=== PATIENT | male | born 1955 | race Caucasian/White ===

== ENCOUNTER → 2017-08-10 14:17 | Outpatient (CLI) | payer OTHER, SELFPAY ==
[2017-08-10 18:01] LABS: Absolute Neutrophil Count 5.6 X10^3/uL (2.0-7.7); Basophil# 0.02 X10^3/uL; Basophil% 0.2 % (0-1); Eosinophil# 0.47 X10^3/uL; Eosinophils% 4.8 % (0-5); Hematocrit 34.2 % (40-54); Hemoglobin 10.5 g/dl (13.0-16.5); Lymphocyte % 27.7 % (19-41); Mean Corp Hgb Conc 30.7 g/gl (32-36); Mean Corpuscular Hgb 27.4 pg (27.0-32.0); Mean Corpuscular Volume 89.3 fL (80-94); Mean Platelet Vol. 10.5 fl (6.2-12.0); Monocyte# 0.94 X10^3/uL; Monocyte% 9.6 % (0-10); Neutrophil # 5.58 X10^3/uL (2.7-7.7); Neutrophil % 57.3 % (47-70); Platelet Count 348 K/mm3 (150-450); RBC Distribution Width CV 13.5 % (11.6-14.6); Red Blood Count 3.83 M/mm3 (4.6-6.2); White Blood Count 9.8 K/mm3 (4.4-11.0)
[2017-08-10 18:22] LABS: POSITIVE COUNT NO; POSITIVE DIFFERENTIAL NO; POSITIVE MORPHOLOGY NO
[2017-08-10 18:31] LABS: Anion Gap 12 (5-15); BUN 28 mg/dL (7-18); BUN/Creat Ratio 17.5 RATIO (10-20); Calcium,Total 8.6 mg/dL (8.5-10.1); Chloride 104 mmol/L (98-107); EST Glomerular Filtration Rate 47 mL/min (>60); Est Glom Filt Rate - Afr Amer 57 mL/min (>60); Glucose 77 mg/dL (74-106); Potassium 3.9 mmol/L (3.5-5.1); Sodium Level 140 mmol/L (136-145)
== END ==
PROVIDERS: Family Provider Family Medicine; PCP Family Medicine; Visit Provider Family Medicine
DX: R55 Syncope and collapse (principal)
CPT/HCPCS: 36415; 80048; 85025

== ENCOUNTER → 2017-09-30 14:52 | Outpatient (CLI) | payer OTHER, SELFPAY ==
[2017-09-30 16:07] LABS: Anion Gap 8 (5-15); BUN 25 mg/dL (7-18); BUN/Creat Ratio 12.9 RATIO (10-20); Chloride 107 mmol/L (98-107); Creatinine, Serum 1.94 mg/dL (0.70-1.30); EST Glomerular Filtration Rate 37 mL/min (>60); Est Glom Filt Rate - Afr Amer 45 mL/min (>60); Glucose 124 mg/dL (74-106); Potassium 3.9 mmol/L (3.5-5.1); Sodium Level 141 mmol/L (136-145)
== END ==
PROVIDERS: Family Provider Family Medicine; PCP Family Medicine; Visit Provider Family Medicine
DX: R42 Dizziness and giddiness (principal)
CPT/HCPCS: 36415; 80048

== ENCOUNTER → 2017-11-14 16:55 | Outpatient (CLI) | payer OTHER, SELFPAY ==
--- NOTE | 2017-11-14 16:55 | DT_ITS ---
This patient was seen during an EMR downtime November 07, 2017 - November 14, 2017. This patient may have a combination of paper and electronic documentation or all paper documentation. All documentation is viewable within the e-chart portion of [facility] for each patient visit.
[2017-11-14 18:00] LABS: Anion Gap 8 (5-15); BUN 20 mg/dL (7-18); BUN/Creat Ratio 16.3 RATIO (10-20); Calcium,Total 8.5 mg/dL (8.5-10.1); Chloride 108 mmol/L (98-107); Creatinine, Serum 1.23 mg/dL (0.70-1.30); EST Glomerular Filtration Rate 63 mL/min (>60); Est Glom Filt Rate - Afr Amer 77 mL/min (>60); Glucose 85 mg/dL (74-106); Potassium 3.9 mmol/L (3.5-5.1); Sodium Level 143 mmol/L (136-145)
== END ==
PROVIDERS: Family Provider Family Medicine; PCP Family Medicine; Visit Provider Family Medicine
DX: I10 Essential (primary) hypertension (principal)
CPT/HCPCS: 36415; 80048

== ENCOUNTER → 2017-12-30 13:58 | Outpatient (CLI) | payer MEDICARE, SELFPAY ==
[2017-12-30 16:04] LABS: Anion Gap 7 (5-15); BUN 23 mg/dL (7-18); BUN/Creat Ratio 20.5 RATIO (10-20); Calcium,Total 8.7 mg/dL (8.5-10.1); Chloride 112 mmol/L (98-107); Creatinine, Serum 1.12 mg/dL (0.70-1.30); EST Glomerular Filtration Rate 70 mL/min (>60); Est Glom Filt Rate - Afr Amer 85 mL/min (>60); Glucose 115 mg/dL (74-106); Magnesium 2.2 mg/dL (1.6-2.6); Sodium Level 145 mmol/L (136-145)
== END ==
PROVIDERS: Family Provider Family Medicine; PCP Family Medicine; Visit Provider Family Medicine
DX: N28.9 Disorder of kidney and ureter, unspecified (principal)
CPT/HCPCS: 36415; 80048; 83735

== ENCOUNTER → 2018-11-03 | Outpatient (CLI) | payer MEDICARE, SELFPAY ==
[2018-11-03 16:31] LABS: Anion Gap 9 (5-15); BUN 23 mg/dL (7-18); BUN/Creat Ratio 23.1 RATIO (10-20); Calcium,Total 8.7 mg/dL (8.5-10.1); Chloride 106 mmol/L (98-107); Cholesterol 162 mg/dL (200); Creatinine, Serum 0.99 mg/dL (0.70-1.30); EST Glomerular Filtration Rate 81 mL/min (>60); Est Glom Filt Rate - Afr Amer 98 mL/min (>60); Glucose 72 mg/dL (74-106); High Density Lipoprotein 50 mg/dL; PSA,Total - Annual Screen 2.01 ng/mL (0.00-4.00); Potassium 4.5 mmol/L (3.5-5.1); Sodium Level 142 mmol/L (136-145); Triglycerides 164 mg/dL; Very Low Density Lipoprotein 33 mg/dL (5-40)
== END | disposition home or self-care (01) ==
PROVIDERS: Family Provider Family Medicine; PCP Family Medicine; Referring Provider Family Medicine; Visit Provider Family Medicine
DX: N40.0 Benign prostatic hyperplasia without lower urinary tract symptoms (principal); F32.9 Major depressive disorder, single episode, unspecified; Z12.5 Encounter for screening for malignant neoplasm of prostate
CPT/HCPCS: 36415; 80048; 80061; 84153; G0103

== ENCOUNTER → 2019-02-26 | Outpatient (CLI) | payer MEDICARE, SELFPAY ==
--- NOTE | 2019-02-26 08:30 | RAD_ITS ---
STUDY: X-RAY - ESOPHAGUS (BARIUM SWALLOW) WITH FLUOROSCOPY REASON FOR EXAM: Male, 64 years old. Dysphagia. Cough and reflux. TECHNIQUE: 24 view(s) of the esophagus were obtained following swallowing of barium. FLUOROSCOPY TIME (if supplied): (0:41) minutes/seconds COMPARISON: None. FINDINGS: There is no demonstrated esophageal foreign body. Tertiary contractions of the distal esophagus. Normal gastroesophageal junction, without a demonstrated hiatal hernia. The patient ingested a 12 mm tablet of barium. The tablet is trapped at the gastroesophageal junction. There is atherosclerotic tortuosity of the aortic arch and descending thoracic aorta. Normal visualized pulmonary parenchyma. There are diffuse degenerative changes of the visualized thoracic spine. RAD/Esophagus Only IMPRESSION: Tertiary contractions of the distal esophagus. The 12 mm tablet of barium is trapped at the gastroesophageal junction. Electronically Signed: Glen Conteh, at 13:04 EDT , Service support ,
== END | disposition home or self-care (01) ==
LOC: RAD 08:20
PROVIDERS: Family Provider Family Medicine; PCP Family Medicine; Referring Provider Family Medicine; Visit Provider Family Medicine
DX: R13.10 Dysphagia, unspecified (principal)
CPT/HCPCS: 74220

== ENCOUNTER → 2019-04-27 07:54 | Outpatient (CLI) | payer MEDICARE, SELFPAY ==
--- NOTE | 2019-04-27 08:01 | AAVD_ITS ---
Reason For Study: FAM HX AA Aorta Measurements Aorta Doppler Measurements Proximal aorta measures1.8 X 1.75cm. in cross- Peak systolic flow velocities within the proximal sectional axis. aorta measure 55 cm/sec. Proximal aorta measures1.87cm. in longitudinal Peak systolic flow velocities within the mid aorta axis. measure 65 cm/sec. Mid aorta measures1.9 X 1.82cm. in cross-sectionalPeak systolic flow velocities within the distal axis. aorta measure 57 cm/sec. Mid aorta measures1.86cm. in longitudinal axis. Distal aorta measures1.73 X 1.78cm. in cross- sectional axis. Distal aorta measures1.78cm. in longitudinal axis. Left Iliac Artery Left iliac artery measures 1.4 cm. in the longitudinal axis. Left iliac artery measures 1.4 X 1.5 cm. in the cross-sectional axis. Peak systolic velocity in the left iliac artery measures 44 cm/sec. Right Iliac Artery Right iliac artery measures 1.3 cm. in the longitudinal axis. Right iliac artery measures 1.2 X 1.2 cm. in the cross-sectional axis. Peak systolic velocity in the right iliac artery measures 40 cm/sec. Procedure Aorta IVC Iliac vasculature or bypass grafts 71726. Exam performed in department. Interpretation Summary Maximal aortic diameter mid aorta 1.9 x 1.82 cm with normal flow velocity Left iliac 1.4 x 1.5 cm, normal flow velocity Right iliac 1.2 x 1.2 cm, normal flow velocity Ordering Physician: Vern Richardson Referring Physician: Vern Richardson Performed By: Joselin Braden, SUZANNE, RVT
== END ==
PROVIDERS: Family Provider Family Medicine; PCP Family Medicine; Referring Provider Family Medicine; Visit Provider Family Medicine
DX: I10 Essential (primary) hypertension (principal); Z82.49 Family history of ischemic heart disease and other diseases of the circulatory system
CPT/HCPCS: 93978

== ENCOUNTER → 2019-05-21 09:38 | Outpatient (CLI) | payer MEDICARE, SELFPAY ==
--- NOTE | 2019-05-21 09:41 | RAD_ITS ---
STUDY: X-RAY - ESOPHAGUS (BARIUM SWALLOW) WITH FLUOROSCOPY REASON FOR EXAM: Male, 64 years old. Dysphasia and gastroesophageal reflux disease. TECHNIQUE: 20 view(s) of the esophagus were obtained following swallowing of barium. FLUOROSCOPY TIME (if supplied): (0:38) minutes/seconds COMPARISON: None. FINDINGS: There is no demonstrated esophageal foreign body. There is evidence of tertiary contractions involving the distal portion of the esophagus. Normal gastroesophageal junction, without a demonstrated hiatal hernia. The patient ingested a 12 mm tablet of barium. The tablet is trapped at the gastroesophageal junction. There is atherosclerotic tortuosity of the aortic arch and descending thoracic aorta. Normal visualized pulmonary parenchyma. Normal visualized osseous structures of the thorax. RAD/Esophagus Only IMPRESSION: Tertiary contractions of the distal esophagus. The 12 mm tablet barium is trapped at the gastroesophageal junction. Electronically Signed: Glen Conteh, at 15:39 EST , Service support ,
== END ==
PROVIDERS: Family Provider Family Medicine; PCP Family Medicine; Referring Provider Internal Medicine Gastroenterology; Visit Provider Internal Medicine Gastroenterology
DX: R13.10 Dysphagia, unspecified (principal)
CPT/HCPCS: 74220

== ENCOUNTER → 2019-06-14 12:36 | Outpatient (CLI) | payer MEDICARE, SELFPAY ==
--- NOTE | 2019-06-14 12:40 | RAD_ITS ---
STUDY: X-RAY CHEST REASON FOR EXAM: Male, 64 years old. Sob TECHNIQUE: PA and lateral views of the chest. COMPARISON: 2014 FINDINGS: There are interstitial fibrotic changes of the lungs. There is no demonstrated pleural abnormality. Normal size heart. Normal mediastinum and rosalee. Normal visualized pulmonary arteries. Normal visualized aortic arch and descending thoracic aorta. Normal visualized thoracic spine. Normal visualized ribs, clavicles, and shoulders. There is no demonstrated abnormality of the visualized soft tissue structures of the upper abdomen. RAD/Chest PA and Lateral IMPRESSION: Chronic interstitial changes, no acute pulmonary process Electronically Signed: Chang Nugent MD at 17:07 EST , Service support ,
[2019-06-14 14:14] LABS: Absolute Lymphocyte Count 1.98 X10^3/uL (0.83-4.51); Absolute Neutrophil Count 7.7 X10^3/uL (2.0-7.7); Basophil# 0.02 X10^3/uL; Basophil% 0.2 % (0-1); Eosinophil# 0.17 X10^3/uL; Eosinophils% 1.4 % (0-5); Lymphocyte # 1.98 X10^3/ul (4.0); Lymphocyte % 16.4 % (19-41); Mean Corp Hgb Conc 31.1 g/dL (32-36); Mean Corpuscular Hgb 26.8 pg (27.0-32.0); Mean Platelet Vol. 11.3 fl (6.2-12.0); Monocyte# 2.14 X10^3/uL; Monocyte% 17.7 % (0-10); NRBC Flagged by Analyzer 0 % (0-5); Neutrophil # 7.71 X10^3/uL (2.7-7.7); Neutrophil % 63.9 % (47-70); POSITIVE DIFFERENTIAL YES; Platelet Count 234 K/mm3 (150-450); RBC Distribution Width CV 13.4 % (11.6-14.6); RBC Distribution Width SD 42.5 fl (35.1-43.9); Red Blood Count 5.23 M/mm3 (4.6-6.2); White Blood Count 12.1 K/mm3 (4.4-11.0)
[2019-06-14 14:19] LABS: Differential Indicated SCAN CRITERIA MET
[2019-06-14 14:24] LABS: Anion Gap 8 (5-15); BUN 22 mg/dL (7-18); BUN/Creat Ratio 12.9 RATIO (10-20); Chloride 106 mmol/L (98-107); EST Glomerular Filtration Rate 43 mL/min (>60); Est Glom Filt Rate - Afr Amer 52 mL/min (>60); Glucose 113 mg/dL (74-106); Potassium 3.7 mmol/L (3.5-5.1); Sodium Level 139 mmol/L (136-145)
[2019-06-15 14:21] LABS: Pathologist Review Reviewed
== END ==
PROVIDERS: Family Provider Family Medicine; PCP Family Medicine; Referring Provider Family Medicine; Visit Provider Family Medicine
DX: R06.02 Shortness of breath (principal)
CPT/HCPCS: 36415; 71046; 80048; 85025

== ENCOUNTER → 2020-06-13 16:11 | Outpatient (CLI) | payer MEDICARE, OTHER, SELFPAY ==
--- NOTE | 2020-06-13 16:20 | RAD_ITS ---
HISTORY: LEFT KNEE PAIN ADDITIONAL HISTORY: None provided. EXAMINATION/TECHNIQUE: XR Knee 3 Views Left Number of images including paperwork: 3 COMPARISON: None FINDINGS: BONES: No acute fracture. JOINTS: No subluxation. Severe degenerative changes in the medial compartment with joint space narrowing, subchondral sclerosis and osteophyte formation. Mild degenerative changes elsewhere. Small to moderate sized joint effusion. SOFT TISSUES: No distinct foreign body. RAD/Knee 3 Views IMPRESSION: Degenerative changes without acute osseous abnormality. Left knee joint effusion. at 0442 Reported and signed by: Kandis Diaz MD Electronically Signed: Kandis Diaz MD at 4:42 EST Tel , Service support ,
== END ==
PROVIDERS: PCP Family Medicine; Referring Provider Anesthesiology Pain Medicine; Visit Provider Anesthesiology Pain Medicine
DX: M25.562 Pain in left knee (principal)
CPT/HCPCS: 73562

== ENCOUNTER → 2020-08-08 13:55 | Outpatient (CLI) | payer MEDICARE, OTHER, SELFPAY ==
[2020-08-08 18:16] LABS: Anion Gap 8 (5-15); BUN 21 mg/dL (7-18); BUN/Creat Ratio 19.6 RATIO (10-20); Calcium,Total 8.9 mg/dL (8.5-10.1); Chloride 105 mmol/L (98-107); Cholesterol 125 mg/dL (200); Creatinine, Serum 1.07 mg/dL (0.70-1.30); EST Glomerular Filtration Rate 74 mL/min (>60); Est Glom Filt Rate - Afr Amer 89 mL/min (>60); Glucose 85 mg/dL (74-106); High Density Lipoprotein 45 mg/dL; Potassium 3.8 mmol/L (3.5-5.1); Sodium Level 140 mmol/L (136-145); Triglycerides 196 mg/dL; Very Low Density Lipoprotein 39 mg/dL (5-40)
== END ==
PROVIDERS: PCP Family Medicine; Referring Provider Family Medicine; Visit Provider Family Medicine
DX: I10 Essential (primary) hypertension (principal)
CPT/HCPCS: 36415; 80048; 80061

== ENCOUNTER 2020-08-28 13:30 | Outpatient (RCR) | payer MEDICARE, OTHER, SELFPAY ==
--- NOTE | 2020-07-09 17:02 | HP.PTEVAL_ITS ---
Patient's Visit Information DIANE HERNANDES is a 65 year old M referred to Physical Therapy by Dr. Steve Ozuna MD with a diagnosis of L reverse TSA around 06/30. Date of Evaluation: 07/09/20 Physical Therapist: Inocencio Hunt, DPT, OCS, CSCS - Visit Plan Frequency: 2x /Week Duration: 2 Months Plan: 2x/week for 4-8 weeks... 1. elbow and shoulder PROM gentle but firm,s cap ROM, isometrics for circulation. Can progress to AAROM as tolerated and pt has tatiana at home to progress to. Pt will bring dtr to learn PROM next session. 2. Scar massage, Manual stretching to tolerance. 3. Strength L shoulder and posture. 4. ice as needed. Progression of HEP. - Subjective L shoulder reverse TSA 9 days ago around 06/29/20/ Was painful and could not lift it over head for years. Was scoped 10 yrs ago. No RC to repair so did reverse. Pain level is manageable with meds 5/10 over the shoulder adn down to elbow. In sling all the time except shower. Dtr helps zi[[ing coat. Sleep in recliner still and sleeps plenty 6-8 hours. Stumbled and twisted shoulder jarring it and it hurt.Live with . Dresses self and cooking and cleaning very little, everything is modified. Not employed. Hobbies: Wants to golf. HEP is getting out of sling and rest on knee and hand ROM, hand ROM, pendulum. - Pain R shoulder Pain Intensity (Out of 10): 5 Pain Intensity Range: 4, 8 - Objective Posture is forward head adn scapula, protected L UE, avoids extending elbow. - 30 L elbow extension in standing.-20 PROM elbow extension limited by pain. Full flexion . Pain is in elbow with attempted extension.but needs encouraged last few degrees on L. ScapulaROM on L 50% of R. Incisions OK today without problems subjectively. hand and wrist AROM and strength symmetrical and good B. Elbow strength not tested L. Cervical aROM normal and painfree and symmetrical. PROM L shoulder 80 flexion, 80 abduction limited by patients pain. ext rotation to 5 degrees firm endfeel adn painful. - Goals Goal 1:: ST AAROM to 130 elevation and 45 ext rotaion Goal Time Frame: 2-4 Weeks Goal 2:: Pain 0-2/10 at all times and sleep without interruption in bed. Goal Time Frame: 4-6 Weeks Goal 3:: Initiate strengthening L shoulder and elbow without pain. Goal 4:: LT: Plans to resume golfing Goal Time Frame: 6-8 Weeks Goal 5:: Pt feel 80% back to normal activities at home Goal Time Frame: 6-8 Weeks Goal 6:: Quick dash score less than 20 Goal Time Frame: 6-8 Weeks - Rehabilitation Potential Physical Therapy Diagnosis: s/p L rev TSA Rehabilitation Potential: Fair - Anticipated Interventions Patient/Client Instruction: Educate patient on: Condition, Plan of Care For the Purpose of:: To decrease pain, To increase ROM, To improve muscle performance and motor function, To increase tolerance to activity/condition/position, To improve ability of physical actions for home/community/work/leisure Therapeutic Exercise to Include: Strength training, Postural training, Flexibilty training, Passive ROM, Active ROM, Scapular Strength/Stabilization For the Purpose of:: To decrease pain, To increase ROM, To improve muscle performance and motor function, To increase tolerance to activity/condition/position, To improve ability of physical actions for home/community/work/leisure Manual Therapy Techniques to Include: Scar massage, Passive ROM, Soft tissue mobilization For the Purpose of:: To increase ROM Cryotherapy (ice pack, ice massage): Yes For the Purpose of:: To decrease pain, To decrease swelling/inflammation Thank you for the opportunity to evaluate your patient. For Medicare and Medicare HMO plans, please review the plan of care and approve it. It will need to be FAXED BACK to us at [phone] for Medicare purposes. For Medicare only, by signing this I certify the plan of care. Please let me know if there are questions or concerns regarding this plan of care. Physician Signature: D ate:
--- NOTE | 2020-07-31 16:56 | HP.PTREVAL_ITS ---
Dr. Steve Ozuna MD, It has been my pleasure to treat DIANE HERNANDES over the last 6 visits for L reverse TSA around 06/30. Please see the progress note below for an update on the physical therapy plan of care! Subjective: had TKA last week adn not sleeping a whole lot. Going the right way. Lifting arm easier adn higher.Pain 0-2/10 at rest. Worse with lifting 6/10. Sleeping in recliner due to shoulder pain. To Dr. Ozuna next week. HEP: ROM and scap circles adn stretches. Objective/Function: 115 aROM L elelvation, AROM er to neutral but prom elevation to 133 adn ext rotaation to 30. Still expected weakness adn ROM deficits , pain coming along well. Appropriate to cotninue POC toward goals. Plan Plan: 2x/week to continue AAROM, PROM and start isometric strength neutral and painfree. Pt to doctor next week. Goals Goal 1:: ST AAROM to 130 elevation and 45 ext rotaion Goal Time Frame: 2-4 Weeks Goal Progress: Progressing Goal 2:: Pain 0-2/10 at all times and sleep without interruption in bed. Goal Time Frame: 4-6 Weeks Goal Progress: Progressing Goal 3:: Initiate strengthening L shoulder and elbow without pain. Goal 4:: LT: Plans to resume golfing Goal Time Frame: 6-8 Weeks Goal 5:: Pt feel 80% back to normal activities at home Goal Time Frame: 6-8 Weeks Goal 6:: Quick dash score less than 20 Goal Time Frame: 6-8 Weeks Anticipated Interventions Patient/Client Instruction: Educate patient on: Condition, Plan of Care For the Purpose of:: To decrease pain, To increase ROM, To improve muscle performance and motor function, To increase tolerance to activity/condition/position, To improve ability of physical actions for home/community/work/leisure Therapeutic Exercise to Include: Strength training, Postural training, Flexibilty training, Passive ROM, Active ROM, Scapular Strength/Stabilization For the Purpose of:: To decrease pain, To increase ROM, To improve muscle performance and motor function, To increase tolerance to activity/condition/position, To improve ability of physical actions for girish e/community/work/leisure Manual Therapy Techniques to Include: Scar massage, Passive ROM, Soft tissue mobilization For the Purpose of:: To increase ROM Cryotherapy (ice pack, ice massage): Yes For the Purpose of:: To decrease pain, To decrease swelling/inflammation Please do not hesitate to contact me at [phone] by phone or if you have questions or concerns regarding this new plan of care! Sincerely, Inocencio Hunt, DPT, OCS, CSCS
--- NOTE | 2020-10-21 10:13 | HP.PT.NRP ---
DIANE HERNANDES was seen in my office for initial evaluation on 07/09/20. The following Plan of Care was established for this patient: Initial Frequency: 2x /Week Initial Duration: 2 Months Patient/Client Instruction: Educate patient on: Condition, Plan of Care For the Purpose of:: To decrease pain, To increase ROM, To improve muscle performance and motor function, To increase tolerance to activity/condition/position, To improve ability of physical actions for home/community/work/leisure Therapeutic Exercise to Include: Strength training, Postural training, Flexibilty training, Passive ROM, Active ROM, Scapular Strength/Stabilization For the Purpose of:: To decrease pain, To increase ROM, To improve muscle performance and motor function, To increase tolerance to activity/condition/position, To improve ability of physical actions for home/community/work/leisure Manual Therapy Techniques to Include: Scar massage, Passive ROM, Soft tissue mobilization For the Purpose of:: To increase ROM Cryotherapy (ice pack, ice massage): Yes For the Purpose of:: To decrease pain, To decrease swelling/inflammation This patient was last seen in our office 08/28/20. Pertinent comments regarding their Physical therapy will appear below: Pt seen 8 visits and was 25% better. He cancelled his alst couple visits as he was returning to doctor. At this point, it has been over 6 weeks and I will discontinue due to nonattendance. At this point I will be discontinuing this patient from physical therapy. I would be happy to see this patient again in the future if found appropriate by the physician. Thank you! Inocencio Hunt, DPT, OCS, CSCS
== END 2020-08-28 19:00 | disposition home or self-care (01) ==
LOC: PT 13:30
PROVIDERS: PCP Family Medicine; Referring Provider Orthopaedic Surgery; Visit Provider Orthopaedic Surgery
DX: M12.812 Other specific arthropathies, not elsewhere classified, left shoulder (principal)
CPT/HCPCS: 97110; 97140; 97161; 97530

== ENCOUNTER → 2021-06-02 15:10 | Outpatient (CLI) | payer MEDICARE, OTHER, SELFPAY ==
--- NOTE | 2021-06-02 16:00 | MRI_ITS ---
STUDY: MRI LUMBAR SPINE WITHOUT CONTRAST REASON FOR EXAM: Male, 66 years old. IDD TECHNIQUE: Standardized fat and water weighted pulse sequences were obtained in the sagittal and axial planes. COMPARISON: 02/28/2017 FINDINGS: Mild straightening of the alignment of the columns of the lumbar spine is visualized. No evidence of spondylolisthesis is seen. The lumbar vertebral bodies demonstrate no evidence of compression deformity, multilevel degenerative endplate changes seen. No evidence of T2 prolongation within the marrow of the lumbar vertebral bodies on the FLAIR sequence to suggest for acute fracture, edema or infiltrative process. Decreased intervertebral disc height visualized in the lumbar spine but most prominent at L1-L2 and L2-L3 . Disc desiccation visualized throughout the lumbar spine. The cord terminates at the level of the T12-L1 intervertebral disc space, there is a well-circumscribed lesion visualized along the dorsal aspect of the conus measuring 1.3 x 0.6 cm, it demonstrates T2 prolongation on both T1 and T2 weighted imaging with suppression of signal on the FLAIR sequence, no axial images were obtained through this lesion contrast was not administered. Limited images suggestive of intradural extra medullary in location, findings suggestive of a cord lipoma. Otherwise no abnormal signal intensity visualized within the terminal cord, terminal nerve fibers demonstrate no evidence of thickening or clumping. Normal visualized sacral ala. Normal visualized paraspinous soft tissue structures. L1-2: Right far lateral disc bulge with mild effacement of the right lateral space, hypertrophic changes of the facet joints bilaterally. No significant narrowing of the spinal canal with mild narrowing of bilateral neuroforamina seen at this level. L2-3: Circumferential disc bulge with hypertrophic changes in the facet joints bilaterally, mild narrowing of the spinal canal with moderate narrowing of bilateral neural foramina seen at this level. L3-4: Circumferential disc bulges hypertrophic changes in the facet joints and ligamentum flavum seen at this level, no significant narrowing of the spinal canal with mild to moderate narrowing of bilateral neuroforamina seen at this level. L4-5: Posterior disc bulges hypertrophic changes in the facet joints visualized bilaterally this level, mild effacement of the ventral CSF spaces but no significant narrowing of the spinal canal is seen, mild to moderate narrowing of the neural foramina is visualized bilaterally at this level. L5-S1: Posterior disc bulges hypertrophic changes in the facet joints visualized bilaterally this level, mild effacement of the ventral CSF spaces but no significant narrowing of the spinal canal is seen, mild to moderate narrowing of the neural foramina is visualized bilaterally at this level. MRI/Spine Lumbar (Routine) IMPRESSION: Multilevel degenerative changes of the lumbar spine visualized with mentioned above. 1.3 cm lesion visualized in the posterior aspect of the the terminal cord, suboptimally evaluated however suggestion of intradural and extramedullary location and signal intensity suggestive of lipoma. Electronically Signed: Austyn Medina MD at 8:58 EST Tel , Service support ,
== END ==
PROVIDERS: PCP Family Medicine; Referring Provider Anesthesiology Pain Medicine; Visit Provider Anesthesiology Pain Medicine
DX: M51.37 Other intervertebral disc degeneration, lumbosacral region (principal)
CPT/HCPCS: 72148

== ENCOUNTER → 2022-03-18 | Outpatient (CLI) | payer MEDICARE, OTHER, SELFPAY ==
[2022-03-18 15:54] LABS: ALB/GLOB Ratio 0.9 RATIO (0.9-2.4); AST(SGOT) 26 U/L (15-37); Alanine Aminotransfer ALT/SGPT 35 U/L (16-61); Albumin, Serum 3.6 g/dL (3.2-5.0); Alkaline Phosphatase 92 U/L (45-117); Anion Gap 6 (5-15); BUN 24 mg/dL (7-18); BUN/Creat Ratio 22.4 RATIO (10-20); Calcium,Total 8.8 mg/dL (8.5-10.1); Chloride 110 mmol/L (98-107); Cholesterol 131 mg/dL (200); Creatinine, Serum 1.07 mg/dL (0.70-1.30); EST Glomerular Filtration Rate 73 mL/min (>60); Est Glom Filt Rate - Afr Amer 89 mL/min (>60); Globulin 3.9 g/dL (2.2-4.2); Glucose 96 mg/dL (74-106); High Density Lipoprotein 53 mg/dL; Potassium 4.1 mmol/L (3.5-5.1); Protein, Total 7.5 g/dL (6.4-8.2); Sodium Level 141 mmol/L (136-145); Triglycerides 97 mg/dL; Very Low Density Lipoprotein 19 mg/dL (5-40)
== END | disposition home or self-care (01) ==
LOC: MFPLAB 11:41
PROVIDERS: PCP Family Medicine; Referring Provider Family Medicine; Visit Provider Family Medicine
DX: I10 Essential (primary) hypertension (principal)
CPT/HCPCS: 36415; 80053; 80061

== ENCOUNTER → 2022-06-26 | Outpatient (CLI) | payer MEDICARE, OTHER, SELFPAY ==
--- NOTE | 2022-06-26 13:11 | MRI_ITS ---
STUDY: MRI CERVICAL SPINE WITHOUT CONTRAST REASON FOR EXAM: Male, 67 years old. RADICULPATHY, DISC DEGEN TECHNIQUE: Standardized fat and water weighted pulse sequences were obtained in the sagittal and axial planes. COMPARISON: February 02, 2016 plain films, FINDINGS: Craniocervical junction is intact and aligned. There is reversal of cervical lordosis with mild kyphosis centered on C5-C6. Vertebral bodies are intact without displacement. Marrow and paraspinous soft tissues are normal. C2-C3 has patent canal and foramina. C3-C4 has uncinate and facet hypertrophy, asymmetrically worse on the left. There is mild canal stenosis without cord compression. Left foramen is moderately stenotic, right patent. C4-C5 has uncinate and facet hypertrophy and broad disc endplate osteophyte. There is mild canal stenosis. Left foramen is mildly stenotic, right is patent. C5-C6 has uncinate and facet hypertrophy and broad disc endplate osteophyte. There is moderate cord compression and moderate left and mild right foraminal stenosis. C6-C7 has uncinate and facet hypertrophy and asymmetric to the left disc endplate osteophyte. There is mild central and mild to moderate left-sided cord compression. Left foramen is mildly stenotic, right is patent. C7-T1 has uncinate and facet hypertrophy and disc degeneration. Canal and foramina are patent. MRI/Spine Cervical (Routine) IMPRESSION: 1. Moderate C5-C6, mild C3-C4, C4-C5 and C6-C7 cord compression. Electronically Signed: Yossi Ambriz MD at 14:55 EST ,
== END | disposition home or self-care (01) ==
LOC: MRI 13:10
PROVIDERS: PCP Family Medicine; Visit Provider Anesthesiology Pain Medicine
DX: M54.12 Radiculopathy, cervical region (principal); M50.30 Other cervical disc degeneration, unspecified cervical region
CPT/HCPCS: 72141

== ENCOUNTER → 2022-12-03 | Outpatient (CLI) | payer MEDICARE, OTHER, SELFPAY ==
[2022-12-03 17:48] LABS: ALB/GLOB Ratio 0.9 RATIO (0.9-2.4); AST(SGOT) 20 U/L (15-37); Alanine Aminotransfer ALT/SGPT 30 U/L (16-61); Albumin, Serum 3.6 g/dL (3.2-5.0); Alkaline Phosphatase 109 U/L (45-117); Anion Gap 6 (5-15); BUN 15 mg/dL (7-18); BUN/Creat Ratio 11.8 RATIO (10-20); Calcium,Total 9.1 mg/dL (8.5-10.1); Chloride 107 mmol/L (98-107); Cholesterol 134 mg/dL (200); Creatinine, Serum 1.27 mg/dL (0.70-1.30); EST Glomerular Filtration Rate 60 mL/min (>60); Est Glom Filt Rate - Afr Amer 73 mL/min (>60); Globulin 3.9 g/dL (2.2-4.2); Glucose 99 mg/dL (74-106); High Density Lipoprotein 49 mg/dL; Potassium 4.1 mmol/L (3.5-5.1); Protein, Total 7.5 g/dL (6.4-8.2); Sodium Level 139 mmol/L (136-145); Triglycerides 125 mg/dL; Very Low Density Lipoprotein 25 mg/dL (5-40)
== END | disposition home or self-care (01) ==
LOC: MFPLAB 15:06
PROVIDERS: PCP Family Medicine; Visit Provider Family Medicine
DX: E78.5 Hyperlipidemia, unspecified (principal)
CPT/HCPCS: 36415; 80053; 80061

== ENCOUNTER 2023-03-24 16:53 | Emergency (ER) | payer MEDICARE, OTHER, SELFPAY ==
[2023-03-24 16:54] VITALS: BP 152/76; PULSE 85; RESP 17; TEMP 36.1; O2SAT 97; BMI 22.3
--- NOTE | 2023-03-24 17:51 | EX.ED.GENINJ ---
HPI History of Present Illness Chief Complaint: Laceration Informant: patient Narrative Narrative: Laceration to the dorsal medial aspect of his left nondominant hand ring finger. This was cut on the blade of a chainsaw. It happened just about an hour or so ago. He takes aspirin but no other blood thinners. No numbness or tingling. He states it really does not hurt at all. [facility] Medical History (Updated 03/24/23 @ 19:[address] Kiran Coyle MD) Cervical spine degeneration High cholesterol Lumbar degenerative disc disease Home Medications alprazolam 1 mg tablet (Xanax) 1 mg PO 4X/DAY 01/30/15 [History Last Taken Unknown] lisinopril 10 mg-hydrochlorothiazide 12.5 mg tablet (Zestoretic) 1 tab PO DAILY 01/30/15 [History Last Taken Unknown] meclizine 25 mg tablet 25 mg PO 4X/DAY PRN PRN Migraine Symptoms 01/30/15 [History Last Taken Unknown] naproxen 500 mg tablet 500 mg PO BID PRN PRN Pain 01/30/15 [History Last Taken Unknown] oxycodone-acetaminophen 5 mg-325 mg tablet 1 tab PO Q6H PRN PRN Pain 01/30/15 [History Last Taken 01/06/16 07:00] pravastatin 40 mg tablet 40 mg PO QHS 01/30/15 [History Last Taken Unknown] sumatriptan succinate 100 mg tablet (Imitrex) 100 mg PO .X1 PRN MIGRAINES 01/30/15 [History Last Taken Unknown] Oxymorphone Hcl [Opana Er] 20 mg PO BID 01/01/16 [History Last Taken Unknown] aspirin 325 mg tablet,delayed release 325 mg PO DAILY@0800 01/01/16 [History Last Taken Unknown] bupropion HCl 150 mg tablet,12 hr sustained-release 150 mg PO BID 01/01/16 [History Last Taken Unknown] quetiapine 300 mg tablet (Seroquel) 300 mg PO QHS 01/01/16 [History Last Taken Unknown] tizanidine 4 mg tablet (Zanaflex) 8 mg PO BID 01/01/16 [History Last Taken Unknown] zolpidem 12.5 mg tablet,extended release,multiphase (Ambien CR) 12.5 mg PO QHS PRN PRN Insomnia 01/01/16 [History Last Taken Unknown] Oxymorphone Hcl [Opana Er] 20 mg PO Q12H ##60 01/06/16 [Rx Last Taken Unknown] docusate sodium 100 mg capsule (DOK) 100 mg PO BID PRN PRN Constipation ##10 01/06/16 [Rx Last Taken Unknown] oxycodone-acetaminophen 5 mg-325 mg tablet 1 - 2 tab PO Q4H PRN PRN Pain #90 tabs 01/06/16 [Rx Last Taken Unknown] promethazine 25 mg tablet 25 mg PO Q4H PRN PRN Nausea ##10 01/06/16 [Rx Last Taken Unknown] doxycycline monohydrate 100 mg capsule 100 mg PO BID #10 CAPSULES 03/24/23 [Rx Last Taken Unknown] Allergy/AdvReac Type Severity Reaction Status Date / Time cefazolin sodium [From Ancef] AdvReac Itching Verified 03/24/23 16:54 niacin AdvReac Itching Verified 03/24/23 16:54 [From Niaspan Extended-Release] Social History Smoking Status: Former smoker ROS ROS ED Constitutional Constitutional ED: Denies chills or fever(s) Gastrointestinal Gastrointestinal: Denies nausea or vomiting Musculoskeletal Musculoskeletal: Denies neck pain Integumentary Reports other Details: see history of present illness. Neurologic Neurologic: Denies paresthesias or weakness Hematologic/Lymphatic Hematologic/Lymphatic: Denies easy bleeding or easy bruising Allergic/Immunologic Allergic/Immunologic ED: Denies urticaria EXAM Physical Exam Narrative Exam Narrative: General: Patient awake alert no acute distress sitting in the chair. HEENT shows no trauma Cardiorespiratory shows easy unlabored breathing. Saturations are normal. Extremities show a flap type laceration to the dorsal medial aspect of the left ring finger overlying the proximal phalanx. Extensor is fully intact. Both flexors are intact. Sensation is intact. No active bleeding. Capillary refill is normal. Of note there is a reason on this. Const Vital Signs: 03/24/23 16:54 03/24/23 19:50 Temperature 97 F L Temperature Source Temporal Pulse Rate 85 76 Respiratory Rate 17 16 Blood Pressure 152/76 H Blood Pressure Mean 101 Pulse Ox 97 98 Oxygen Delivery Method Room Air PROC Procedures Lacerations Left ring finger: Depth: Skin Shape: Flap Prep: Raymon Laceration repair: Irrigated Irrigated (ml): 75 Number of Sutures/[place]: 5 Suture Information: Ethilon, Simple and 4-0 MDM MDM MDM Narrative Medical decision making narrative: To the patient about removal of the ring. He has had it removed and repaired before. I explained that he does have swelling in the ring is already tight. There is no way to get this off without cutting it. He is comfortable with this. We also discussed options. I think with the flap type laceration she he will do much better he was suturing this. 5 to 6 mm wide 15 mm long side. This does lift up. There is some mild devitalization of this. But it does not go deep and does not appear to go into the bone at all. Discharge Plan Triage Chief Complaint: Laceration ED Provider: Kiran Coyle Dx/Rx/DC Orders Clinical Impression: Sutured skin wound, Laceration of left ring finger Instructions: ED Laceration, Hand: All Closures Prescriptions: New doxycycline monohydrate 100 mg capsule 100 mg PO BID Qty: 10 0RF No Action pravastatin 40 MG tablet 40 mg PO QHS Patient Comments: CHOLESTEROL alprazolam [Xanax] 1 MG tablet 1 mg PO 4X/DAY sumatriptan succinate [Imitrex] 100 MG tablet 100 mg PO .X1 PRN oxycodone-acetaminophen 1 TABLET tablet 1 tab PO Q6H PRN PRN (Reason: Pain) meclizine 25 MG tablet 25 mg PO 4X/DAY PRN PRN (Reason: Migraine Symptoms) lisinopril-hydrochlorothiazide [Zestoretic] 1 TABLET tablet 1 tab PO DAILY Patient Comments: BP naproxen 500 MG tablet 500 mg PO BID PRN PRN (Reason: Pain) quetiapine [Seroquel] 300 MG tablet 300 mg PO QHS bupropion HCl 150 MG tablet sustained-release 12 hr 150 mg PO BID Patient Comments: DEPRESSION tizanidine [Zanaflex] 4 MG tablet 8 mg PO BID Patient Comments: PAIN MANAGEMENT aspirin 325 MG tablet 325 mg PO DAILY@0800 Patient Comments: BLOOD THINNER zolpidem [Ambien CR] 12.5 MG tablet,ext release multiphase 12.5 mg PO QHS PRN PRN (Reason: Insomnia) Oxymorphone Hcl [Opana Er] 20 MG Tab.Er.12h 20 mg PO BID Patient Comments: PAIN MANAGEMENT oxycodone-acetaminophen 1 TABLET tablet 1 - 2 tab PO Q4H PRN PRN (Reason: Pain) Qty: 90 0RF promethazine 25 MG tablet 25 mg PO Q4H PRN PRN (Reason: Nausea) Qty: 10 0RF docusate sodium [DOK] 100 MG capsule 100 mg PO BID PRN PRN (Reason: Constipation) Qty: 10 0RF Oxymorphone Hcl [Opana Er] 20 MG Tab.Er.12h 20 mg PO Q12H Qty: 60 0RF Primary Care Provider: Vern Richardson Referrals: Vern Richardson MD [Primary Care Provider] - 10 Day for suture removal Disposition Disposition: Home, Self Care Discharge Date/Time: 03/24/23 19:51
[2023-03-24] MEDS: Diphth,Pertuss(Acell),Tet Vac 0.5 ML Vial IM (18:12)
[2023-03-24] MEDS: Lidocaine 1% (20 ml mdv) 20 ML Vial INFILT (18:12)
[2023-03-24 19:50] VITALS: PULSE 76; RESP 16; O2SAT 98
[2023-03-24] MEDS: Doxycycline 100 MG CAPSULE PO (19:50)
== END 2023-03-24 19:51 | disposition home or self-care (01) ==
PROVIDERS: Emergency Provider Emergency Medicine; PCP Family Medicine; Visit Provider Emergency Medicine
DX: S61.215A Laceration without foreign body of left ring finger without damage to nail, initial encounter (principal); Z87.891 Personal history of nicotine dependence; E78.00 Pure hypercholesterolemia, unspecified; Z79.82 Long term (current) use of aspirin; W29.3XXA Contact with powered garden and outdoor hand tools and machinery, initial encounter; Z23 Encounter for immunization
CPT/HCPCS: 12001; 90471; 90715; 99284

== ENCOUNTER → 2023-08-26 | Outpatient (CLI) | payer MEDICARE, OTHER, SELFPAY ==
[2023-08-26 16:26] LABS: Anion Gap 5 (5-15); BUN 16 mg/dL (7-18); BUN/Creat Ratio 13.2 RATIO (10-20); Calcium,Total 8.9 mg/dL (8.5-10.1); Chloride 109 mmol/L (98-107); Cholesterol 135 mg/dL (200); Creatinine, Serum 1.21 mg/dL (0.70-1.30); EST Glomerular Filtration Rate 63 mL/min (>60); Est Glom Filt Rate - Afr Amer 77 mL/min (>60); Glucose 111 mg/dL (74-106); High Density Lipoprotein 54 mg/dL; Potassium 3.9 mmol/L (3.5-5.1); Sodium Level 141 mmol/L (136-145); Triglycerides 155 mg/dL; Very Low Density Lipoprotein 31 mg/dL (5-40)
== END | disposition home or self-care (01) ==
LOC: MFPLAB 12:06
PROVIDERS: PCP Family Medicine; Visit Provider Family Medicine
DX: Z00.00 Encounter for general adult medical examination without abnormal findings (principal)
CPT/HCPCS: 36415; 80048; 80061

== ENCOUNTER → 2024-02-27 | Outpatient (CLI) | payer MEDICARE, OTHER, SELFPAY ==
[2024-02-27 18:33] LABS: ALB/GLOB Ratio 0.9 RATIO (0.9-2.4); AST(SGOT) 17 U/L (15-37); Alanine Aminotransfer ALT/SGPT 23 U/L (16-61); Albumin, Serum 3.5 g/dL (3.2-5.0); Alkaline Phosphatase 107 U/L (45-117); Anion Gap 7 (5-15); BUN 19 mg/dL (7-18); BUN/Creat Ratio 16.7 RATIO (10-20); Calcium,Total 9.1 mg/dL (8.5-10.1); Chloride 105 mmol/L (98-107); Cholesterol 210 mg/dL (200); Creatinine, Serum 1.14 mg/dL (0.70-1.30); EST Glomerular Filtration Rate 68 mL/min (>60); Est Glom Filt Rate - Afr Amer 82 mL/min (>60); Globulin 3.9 g/dL (2.2-4.2); Glucose 98 mg/dL (74-106); High Density Lipoprotein 48 mg/dL; Protein, Total 7.4 g/dL (6.4-8.2); Sodium Level 138 mmol/L (136-145); Triglycerides 199 mg/dL; Very Low Density Lipoprotein 40 mg/dL (5-40)
== END | disposition home or self-care (01) ==
LOC: MFPLAB 14:41
PROVIDERS: PCP Family Medicine; Visit Provider Family Medicine
DX: I10 Essential (primary) hypertension (principal)
CPT/HCPCS: 36415; 80053; 80061

== ENCOUNTER → 2024-08-08 | Outpatient (CLI) | payer MEDICARE, OTHER, SELFPAY ==
[2024-08-08 19:37] LABS: ALB/GLOB Ratio 1.3 RATIO (0.9-2.4); AST(SGOT) 21 U/L (<=37); Alanine Aminotransfer ALT/SGPT 19 U/L (<=46); Albumin, Serum 4.3 g/dL (3.4-4.8); Alkaline Phosphatase 106 U/L (40-129); Anion Gap 12 (5-15); BUN 23 mg/dL (4-19); BUN/Creat Ratio 21.8 RATIO (10-20); Calcium,Total 9.2 mg/dL (7.6-11.0); Carbon Dioxide 24.5 mmol/L (21.0-32.0); Chloride 104 mmol/L (98-108); Cholesterol 163 mg/dL (<=200); Creatinine, Serum 1.05 mg/dL (0.70-1.20); EST Glomerular Filtration Rate 77 (>60); Globulin 3.3 g/dL (2.2-4.2); Glucose 103 mg/dL (70-99); High Density Lipoprotein 47 mg/dL; Low Density Lipoprotein Calc. 79 mg/dL; Potassium 4.2 mmol/L (3.3-5.1); Protein, Total 7.6 g/dL (5.9-8.4); Sodium Level 140 mmol/L (133-145); Total Bilirubin 0.26 mg/dL (0.00-1.30); Triglycerides 182 mg/dL; Very Low Density Lipoprotein 36 mg/dL (5-40); cholesterol:hdl ratio screen 3.45
== END | disposition home or self-care (01) ==
LOC: MFPLAB 13:46
PROVIDERS: PCP Family Medicine; Referring Provider Family Medicine; Visit Provider Family Medicine
DX: I10 Essential (primary) hypertension (principal)
CPT/HCPCS: 36415; 80053; 80061

== ENCOUNTER → 2024-12-17 | Outpatient (CLI) | payer MEDICARE, OTHER, SELFPAY ==
--- NOTE | 2024-12-17 14:20 | RAD_ITS ---
EXAM: XR Right Ribs and AP Chest, 3 or More Views CLINICAL INDICATION: PAIN TECHNIQUE: Frontal and oblique views of the right ribs and frontal view of the chest. COMPARISON: No relevant prior studies available. FINDINGS: LUNGS AND PLEURAL SPACES: Unremarkable. No consolidation. No pneumothorax. HEART: Unremarkable. No cardiomegaly. MEDIASTINUM: Unremarkable. Normal mediastinal contour. BONES/JOINTS: Unremarkable. No displaced rib fractures. RAD/Ribs Uni Min 3V w/PA Chest IMPRESSION: No displaced rib fractures. Reading Location: [facility]
== END | disposition home or self-care (01) ==
LOC: RAD 14:14
PROVIDERS: PCP Family Medicine; Referring Provider Family Medicine; Visit Provider Family Medicine
DX: R07.81 Pleurodynia (principal)
CPT/HCPCS: 71101

== ENCOUNTER → 2025-02-25 | Outpatient (CLI) | payer MEDICARE, OTHER, SELFPAY ==
--- OUTSIDE RECORDS SUMMARY | 2025-02-25 17:36 | XMS RPT_ITS | CCD ---
Author Organization [facility] Care Team Providers Care Strip Machine Tender Name Role Phone Vern Alvarenga MD Primary Care Provider [phone] VERN ALVARENGA Primary Care Unavailable FELIPE ADAMSON Referring Unavailable FELIPE ADAMSON Attending Unavailable FELIPE ADAMSON Admitting Unavailable ANTONIO RATLIFF, DR SHARP Attending Unavailmike Alvarenga MD, Dr. Porras Primary Care Provider [phone] Dylan RATLIFF, Dr. Porras Attending Provider [phone] Dylan RATLIFF, Dr. Porras Referring Provider [phone] Dylan RATLIFF, Dr. Porras Primary Care Provider [phone] Dylan RATLIFF, Dr. Porras Attending Provider Dylan RATLIFF, Dr. Porras Referring Provider Vern Alvarenga Primary Care Unavailable Vern Alvarenga Attending Unavailable Vern Alvarenga Primary Care Unavailable Vern Alvarenga Attending Unavailable Vern Alvarenga Referring Unavailable Vern Alvarenga Primary Care Unavailable Vern Alvarenga Attending Unavailable Dylan, Vern Referring Unavailable Allergies Allergy Classification Reported Allergen(s) Allergy Type Date of Onset Reaction(s) Facility (12 sources) ceFAZolin; Translations: [CEFAZOLIN SODIUM] Drug Allergy 1 Itching [facility] (12 sources) Niacin; Translations: [NIACIN] Drug Allergy 3 Itching [facility] (4 sources) Citalopram; Translations: [CITALOPRAM] Drug Allergy 3 Unknown [facility] (1 source) ceFAZolin; Translations: [cefazolin] Drug Allergy becomes red and itchy [facility] (1 source) Niacin Drug Allergy 3 [facility] Repository Medications Current Medications Medication Drug Class(es) Dates Sig (Normalized) Sig (Original) acetaminophen 325 mg / oxyCODONE hydrochloride 5 mg oral tablet (15 sources) Opioid Agonist Start: 01-06-2016 Oxycodone-Acetamin ophen 1 TABLET tablet Active 1 - 2 {tbl} PO EVERY 4 HOURS NEEDED as needed for Pain January 06, 2016 12:00am Start: 01-06-2016 take 1 tablet by hunter th every four hours as needed Oxycodone-Acetaminophen Active 1 - 2 TABLET PO EVERY 4 HOURS NEEDED January 06, 2016 12:00am Start: 01-30-2015 take 1 tablet by hunter th every six hours as needed Oxycodone-Acetaminophen Active 1 TABLET PO EVERY 6 HOURS NEEDED January 30, 2015 12:00am Start: 12-11-2013 Oxycodone-Acet aminophen 1 TABLET tablet Active 1 {tbl} PO EVERY 6 HOURS NEEDED as needed for Pain January 30, 2015 12:00am ALPRAZolam 1 mg oral tablet (8 sources) Benzodiazepine Start: 12-11-2013 take 1 tablet by mouth four times daily Alprazolam (Xanax) 1 MG tablet Active 1 mg PO 4 TIMES DAILY January 30, 2015 12:00am aspirin 325 mg delayed release oral tablet (7 sources) Platelet Aggregation Inhibitor, Nonsteroidal Anti-inflammatory Drug Start: 01-01-2016 take 1 tablet by mouth once daily Aspirin 325 MG tablet Active 325 mg PO DAILY@0800 January 01, 2016 12:00am 12 hr buPROPion hydrochloride 150 mg extended release oral tablet (7 sources) Aminoketone Start: 01-01-2016 take 1 tablet by mouth twice daily Bupropion Hcl 150 MG tablet sustained-relea se 12 hr Active 150 mg PO TWICE A DAY January 01, 2016 12:00am docusate sodium 100 mg oral capsule (7 sources) Start: 01-06-2016 take 1 capsule by mouth twice daily as needed for constipation Docusate Sodium (Colace) 100 MG capsule Active 100 mg PO TWICE DAILY NEEDED as needed for Constipation January 06, 2016 12:00am doxycycline monohydrate 100 mg oral capsule (4 sources) Tetracycline-class Drug Start: 03-24-2023 take 1 capsule by mouth twice daily Doxycycline Monohydrate 100 mg capsule Active 100 mg PO TWICE A DAY March 24, 2023 12:00am hydroCHLOROthiazide 12.5 mg / lisinopril 10 mg oral tablet (11 sources) Thiazide Diuretic, Angiotensin Converting Enzyme Inhibitor Start: 12-11-2013 take 1 tablet by mouth once daily Lisinopril-Hydr ochlorothiazide (Zestoretic 10/12.5 Tablet) 1 TABLET tablet Active 1 {tbl} PO DAILY January 30, 2015 12:00am take 10-12.5 mg by mouth once li sinopril-hydrochlorothiazide (PRINZIDE) 10-12.5 mg per tablet Take 1 tablet by mouth once daily. 0 Active Comment on above: Take 1 tablet by hunter th once daily. meclizine hydrochloride 25 mg oral tablet (11 sources) Antiemetic Start: 5 take 1 tablet by mouth four times daily as needed Meclizine 25 MG tablet Active 25 mg PO 4 TIMES DAILY NEEDED as needed for Migraine Symptoms January 30, 2015 12:00am Start: 12-11-2013 take 1 tablet by hunter th three times daily meclizine 25 mg oral tablet Dose : 25 mg =, Oral, TID, 0 Refill(s) Start Date: 12/11/13 Status: Ordered Comment on above: Take by mouth. naproxen 500 mg oral tablet (11 sources) Nonsteroidal Anti-inflammatory Drug Start: 12-11-2013 take 1 tablet by mouth twice daily as needed for pain Naproxen 500 MG tablet Active 500 mg PO TWICE DAILY NEEDED as needed for Pain January 30, 2015 12:00am Naproxen Sodium 550 mg tablet Take 550 mg by mouth as needed. 0 Active Comment on above: Take 550 mg by mouth as needed. 12 hr oxyMORphone hydrochloride 20 mg extended release oral tablet (15 sources) Opioid Agonist Start: 01-06-2016 take 1 tablet by mouth every twelve hours Oxymorphone Hcl (Opana Er) 20 MG Tab.Er.12h Active 20 mg PO Q12H 60 0 January 06, 2016 12:00am Start: 01-01-2016 take 1 tablet by hunter th twice daily Oxymorphone Hcl (Opana Er) 20 MG Tab.Er.12h Active 20 mg PO TWICE A DAY January 01, 2016 12:00am Start: 04-03-2015 oxymorphone 10 mg oral tablet Dose : 10 mg = 1 tab(s), Oral, q4h, 0 Refill(s) Start Date: 04/03/15 Status: Ordered pravastatin sodium 40 mg oral tablet (11 sources) HMG-CoA Reductase Inhibitor Start: 01-30-2015 take 1 tablet by mouth at bedtime Pravastatin 40 MG tablet Active 40 mg PO AT BEDTIME January 30, 2015 12:00am Start: 12-11-2013 take 1 tablet by hunter th once daily pravastatin 80 mg oral tablet Dose : 80 mg =, Oral, Daily, 0 Refill(s) Start Date: 12/11/13 Status: Ordered Start: 02-25-2011 take 2 tablets by mo uth once daily at bedtime pravastatin (PRAVACHOL) 20 mg ORAL tablet Take 40 mg by mouth daily at bedtime. 0 02/25/2011 Active Comment on above: Take 40 mg by mouth daily at bedtime. promethazine hydrochloride 25 mg oral tablet (7 sources) Phenothiazine Start: 01-06-20 16 take 1 tablet by mouth every four hours as needed for nausea Promethazine 25 MG tablet Active 25 mg PO EVERY 4 HOURS NEEDED as needed for Nausea 10 0 January 06, 2016 12:00am QUEtiapine 300 mg oral tablet (8 sources) Atypical Antipsychotic Start: 01-01-20 16 take 1 tablet by mouth at bedtime Quetiapine (Seroquel) 300 MG tablet Active 300 mg PO AT BEDTIME January 01, 2016 12:00am Start: 12-11-2013 take 1 tablet by hunter th once daily SEROquel 25 mg oral tablet Dose : 200 mg =, Oral, qDay, 0 Refill(s) Start Date: 12/11/13 Status: Ordered rivaroxaban 20 mg oral tablet (1 source) Factor Xa Inhibitor Start: 04-03-2015 Xarelto 20 mg oral tablet Dose : 20 mg = 1 tab(s), Oral, qHS, # 30 tab(s), 0 Refill(s) Start Date: 04/03/15 Status: Ordered SUMAtriptan 100 mg oral tablet (11 sources) Serotonin-1b and Serotonin-1d Receptor Agonist Start: 12-11-2013 Sumatriptan Succinat e (Imitrex) 100 MG tablet Active 100 mg PO .X1 PRN January 30, 2015 12:00am MIGRAINES Start: 10-21-2010 Sumatriptan Oropeza ccinate (Imitrex) 100 MG tablet Active 100 MG PO .X1 PRN January 30, 2015 12:00am Comment on above: Take 1 tablet by hunter th as needed. at onset of headache. May repeat after 2 hours. tiZANidine 4 mg oral tablet (11 sources) Central alpha-2 Adrenergic Agonist Start: 01-01-2016 Tizanidine (Zanaflex) 4 MG tablet Active 8 mg PO TWICE A DAY January 01, 2016 12:00am Start: 07-31-2012 take 1 tablet by hunter th twice daily Zanaflex 4 mg oral tablet Dose : 4 mg =, Oral, BID, 0 Refill(s) Start Date: 12/11/13 Status: Ordered topiramate 50 mg oral tablet (1 source) Start: 04-24-2015 Topamax 50 mg oral tablet Dose : 50 mg = 1 tab(s), Oral, qHS, 0 Refill(s) Start Date: 04/24/15 Status: Ordered zolpidem tartrate 12.5 mg extended release oral tablet (11 sources) gamma-Aminobuty kevin Acid-ergic Agonist Start: 01-01-2016 take 1 tablet by mouth at bedtime as needed Zolpidem (Ambien Cr) 12.5 MG tablet,ext release multiphase Active 12.5 mg PO AT BEDTIME NEEDED as needed for Insomnia January 01, 2016 12:00am Start: 12-11-2013 Ambien 10 mg o ral tablet 12.5, Oral, qHS, 0 Refill(s) Start Date: 12/11/13 Status: Ordered Start: 10-21-2010 take 1 tablet by hunter th every twenty-four hours as needed zolpidem (AMBIEN) 10 mg ORAL Tab Take 1 tablet by mouth at bedtime as needed (for insomnia.). 0 10/21/2010 Active Comment on above: Take 1 tablet by hunter th at bedtime as needed (for insomnia.). Completed/Discontinued Medications Medication Drug Class(es) Dates Sig (Normalized) Sig (Original) acetaminophen 750 mg / HYDROcodone bitartrate 7.5 mg oral tablet (3 sources) Opioid Agonist Start: 08-28-2012 HYDROCODONE-ACETAM INOPHEN ES 7.5-750 mg per tablet Problems Active Problems Problem Classification Problem Date Documented Da te Episodic/Chronic Adjustment disorders (3 sources) Adjustment disorder with anxious mood; Translations: [Adjustment disorder with anxiety] 10-06-2006 Chronic Disorders of lipid metabolism (3 sources) Mixed hyperlipidemia; Translations: [Mixed hyperlipidemia] 10-06-2006 Chronic Esophageal disorders (2 sources) Gastroesophageal reflux disease; Translations: [Gastro-esophageal reflux disease without esophagitis] Onset: 4 05-10-2023 Chronic Esophageal disorders (2 sources) Spasm of the cricopharyngeus muscle; 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] Onset: 4 05-10-2023 Episodic Essential hypertension (1 source) Essential (primary) hypertension; Translations: [Essential (primary) hypertension] Onset: 5 Chronic Headache; including migraine (6 sources) Migraine without aura; Translations: [Migraine without aura] Onset: 6 07-09-2005 Chronic Headache; including migraine (3 sources) Headache; Translations: [Headache] 10-06-2006 Episodic Open wounds of extremities (4 sources) Laceration of left ring finger; Translations: [Laceration without foreign body of left ring finger without damage to nail, initial encounter] 03-24-2023 Episodic Other gastrointestinal disorders (1 source) Dysphagia; Translations: [Dysphagia, unspecified] 05-10-2023 Episodic Other gastrointestinal disorders (3 sources) Dysphagia, unspecified; Translations: [Dysphagia, unspecified type] Onset: 4 Episodic Other hereditary and degenerative nervous system conditions (3 sources) Blepharospasm; Translations: [Blepharospasm] Onset: 1 10-21-2010 Chronic Other injuries and conditions due to external causes (4 sources) Wound finding; Translations: [Other injury of unspecified body region, initial encounter] 03-24-2023 Episodic Other lower respiratory disease (1 source) Pleurodynia; Translations: [Pleurodynia] Onset: 5 Episodic Other nutritional; endocrine; and metabolic disorders (3 sources) Obesity; Translations: [Obesity, unspecified] 10-07-2006 Chronic Pulmonary heart disease (7 sources) Pulmonary embolism; Translations: [Other pulmonary embolism without acute cor pulmonale] 01-31-2015 Episodic Residual codes; unclassified (1 source) Sleep apnea; Translations: [Unspecified sleep apnea] Onset: 5 11-28-2015 Chronic Spondylosis; intervertebral disc disorders; other back problems (3 sources) Degeneration of cervical intervertebral disc; Translations: [Other cervical disc degeneration, unspecified cervical region] Onset: 8 09-11-2007 Chronic Past or Other Problems Problem Classification Problem Date Documented Da te Episodic/Chronic Other connective tissue disease (3 sources) Soft tissue lesion of shoulder region; Translations: [Bursopathy, unspecified] Onset: 08-21-2007 08-21-2007 Episodic Other nervous system disorders (3 sources) Hemifacial spasm; Translations: [Clonic hemifacial spasm, unspecified] Onset: 10-21-2010 10-21-2010 Episodic Results Test Name Value Interpretation Reference Range Facility Ribs Uni Min 3V w/PA Cheston 12-17-2024 Ribs Uni Min 3V w/PA Chest [facility] [address] [place] [address] [id number] Ribs Uni Min 3V w/PA Chest MR#: [id number] Acct: [id number] Name: DIANE HERNANDES Rep #: [id number] : [id number] M [id number] From: Gerardo Curtis MD PCP: Dr. Vern Alvarenga MD Status: REG CLI Study: Ribs Uni Min 3V w/PA Chest Date of Exam: 12/17 Exam# [id number] Ordering Dr: Vern Alvarenga MD EXAM: XR Right Ribs and AP Chest, 3 or More Views CLINICAL INDICATION: PAIN TECHNIQUE: Frontal and oblique views of the right ribs and frontal view of the chest. COMPARISON: No relevant prior studies available. FINDINGS: LUNGS AND PLEURAL SPACES: Unremarkable. No consolidation. No pneumothorax. HEART: Unremarkable. No cardiomegaly. MEDIASTINUM: Unremarkable. Normal mediastinal contour. BONES/JOINTS: Unremarkable. No displaced rib fractures. RAD/Ribs Uni Min 3V w/PA Chest IMPRESSION: No displaced rib fractures. Reading Location: [facility] CC: Dr. Vern Alvarenga MD Acetone Recovery Worker: Signed Normal [facility] Anion gap in Serum or Plasma Ordered By: Vern Alvarenga on 08-08-2024 Anion gap [Moles/Vol] 12 mmol/L 5-15 [facility] BUN/creatinine ratioOrdered By: Vern Alvarenga on 08-08-2024 Urea nitrogen/Creatinine [Mass ratio] 21.8 mg/mg High 10-20 [facility] Bilirubin, totalOrdered By: Vern Alvarenga on 08-08-2024 Bilirubin [Mass/Vol] 0.26 mg/dL 0.00-1.30 [facility] Calculated very low density lipoprotein (VLDL) cholesterol measurementOrdered By: Vern Alvarenga on 08-08-2024 VLDL Cholesterol 36 mg/dL 5-40 [facility] Carbon dioxide, total [Moles /volume] in Central venous bloodOrdered By: Vern Alvarenga on 08-08-2024 CO2 [Moles/Vol] 24.5 mmol/L 21.0-32.0 [facility] Chloride assayOrdered By: Isidoro Alvarenga on 08-08-2024 Chloride [Moles/Vol] 104 mmol/L 98-108 [facility] Comprehensive Metabolic Prof ilon 08-08-2024 Albumin [Mass/Vol] 4.3 g/dL Normal 3.4-4.8 [facility] Comment on above: Performed By: #### L 500.4100, L500.4050 #### [facility] [address] [place], [address] Albumin/Globulin [Mass ratio] 1.3 {ratio} Normal 0.9-2.4 [facility] Comment on above: Performed By: #### L 500.4100, L500.4050 #### [facility] [address] [place], [address] ALK PHOS 106 U/L Normal 40-129 [facility] Comment on above: Performed By: #### L 500.4100, [id number] #### [facility] [address] [place], [address] ALT [Catalytic activity/Vol] 19 U/L Normal <=46 [facility] Comment on above: Performed By: #### L 500.4100, [id number] #### [facility] [address] [place], [address] AST [Catalytic activity/Vol] 21 U/L Normal <=37 [facility] Comment on above: Performed By: #### L 500.4100, [id number] #### [facility] [address] [place], [address] Bilirubin [Mass/Vol] 0.26 mg/dL Normal 0.00-1.30 [facility] Comment on above: Performed By: #### L 500.4100, [id number] #### [facility] [address] [place], [address] BUN/CRE 21.8 RATIO High 10-20 [facility] Comment on above: Performed By: #### L 500.4100, [id number] #### [facility] [address] [place], [address] Calcium [Mass/Vol] 9.2 mg/dL Normal 7.6-11.0 [facility] Comment on above: Performed By: #### L 500.4100, [id number] #### [facility] [address] [place], [address] Chloride [Moles/Vol] 104 mmol/L Normal 98-108 [facility] Comment on above: Performed By: #### L 500.4100, [id number] #### [facility] [address] [place], [address] CO2 [Moles/Vol] 24.5 mmol/L Normal 21.0-32.0 [facility] Comment on above: Performed By: #### L 500.4100, [id number] #### [facility] [address] [place], [address] Creatinine [Mass/Vol] 1.05 mg/dL Normal 0.70-1.20 [facility] Comment on above: Performed By: #### L 500.4100, [id number] #### [facility] [address] [place], [address] GAP 12 Normal 5-15 [facility] Comment on above: Performed By: #### L 500.4100, [id number] #### [facility] [address] [place], [address] GFR/1.73 sq M.predicted among non-blacks MDRD (S/P/Bld) [Vol rate/Area] 77 mL/min/{1.73_m2} Normal >60 [facility] Comment on above: Result Comment: mL/m in/1.73m2 CKD-EPI Creatinine Equation (2020) Performed By: #### L 500.4100, [id number] #### [facility] [address] [place], [address] Globulin (S) [Mass/Vol] 3.3 g/dL Normal 2.2-4.2 [facility] Comment on above: Performed By: #### L 500.4100, [id number] #### [facility] [address] [place], [address] Glucose [Mass/Vol] 103 mg/dL High 70-99 [facility] Comment on above: Performed By: #### L 500.4100, [id number] #### [facility] [address] [place], [address] Potassium [Moles/Vol] 4.2 mmol/L Normal 3.3-5.1 [facility] Comment on above: Performed By: #### L 500.4100, [id number] #### [facility] [address] [place], [address] Sodium [Moles/Vol] 140 mmol/L Normal 133-145 [facility] Comment on above: Performed By: #### L 500.4100, [id number] #### [facility] [address] [place], [address] T PROT 7.6 g/dL Normal 5.9-8.4 [facility] Comment on above: Performed By: #### L 500.4100, [id number] #### [facility] [address] [place], [address] Urea nitrogen [Mass/Vol] 23 mg/dL High 4-19 [facility] Comment on above: Performed By: #### L 500.4100, [id number] #### [facility] [address] [place], [address] GFR/1.73 sq M.predicted anuj g non-blacks MDRD (S/P/Bld) [Vol rate/Area]Ordered By: Vern Alvarenga on 08-08-2024 Estimated GFR (MDRD) Non-Af Amer 77 >60 [facility] Comment on above: mL/min/1.73m2 CKD-EP I Creatinine Equation (2020) LDL calc ser/plasOrdered By: Vern Alvarenga on 08-08-2024 LDL Cholesterol, Calculated 79 mg/dL [facility] Comment on above: Mwfbvvjdqh=751-996 m g/dL & Higher Qntj=634 mg/dL or greater Laboratory - Chemistry and C hemistry - challengeOrdered By: Vern Alvarenga on 08-08-2024 AST [Catalytic activity/Vol] 21 U/L <38 [facility] Lipid Profileon 08-08-2024 CHOL:HDL 3.45 Normal [facility] Comment on above: Performed By: #### L 500.4100, [id number] #### [facility] [address] [place], [address] Cholesterol [Mass/Vol] 163 mg/dL Normal <=200 [facility] Comment on above: Result Comment: Chol esterol level, Desirable <200 mg/dL Borderline high cholesterol 200-239 mg/dL High cholesterol >=240 mg/dL Recommendations of the NCEP Adult Treatment Panel for the following risk-cutoff thresholds for the [place] population. Performed By: #### L 500.4100, L500.4050 #### [facility] [address] [place] [place], [address] Cholesterol in HDL [Mass/Vol] 47 mg/dL Normal [facility] Comment on above: Result Comment: Asha onal Cholesterol Education Program (NCEP) guidelines: <40 mg/dL: Low HDL-cholesterol (major risk factor for CHD) >= 60 mg/dL: High HDL-cholesterol (negative risk factor for CHD) HDL-cholesterol is affected by a number of factors, e.g. smoking, exercise, hormones, sex and age. Performed By: #### L 500.4100, [id number] #### [facility] [address] [place], [address] Cholesterol in LDL [Mass/Vol] 79 mg/dL Normal [facility] Comment on above: Result Comment: Bord gjvdwq=922-362 mg/dL Higher Vhjq=308 mg/dL or greater Performed By: #### L 500.4100, [id number] #### [facility] [address] [place], [address] Cholesterol in VLDL [Mass/Vol] 36 mg/dL Normal 5-40 [facility] Comment on above: Performed By: #### L 500.4100, [id number] #### [facility] [address] [place], [address] Triglyceride [Mass/Vol] 182 mg/dL Normal [facility] Comment on above: Result Comment: The drugs N-Acetylcysteine and Metamizole may falsely depress this assay. Normal range: <150 mg/dL Borderline High: 150-199 mg/dL High: 200-499 mg/dL Very High: >500 mg/dL Performed By: #### L 500.4100, [id number] #### [facility] [address] [place], [address] Potassium (Unsp spec) [Mass/ Vol]Ordered By: Vern Alvarenga on 08-08-2024 Potassium [Moles/Vol] 4.2 mmol/L 3.3-5.1 [facility] Screening total cholesterol/ high density lipoprotein (HDL) cholesterol ratioOrdered By: Vern Alvarenga on 08-08-2024 Cholesterol.total/Rosa sterol in HDL [Mass ratio] 3.45 {ratio} [facility] Serum creatinine measurement (mass/volume)Ordered By: Vern Alvarenga on 08-08-2024 Creatinine [Mass/Vol] 1.05 mg/dL 0.70-1.20 [facility] Serum globulin measurementOr dered By: Vern Alvarenga on 08-08-2024 Globulin (S) [Mass/Vol] 3.3 g/dL 2.2-4.2 [facility] Serum glucose measurement (m ass/volume)Ordered By: Vern Alvarenga on 08-08-2024 Glucose [Mass/Vol] 103 mg/dL High 70-99 [facility] Serum or plasma alanine duron otransferase (ALT) measurementOrdered By: Vern Alvarenga on 08-08-2024 ALT [Catalytic activity/Vol] 19 U/L <47 [facility] Serum or plasma albumin andres urement (mass/volume)Ordered By: Vern Alvarenga on 08-08-2024 Albumin [Mass/Vol] 4.3 g/dL 3.4-4.8 [facility] Serum or plasma albumin/glob ulin mass ratioOrdered By: Vern Alvarenga on 08-08-2024 Albumin/Globulin [Mass ratio] 1.3 {ratio} 0.9-2.4 [facility] Serum or plasma alkaline tuan sphatase measurementOrdered By: Vern Alvarenga on 08-08-2024 ALP [Catalytic activity/Vol] 106 U/L 40-129 [facility] Serum or plasma calcium andres urement (mass/volume)Ordered By: Vern Alvarenga on 08-08-2024 Calcium [Mass/Vol] 9.2 mg/dL 7.6-11.0 [facility] Serum or plasma cholesterol in HDL measurement (mass/volume)Ordered By: Vern Alvarenga on 08-08-2024 Cholesterol in HDL [Mass/Vol] 47 mg/dL >40 [facility] Comment on above: National Cholesterol Education Program (NCEP) guidelines:<40 mg/dL: Low HDL-cholesterol (major risk factor for CHD)>= 60 mg/dL: High HDL-cholesterol (negative risk factor for CHD)HDL-cholesterol is affected by a number of factors, e.g. smoking, exercise, hormones, sex and age. Serum or plasma cholesterol measurement (mass/volume)Ordered By: Vern Alvarenga on 08-08-2024 Cholesterol [Mass/Vol] 163 mg/dL <201 [facility] Comment on above: Cholesterol level, D esirable <200 mg/dLBorderline high cholesterol 200-239 mg/dLHigh cholesterol >=240 mg/dLRecommendations of the NCEP Adult Treatment Panel for the following risk-cutoff thresholds for the [place] population. Serum or plasma urea nitroge n measurement (mass/volume)Ordered By: Vern Alvarenga on 08-08-2024 Urea nitrogen [Mass/Vol] 23 mg/dL High 4-19 [facility] Sodium levelOrdered By: Vern Alvarenga on 08-08-2024 Sodium [Moles/Vol] 140 mmol/L 133-145 [facility] Total proteinOrdered By: Arabella Alvarenga on 08-08-2024 Protein [Mass/Vol] 7.6 g/dL 5.9-8.4 [facility] Triglycerides measurementOrd ered By: Vern Alvarenga on 08-08-2024 Triglyceride [Mass/Vol] 182 mg/dL <199 [facility] Comment on above: The drugs N-Acetylcy steine and Metamizole may falsely depress this assay. Normal range: <150 mg/dLBorderline High: 150-199 mg/dLHigh: 200-499 mg/dLVery High: >500 mg/dL Comprehensive Metabolic Prof ilon 02-27-2024 Albumin [Mass/Vol] 3.5 g/dL Normal 3.2-5.0 [facility] Comment on above: Performed By: #### L 500.4108, L500.4050 #### [facility] [address] [place], [place], [id number] Albumin/Globulin [Mass ratio] 0.9 {ratio} Normal 0.9-2.4 [facility] Comment on above: Performed By: #### L 500.4100, L500.4050 #### [facility] [address] [place], [address] ALK P 107 U/L Normal 45-117 [facility] Comment on above: Performed By: #### L 500.4100, [id number] #### [facility] [address] [place], [address] ALT [Catalytic activity/Vol] 23 U/L Normal 16-61 [facility] Comment on above: Performed By: #### L 500.4100, L500.4050 #### [facility] [address] [place], [address] AST [Catalytic activity/Vol] 17 U/L Normal 15-37 [facility] Comment on above: Performed By: #### L 500.4100, [id number] #### [facility] [address] [place], [address] Bilirubin [Mass/Vol] 0.30 mg/dL Normal 0.20-1.00 [facility] Comment on above: Result Comment: For patients on eltrombopag therapy, use of Dimension Armbrust TBIL is not recommended. Performed By: #### L 500.4100, L500.4050 #### [facility] [address] [place], [address] BUN/CRE 16.7 RATIO Normal 10-20 [facility] Comment on above: Performed By: #### L 500.4100, [id number] #### [facility] [address] [place], [address] CA,Total 9.1 mg/dL Normal 8.5-10.1 [facility] Comment on above: Performed By: #### L 500.4100, [id number] #### [facility] [address] [place], [address] Chloride [Moles/Vol] 105 mmol/L Normal 98-107 [facility] Comment on above: Performed By: #### L 500.4100, [id number] #### [facility] [address] [place], [address] CO2 [Moles/Vol] 26.0 mmol/L Normal 21.0-32.0 [facility] Comment on above: Performed By: #### L 500.4100, [id number] #### [facility] [address] [place], [address] Creatinine [Mass/Vol] 1.14 mg/dL Normal 0.70-1.30 [facility] Comment on above: Result Comment: The validity of the calculated GFR GFRAA in patients over 70 years has not been determined. Clinical correlation is essential. Performed By: #### L 500.4100, L500.4050 #### [facility] [address] [place], [address] EST GFR - AA 82 mL/min Normal >60 [facility] Comment on above: Result Comment: Afri can Grenadian GFR Calc Performed By: #### L 500.4100, [id number] #### [facility] [address] [place], [address] GAP 7 Normal 5-15 [facility] Comment on above: Performed By: #### L 500.4100, [id number] #### [facility] [address] [place], [address] GFR/1.73 sq M.predicted among non-blacks MDRD (S/P/Bld) [Vol rate/Area] 68 mL/min/{1.73_m2} Normal >60 [facility] Comment on above: Result Comment: Non- GFR Calc Performed By: #### L 500.4100, [id number] #### [facility] [address] [place], [address] Globulin (S) [Mass/Vol] 3.9 g/dL Normal 2.2-4.2 [facility] Comment on above: Performed By: #### L 500.4100, [id number] #### [facility] [address] [place], [address] Glucose [Mass/Vol] 98 mg/dL Normal 74-106 [facility] Comment on above: Performed By: #### L 500.4100, [id number] #### [facility] [address] [place], [address] Potassium [Moles/Vol] 4.0 mmol/L Normal 3.5-5.1 [facility] Comment on above: Performed By: #### L 500.4100, [id number] #### [facility] [address] [place], [address] Sodium [Moles/Vol] 138 mmol/L Normal 136-145 [facility] Comment on above: Performed By: #### L 500.4100, [id number] #### [facility] [address] [place], [address] T PROT 7.4 g/dL Normal 6.4-8.2 [facility] Comment on above: Performed By: #### L 500.4100, [id number] #### [facility] [address] [place], [address] Urea nitrogen [Mass/Vol] 19 mg/dL High 7-18 [facility] Comment on above: Performed By: #### L 500.4100, [id number] #### [facility] [address] [place], [address] Lipid Profileon 02-27-2024 Cholesterol [Mass/Vol] 210 mg/dL High 200 [facility] Comment on above: Result Comment: <200 mg/dL Desirable 200-240 mg/dL Borderline >240 mg/dL High Risk Performed By: #### L 500.4100, [id number] #### [facility] [address] [place], [address] Cholesterol in HDL [Mass/Vol] 48 mg/dL Normal [facility] Comment on above: Result Comment: The drugs N-Acetylcysteine and Metamizole may falsely depress this assay. Reference Range HDL <40 mg/dL Low HDL Cholesterol HDL >or= 60 mg/dL High HDL Cholesterol Performed By: #### L 500.4100, [id number] #### [facility] [address] [place], [address] Cholesterol in LDL [Mass/Vol] 122 mg/dL Normal 0-130 [facility] Comment on above: Performed By: #### L 500.4100, [id number] #### [facility] [address] [place], [address] Cholesterol in VLDL [Mass/Vol] 40 mg/dL Normal 5-40 [facility] Comment on above: Performed By: #### L 500.4100, [id number] #### [facility] [address] [place], [address] Triglyceride [Mass/Vol] 199 mg/dL Normal [facility] Comment on above: Result Comment: The drugs N-Acetylcysteine and Metamizole may falsely depress this assay. Serum Triglycerides Reference Interval Normal <150 mg/dL Borderline high 150 - 199 mg/dL High 200 - 499 mg/dL Very High > or = 500 mg/dL Performed By: #### L 500.4100, [id number] #### [facility] [address] [place], [address] Basophil percentageOrdered B y: Vern Alvarenga on 08-26-2023 Chloride [Moles/Vol] 109 mmol/L 98-[address] [facility] Cholesterol [Mass/Vol] 135 mg/dL <200 [facility] Comment on above: <200 mg/dL Desirable 200-240 mg/dL Borderline >240 mg/dL High Risk Glucose [Mass/Vol] 111 mg/dL 74-106 [facility] Comment on above: Fasting Glucose resu lt from 100 to 125 mg/dL suggests IMPAIRED HOMEOSTASIS per A.D.A. criteria. Potassium [Moles/Vol] 3.9 mmol/L 3.5-5.1 [facility] Sodium [Moles/Vol] 141 mmol/L 136-145 [facility] Triglyceride [Mass/Vol] 155 mg/dL <199 [facility] Comment on above: The drugs N-Acetylcy steine and Metamizole may falsely depress this assay.Serum Triglycerides Reference Interval Normal <150 mg/dL Borderline high 150 - 199 mg/dL High 200 - 499 mg/dL Very High > or = 500 mg/dL Laboratory - Chemistry and C hemistry - challengeOrdered By: Vern Alvarenga on 08-26-2023 Cholesterol in HDL [Mass/Vol] 54 mg/dL >40 [facility] Comment on above: The drugs N-Acetylcy steine and Metamizole may falsely depress this assay. Reference Range HDL <40 mg/dL Low HDL Cholesterol HDL >or= 60 mg/dL High HDL Cholesterol Cholesterol in LDL [Mass/Vol] 50 mg/dL 0-130 [facility] CO2 [Moles/Vol] 27.0 mmol/L 21.0-32.0 [facility] Urea nitrogen/Creatinine [Mass ratio] 13.2 mg/mg 10-20 [facility] No Panel InformationOrdered By: Vern Alvarenga on 08-26-2023 Estimated GFR (MDRD) Amer 77 mL/min >60 [facility] Comment on above: GFR Calc Estimated GFR (MDRD) Non-Af Amer 63 mL/min >60 [facility] Comment on above: Non- GFR Calc VLDL Cholesterol 31 mg/dL 5-40 [facility] Serum or plasma calcium andres urement (mass/volume)Ordered By: Vern Alvarenga on 08-26-2023 Calcium [Mass/Vol] 8.9 mg/dL 8.5-10.1 [facility] Serum or plasma creatinine m easurement (mass/volume)Ordered By: Vern Alvarenga on 08-26-2023 Creatinine [Mass/Vol] 1.21 mg/dL 0.70-1.30 [facility] Comment on above: The validity of the calculated GFR & GFRAA in patients over 70 years has not been determined. Clinical correlation is essential. Serum or plasma urea nitroge n measurement (mass/volume)Ordered By: Vern Alvarenga on 08-26-2023 Urea nitrogen [Mass/Vol] 16 mg/dL 7-18 [facility] Thin prep Papanicolaou smear with manual screeningOrdered By: Vern Alvarenga on 08-26-2023 Thin prep Papanicolaou smear with manual screening 5 5-15 [facility] NURSING PROGon 06-22-2023 NURSING PROG HNO ID: [id number] Author: MILIND HALEY RN Service: Nursing Author Type: Registered Nurse Type: Nursing Progress Note Filed: 06/22/2023 10:48 Note Text: The patient was brought into the procedure room and a time out was done. Patient denies taking any muscle relaxers or blood thinners, with the exception of aspirin - last taken Tuesday evening. Patient denies any surgeries or injuries to nose. After confirmation of potential allergies, a topical analgesic was used to numb the right nares followed by the trans-nasal insertion of a High Resolution Manometry catheter. Pressure bands of the UES and LES were observed on the color contour. The patient was instructed to take a deep breath to verify placement of catheter, diaphragmatic pinch noted on inspiration. The patient was assisted to left lateral position and the catheter stabilized. The patient was encouraged to relax while acclimating to the catheter for approximately 5 minutes. A 30 second baseline pressure was obtained to identify the UES and LES followed by a series of ten wet swallows, using 5mL of room temperature normal saline to assess esophageal motility. At the conclusion of the procedure the catheter was removed. The patient tolerated the procedure well. Patient was informed of possible congestion and minimal nose bleeding following procedure.No heme noted when catheter removed. Milind Haley RN [facility] ---- GRETADIANE Lawson ([id number]) 1955 M Date Time Provider Department 06/09/23 FELIPE ADAMSON4 During your visit today, we recorded the following information about you: Shruthi Monreal RN 06/09/2023 2:52 PM Signed The patient me to reschedule his manometry from 05/26/23. We verbally discussed and reviewed the information about esophageal manometry. All of patient's questions were answered. Patient agreed to be scheduled on 06/22/23 at 10 AM. The patient was reminded about the prep instructions, including holding NSAIDs for 7 days before the test, and directions for the appointment. Patient was informed that he will need to follow up with Dr. Alvarez for test results. Shruthi Monreal RN Allergies As of Date: 06/09/2023 Noted Allergy Reaction ANCEF (CEFAZOLIN SODIUM) 10/21/2010 9 - Itching CITALOPRAM 05/07/2023 16 - Unknown NIASPAN (NIACIN) 08/29/2012 9 - Itching Date Reviewed: 05/07/2023 Reviewed by: Shruthi Monreal, KATLIN - Fully Assessed Reason for Visit: Future Appointment [256] Cmt: Reschedule manometry Prescriptions as of 06/09/2023 - lisinopril-hydrochl orothiazide (PRINZIDE) 10-12.5 mg per tablet Take 1 tablet by mouth once daily. - HYDROCODONE-ACETAMI NOPHEN ES 7.5-750 mg per tablet - TIZANIDINE 4 mg tablet - Meclizine HCl 25 mg cap Take by mouth. - Naproxen Sodium 550 mg tablet Take 550 mg by mouth as needed. - pravastatin (PRAVACHOL) 20 mg ORAL tablet Take 40 mg by mouth daily at bedtime. - sumatriptan (IMITREX) 100 mg ORAL tablet Take 1 tablet by mouth as needed. at onset of headache. May repeat after 2 hours. - zolpidem (AMBIEN) 10 mg ORAL Tab Take 1 tablet by mouth at bedtime as needed (for insomnia.). Problem List As Of Date 06/09/2023 Noted Resolved COMMON MIGRAINE [346.1] 07/09/2005 ADJUSTMENT DISORDER WITH ANXIETY [F43.22] MIXED HYPERLIPIDEMIA [E78.2] HEADACHE [R51] OBESITY NOS [E66.9] CERVICAL DISC DEGEN [M50.30] 08/21/2007 ROTATOR CUFF SYND NOS [M71.9, M67.919] 08/21/2007 Hemifacial spasm [G51.39] 10/21/2010 Blepharospasm [G24.5] 10/21/2010 1.2 Migraine with aura [G43.109] 10/21/2010 Encounter Status:Closed by SH[facility]UT[facility]AL [facility]09[facility] ---- DIANE HERNANDES ([id number]) 1955 M Date Time Provider Department 05/10/23 FELIPE ADAMSON During your visit today, we recorded the following information about you: Shruthi Monreal RN 05/10/2023 2:15 PM Signed I called patient on 05/07/23 and again today attempting to schedule the esophageal manometry ordered by Dr. Alvarez. I left a message with my contact number requesting a return call. Shruthi Monreal RN Allergies As of Date: 05/10/2023 Noted Allergy Reaction ANCEF (CEFAZOLIN SODIUM) 10/21/2010 9 - Itching CITALOPRAM 05/07/2023 16 - Unknown NIASPAN (NIACIN) 08/29/2012 9 - Itching Date Reviewed: 05/07/2023 Reviewed by: Shruthi Monreal, RN - Fully Assessed Reason for Visit: Future Appointment [256] Cmt: Esophageal manometry Prescriptions as of 05/10/2023 - lisinopril-hydrochl orothiazide (PRINZIDE) 10-12.5 mg per tablet Take 1 tablet by mouth once daily. - HYDROCODONE-ACETAMI NOPHEN ES 7.5-750 mg per tablet - TIZANIDINE 4 mg tablet - Meclizine HCl 25 mg cap Take by mouth. - Naproxen Sodium 550 mg tablet Take 550 mg by mouth as needed. - pravastatin (PRAVACHOL) 20 mg ORAL tablet Take 40 mg by mouth daily at bedtime. - sumatriptan (IMITREX) 100 mg ORAL tablet Take 1 tablet by mouth as needed. at onset of headache. May repeat after 2 hours. - zolpidem (AMBIEN) 10 mg ORAL Tab Take 1 tablet by mouth at bedtime as needed (for insomnia.). Problem List As Of Date 05/10/2023 Noted Resolved COMMON MIGRAINE [346.1] 07/09/2005 ADJUSTMENT DISORDER WITH ANXIETY [F43.22] MIXED HYPERLIPIDEMIA [E78.2] HEADACHE [R51] OBESITY NOS [E66.9] CERVICAL DISC DEGEN [M50.30] 08/21/2007 ROTATOR CUFF SYND NOS [M71.9, M67.919] 08/21/2007 Hemifacial spasm [G51.39] 10/21/2010 Blepharospasm [G24.5] 10/21/2010 1.2 Migraine with aura [G43.109] 10/21/2010 Encounter Status:Closed by SHRUTHI MONREAL on 05/10/23 [facility]NP[facility] Telephone (AGGENS4) ---- DIANE HERNANDES ([id number]) 1955 M Date Time Provider Department 05/10/23 FELIPE ADAMSON During your visit today, we recorded the following information about you: Shruthi Monreal RN 05/10/2023 4:24 PM Signed The patient returned my call and we verbally discussed and reviewed the information about esophageal manometry. All of patient's questions were answered. Patient agreed to be scheduled on 05/26/23 at 10:00 AM I sent the patient written information via [employer] about esophageal manometry and the prep instructions, including holding any NSAIDs for 7 days before the test, and directions for the appointment. Patient was informed that he will need to follow up with Dr. Alvarez for test results. Shruthi Monreal RN Allergies As of Date: 05/10/2023 Noted Allergy Reaction ANCEF (CEFAZOLIN SODIUM) 10/21/2010 9 - Itching CITALOPRAM 05/07/2023 16 - Unknown NIASPAN (NIACIN) 08/29/2012 9 - Itching Date Reviewed: 05/07/2023 Reviewed by: Shruthi Monreal RN - Fully Assessed Reason for Visit: Future Appointment [256] Cmt: Esophageal manometry 05/26/23 Prescriptions as of 05/10/2023 - lisinopril-hydrochl orothiazide (PRINZIDE) 10-12.5 mg per tablet Take 1 tablet by mouth once daily. - HYDROCODONE-ACETAMI NOPHEN ES 7.5-750 mg per tablet - TIZANIDINE 4 mg tablet - Meclizine HCl 25 mg cap Take by mouth. - Naproxen Sodium 550 mg tablet Take 550 mg by mouth as needed. - pravastatin (PRAVACHOL) 20 mg ORAL tablet Take 40 mg by mouth daily at bedtime. - sumatriptan (IMITREX) 100 mg ORAL tablet Take 1 tablet by mouth as needed. at onset of headache. May repeat after 2 hours. - zolpidem (AMBIEN) 10 mg ORAL Tab Take 1 tablet by mouth at bedtime as needed (for insomnia.). Problem List As Of Date 05/10/2023 Noted Resolved COMMON MIGRAINE [346.1] 07/09/2005 ADJUSTMENT DISORDER WITH ANXIETY [F43.22] MIXED HYPERLIPIDEMIA [E78.2] HEADACHE [R51] OBESITY NOS [E66.9] CERVICAL DISC DEGEN [M50.30] 08/21/2007 ROTATOR CUFF SYND NOS [M71.9, M67.919] 08/21/2007 Hemifacial spasm [G51.39] 10/21/2010 Blepharospasm [G24.5] 10/21/2010 1.2 Migraine with aura [G43.109] 10/21/2010 Encounter Status:Closed by SHRUTHI MONREAL on 05/10/23 Normal [facility] Basophil percentageOrdered B y: Vern Alvarenga on 12-03-2022 Bilirubin [Mass/Vol] 0.30 mg/dL 0.20-1.00 [facility] Comment on above: For patients on eltr ombopag therapy, use of Dimension Armbrust TBIL is not recommended. Chloride [Moles/Vol] 107 mmol/L 98-107 [facility] Cholesterol [Mass/Vol] 134 mg/dL <200 [facility] Comment on above: <200 mg/dL Desirable 200-240 mg/dL Borderline >240 mg/dL High Risk Glucose [Mass/Vol] 99 mg/dL 74-106 [facility] Potassium [Moles/Vol] 4.1 mmol/L 3.5-5.1 [facility] Protein [Mass/Vol] 7.5 g/dL 6.4-8.2 [facility] Sodium [Moles/Vol] 139 mmol/L 136-145 [facility] Triglyceride [Mass/Vol] 125 mg/dL <199 [facility] Comment on above: The drugs N-Acetylcy steine and Metamizole may falsely depress this assay.Serum Triglycerides Reference Interval Normal <150 mg/dL Borderline high 150 - 199 mg/dL High 200 - 499 mg/dL Very High > or = 500 mg/dL Laboratory - Chemistry and C hemistry - challengeOrdered By: Vern Alvarenga on 12-03-2022 ALP [Catalytic activity/Vol] 109 U/L 45-117 [facility] ALT [Catalytic activity/Vol] 30 U/L 16-61 [facility] CO2 [Moles/Vol] 26.0 mmol/L 21.0-32.0 [facility] Globulin (S) [Mass/Vol] 3.9 g/dL 2.2-4.2 [facility] Urea nitrogen/Creatinine [Mass ratio] 11.8 mg/mg 10-20 [facility] No Panel InformationOrdered By: Vern Alvarenga on 12-03-2022 Estimated GFR (MDRD) Amer 73 mL/min >60 [facility] Comment on above: GFR Calc Estimated GFR (MDRD) Non-Af Amer 60 mL/min >60 [facility] Comment on above: Non- GFR Calc Serum or plasma albumin andres urement (mass/volume)Ordered By: Vern Alvarenga on 12-03-2022 Albumin [Mass/Vol] 3.6 g/dL 3.2-5.0 [facility] Serum or plasma albumin/glob ulin mass ratioOrdered By: Vern Alvarenga on 12-03-2022 Albumin/Globulin [Mass ratio] 0.9 {ratio} 0.9-2.4 [facility] Serum or plasma calcium andres urement (mass/volume)Ordered By: Vern Alvarenga on 12-03-2022 Calcium [Mass/Vol] 9.1 mg/dL 8.5-10.1 [facility] Serum or plasma cholesterol in HDL measurement (mass/volume)Ordered By: Vern Alvarenga on 12-03-2022 Cholesterol in HDL [Mass/Vol] 49 mg/dL >40 [facility] Comment on above: The drugs N-Acetylcy steine and Metamizole may falsely depress this assay. Reference Range HDL <40 mg/dL Low HDL Cholesterol HDL >or= 60 mg/dL High HDL Cholesterol Serum or plasma cholesterol in VLDL measurement (mass/volume)Ordered By: Vern Alvarenga on 12-03-2022 Cholesterol in VLDL [Mass/Vol] 25 mg/dL 5-40 [facility] Serum or plasma creatinine m easurement (mass/volume)Ordered By: Vern Alvarenga on 12-03-2022 Creatinine [Mass/Vol] 1.27 mg/dL 0.70-1.30 [facility] Comment on above: The validity of the calculated GFR & GFRAA in patients over 70 years has not been determined. Clinical correlation is essential. Serum or plasma low density lipoprotein (LDL) cholesterol measurement (mass/volume)Ordered By: Vern Alvarenga on 12-03-2022 Cholesterol in LDL [Mass/Vol] 60 mg/dL 0-130 [facility] Serum or plasma urea nitroge n measurement (mass/volume)Ordered By: Vern Alvarenga on 12-03-2022 Urea nitrogen [Mass/Vol] 15 mg/dL 7-18 [facility] Thin prep Papanicolaou smear with manual screeningOrdered By: Vern Alvarenga on 06-30-2023 Thin prep Papanicolaou smear with manual screening 20 U/L 15-37 [facility] Thin prep Papanicolaou smear with manual screening 6 5-15 [facility] Basophil percentageOrdered B y: Dr. Alvarenga on 03-18-2022 Bilirubin [Mass/Vol] 0.40 mg/dL 0.20-1.00 [facility] Comment on above: For patients on eltr ombopag therapy, use of Dimension Armbrust TBIL is not recommended. Chloride [Moles/Vol] 110 mmol/L 98-107 [facility] Cholesterol [Mass/Vol] 131 mg/dL <200 [facility] Comment on above: <200 mg/dL Desirable 200-240 mg/dL Borderline >240 mg/dL High Risk Glucose [Mass/Vol] 96 mg/dL 74-106 [facility] Potassium [Moles/Vol] 4.1 mmol/L 3.5-5.1 [facility] Protein [Mass/Vol] 7.5 g/dL 6.4-8.2 [facility] Sodium [Moles/Vol] 141 mmol/L 136-145 [facility] Triglyceride [Mass/Vol] 97 mg/dL <199 [facility] Comment on above: The drugs N-Acetylcy steine and Metamizole may falsely depress this assay.Serum Triglycerides Reference Interval Normal <150 mg/dL Borderline high 150 - 199 mg/dL High 200 - 499 mg/dL Very High > or = 500 mg/dL Laboratory - Chemistry and C hemistry - challengeOrdered By: Dr. Alvarenga on 03-18-2022 ALP [Catalytic activity/Vol] 92 U/L 45-117 [facility] ALT [Catalytic activity/Vol] 35 U/L 16-61 [facility] CO2 [Moles/Vol] 25.0 mmol/L 21.0-32.0 [facility] Globulin (S) [Mass/Vol] 3.9 g/dL 2.2-4.2 [facility] Urea nitrogen/Creatinine [Mass ratio] 22.4 mg/mg 10-20 [facility] No Panel InformationOrdered By: Dr. Alvarenga on 03-18-2022 Estimated GFR (MDRD) Amer 89 mL/min >60 [facility] Comment on above: GFR Calc Estimated GFR (MDRD) Non-Af Amer 73 mL/min >60 [facility] Comment on above: Non- GFR Calc Serum or plasma albumin andres urement (mass/volume)Ordered By: Dr. Alvarenga on 03-18-2022 Albumin [Mass/Vol] 3.6 g/dL 3.2-5.0 [facility] Serum or plasma albumin/glob ulin mass ratioOrdered By: Dr. Alvarenga on 03-18-2022 Albumin/Globulin [Mass ratio] 0.9 {ratio} 0.9-2.4 [facility] Serum or plasma calcium andres urement (mass/volume)Ordered By: Dr. Alvarenga on 03-18-2022 Calcium [Mass/Vol] 8.8 mg/dL 8.5-10.1 [facility] Serum or plasma cholesterol in HDL measurement (mass/volume)Ordered By: Dr. Alvarenga on 03-18-2022 Cholesterol in HDL [Mass/Vol] 53 mg/dL >40 [facility] Comment on above: The drugs N-Acetylcy steine and Metamizole may falsely depress this assay. Reference Range HDL <40 mg/dL Low HDL Cholesterol HDL >or= 60 mg/dL High HDL Cholesterol Serum or plasma cholesterol in VLDL measurement (mass/volume)Ordered By: Dr. Alvarenga on 03-18-2022 Cholesterol in VLDL [Mass/Vol] 19 mg/dL 5-40 [facility] Serum or plasma creatinine m easurement (mass/volume)Ordered By: Dr. Alvarenga on 03-18-2022 Creatinine [Mass/Vol] 1.07 mg/dL 0.70-1.30 [facility] Comment on above: The validity of the calculated GFR & GFRAA in patients over 70 years has not been determined. Clinical correlation is essential. Serum or plasma low density lipoprotein (LDL) cholesterol measurement (mass/volume)Ordered By: Dr. Alvarenga on 03-18-2022 Cholesterol in LDL [Mass/Vol] 59 mg/dL 0-130 [facility] Serum or plasma urea nitroge n measurement (mass/volume)Ordered By: Dr. Alvarenga on 03-18-2022 Urea nitrogen [Mass/Vol] 24 mg/dL 7-18 [facility] Thin prep Papanicolaou smear with manual screeningOrdered By: Dr. Alvarenga on 03-18-2022 Thin prep Papanicolaou smear with manual screening 26 U/L 15-37 [facility] Thin prep Papanicolaou smear with manual screening 6 5-15 [facility] Vital Signs Date Time Vital Sign Value Performing Clinician Facility 10-10-2023 09:22-0400 Diastolic Blood Pressure Non-Invasive 90 mm[Hg] DR ARON ALVAREZ MD [facility] 10-10-2023 09:22-0400 Heart rate 82 /min DR ARON ALVAREZ MD [facility] 10-10-2023 09:22-0400 Respiratory rate 14 /min DR ARON ALVAREZ MD [facility] 10-10-2023 09:22-0400 Systolic Blood Pressure Non-Invasive 143 mm[Hg] DR ARON ALVAREZ MD [facility] 10-10-2023 09:17-0400 Diastolic Blood Pressure Non-Invasive 90 mm[Hg] DR ARON ALVAREZ MD [facility] 10-10-2023 09:17-0400 Heart rate 89 /min DR ARON ALVAREZ MD [facility] 10-10-2023 09:17-0400 Respiratory rate 20 /min DR ARON ALVAREZ MD [facility] 10-10-2023 09:17-0400 Systolic Blood Pressure Non-Invasive 144 mm[Hg] DR ARON ALVAREZ MD [facility] 10-10-2023 09:12-0400 Diastolic Blood Pressure Non-Invasive 94 mm[Hg] DR ARON ALVAREZ MD [facility] 10-10-2023 09:12-0400 Heart rate 77 /min DR ARON ALVAREZ MD [facility] 10-10-2023 09:12-0400 Respiratory rate 14 /min DR ARON ALVARZE MD [facility] 10-10-2023 09:12-0400 Systolic Blood Pressure Non-Invasive 139 mm[Hg] DR ARON ALVAREZ MD [facility] 10-10-2023 09:07-0400 Body temperature 97.7 [degF] DR ARON ALVAREZ MD [facility] 10-10-2023 09:05-0400 Respiratory Rate - Anes 17 br/min DR ARON ALVAREZ MD [facility] 10-10-2023 09:00-0400 Respiratory Rate - Anes 13 br/min DR ARON ALVAREZ MD [facility] 10-10-2023 08:55-0400 Respiratory Rate - Anes 12 br/min DR ARON ALVAREZ MD [facility] 10-10-2023 07:49-0400 Body height 177.[address] ARON ALVAREZ MD [facility] 10-10-2023 07:49-0400 Body weight 102.[address] ARON ALVAREZ MD [facility] 10-10-2023 07:49-0400 Body weight 32.36 kg/m2 DR ARON ALVAREZ MD [facility] 10-10-2023 07:42-0400 Body height 177.[address] ARON ALVAREZ MD [facility] 10-10-2023 07:42-0400 Body temperature 97.88 [degF] DR ARON ALVAREZ MD [facility] 10-10-2023 07:42-0400 Body weight 102.[address] ARON ALVAREZ MD [facility] 10-10-2023 07:42-0400 Heart rate 78 /min DR ARON ALVAREZ MD [facility] 03-24-2023 19:50-0400 Heart rate 76 /min [facility] 03-24-2023 19:50-0400 Respiratory rate 16 /min [facility] 03-24-2023 19:50-0400 SaO2% (BldA) [Mass fraction] 98 % [facility] 03-24-2023 16:54-0400 Body height 175.26 cm [facility] 03-24-2023 16:54-0400 Body mass index (BMI) [Ratio] 22.3 kg/m2 [facility] 03-24-2023 16:54-0400 Body temperature 97 [degF] [facility] 03-24-2023 16:54-0400 Body weight 68.49 kg [facility] 03-24-2023 16:54-0400 Diastolic blood pressure 76 mm[Hg] [facility] 03-24-2023 16:54-0400 Systolic blood pressure 152 mm[Hg] [facility] Encounters Encounter Date Encounter Type Care Provider Facility Start: 12-17-2024 End: 12-17-[address] Vern Alvarenga MD Work Phone: -Radiology [facility] Start: 12-17-2024 End: 12-17-[address] Vern Alvarenga MD -Radiology [facility] Work Phone: Start: 12-17-2024 End: 12-17-2024 ambulatory Vern Alvarenga Facility:[facility] Start: 08-08-2024 End: 08-08-[address] Vern Alvarenga MD Work Phone: [facility] Work Phone: Start: 08-08-2024 End: 08-08-[address] Vern Alvarenga MD -[facility] Start: 08-08-2024 End: 08-08-2024 ambulatory Vern Alvarenga Facility:[facility] Start: 02-27-2024 End: 02-27-2024 ambulatory Vern Alvarenga Facility:[facility] Start: 10-10-2023 End: 10-11-[address] ARON ALVAREZ MD Facility:[facility] Start: 10-10-2023 End: 10-10-[address] ARON ALVAREZ MD [facility] Start: 08-26-2023 End: 08-26-2023 ambulatory [facility] Work Phone: Start: 08-26-2023 End: 08-26-2023 Patient encounter procedure [facility] Start: 06-22-2023 End: 06-22-2023 ambulatory VERN ALVARENGA Facility:[facility] Start: 05-10-2023 Telephone encounter Felipe bravo MD Work Phone: [facility] Comment on above: Future Appointment ( Esophageal manometry/) Future Appointment ( Esophageal manometry 05/26/23) Dysphagia, unspecifi ed type (Primary Dx); Spasm of throat muscle; Gastroesophageal reflux disease, unspecified whether esophagitis present Start: 03-24-2023 End: 03-24-2023 Emergency department patient visit [facility]-Emergency Department Work Phone: Start: 12-03-2022 End: 12-03-2022 ambulatory [facility] Work Phone: Start: 12-03-2022 End: 12-03-2022 Patient encounter procedure [facility] Start: 06-26-2022 End: 06-26-2022 ambulatory [facility] Work Phone: Start: 06-26-2022 End: 06-26-2022 Patient encounter procedure [facility] Start: 03-18-2022 End: 03-18-2022 ambulatory [facility] Work Phone: Start: 03-18-2022 End: 03-18-2022 Patient encounter procedure [facility]-Laboratory, [facility] Procedures Date Procedure Procedure Detail Performing Clinician Start: 12-17-2024 X-ray of chest posteroanterior view Dr. Vern Alvarenga MD Work Phone: Start: 06-26-2022 MRI of cervical spine Start: 04-24-2015 Injection of trigger points DR ARON ALVAREZ MD Comment on above: LEFT SHOULDER; ALSO SHOULDER INJECTION LEFT SHOULDER Start: 04-03-2015 Injection of facet joint DR ARON ALVAREZ MD Comment on above: CERVICAL C4,C5,C6 Start: 04-02-2015 Injection of steroid into shoulder joint DR ARON ALVAREZ MD Start: 09-07-2012 Colonoscopy Felipe bravo MD Work Phone: Start: 06-06-[address] ARON ALVAREZ MD Start: 11-16-2006 Lipid 1996 panel - S miguel or Plasma Felipe Adamson MD Work Phone: Start: 06-06-[address] ARON ALVAREZ MD Start: 06-06-1959 [address] ARON ALVAREZ MD H/O: surgery DR ARON WOODARD MD Comment on above: left shoulder inject ions Injection of trigger points DR ARON ALVAREZ MD Comment on above: left shoulder and ne ck Radiofrequency ablat ion of nerve root of cervical spine using fluoroscopic guidance DR ARON ALVAREZ MD Plan of Treatment Date Care Activity Detail Author Start: 03-24-2023 [facility] Start: 02-04-2023 Influenza vaccination Influ[facility] Vaccine (#[facility] Start: 09-07-2022 Colonoscopy Colonoscopy [facility] Start: 09-07-2022 Colorectal Cancer Screening Colorectal Cancer Screening [facility] Start: 06-06-2022 Advance Directive Discussion Advance Directive Discussion [facility] Start: 06-06-2022 Depression Assessment Depression Assessment [facility] Start: 01-21-2020 Pneumococcal Vaccine: 65+ (1 - PCV) Pneumococcal Vaccine: 65+ (1 - PCV) [facility] Start: 09-07-2017 Sigmoidoscopy Sigmoidoscopy [facility] Start: 07-09-2015 Urine microalbumin profile DTaP,Tdap,Td Vaccine (2 - Td or Tdap) [facility] Start: 2015 RSV Vaccine (1 - 1-dose 60+ series) RSV Vaccine (1 - 1-dose 60+ series) [facility] Start: 11-17-2011 Lipid 1996 panel - Serum or Plasma Lipid Screening [facility] Start: 06-30-2010 Prostate Cancer Screening Discussion Prostate Cancer Screening Discussion [facility] Start: 06-30-2008 Diabetes Screening Diabetes Screening [facility] Start: 2005 Shingrix Vaccine (1 of 2) Shingrix Vaccine (1 of 2) [facility] Start: 01-21-2000 Cologuard (FIT-DNA) Cologuard (FIT-DNA) [facility] Start: 01-21-[address] Colonography [facility] Start: 01-21-2000 Fecal Occult Blood Fecal Occult Blood [facility] Start: 1973 Hepatitis C Screening Hepatitis C Screening [facility] Start: 1955 Covid-19 Vaccine (#1) Covid-19 Vaccine (#1) [facility] Start: 1955 Abdominal Aortic Aneurysm Screening Abdominal Aortic Aneurysm Screening [facility] Patient Education ED Laceration, Hand: All Closures [facility] Work Phone: Patient referral [facility] Work Phone: [facility] Immunizations Immunization Date Immunization Notes Care Provider Tony rodriguez 03-24-2023 tetanus toxoid, redu geraldine diphtheria toxoid, and acellular pertussis vaccine, adsorbed [facility] 05-17-2014 influenza virus vaccine, unspecified formulation Felipe Adamson MD Work Phone: [facility] 07-09-2005 tetanus toxoid, redu geraldine diphtheria toxoid, and acellular pertussis vaccine, adsorbed Felipe Adamson MD Work Phone: [facility] Work Phone: Payers Date Payer Category Payer Self-pay [id number] 2021 Unknown [id number] 2021 Unknown MMO MMO MEDICARE SUPPLEMENT [id number] 2021-Present [phone] [address] [place] [address] Indemnity [id number] 2017 Medicare [id number] 2017 Medicare MEDICARE MEDICAR E A AND B [id number] 2017-Present [phone] [address] [address] [place] [address] Medicare [id number] 2015 Unknown [id number] 1955 Unknown [id number] Private Health Insurance [id number] Unknown [id number] Unknown [id number] Unknown [id number] Unknown [id number] Social History Date Type Detail Facility Start: 01-01-2016 End: 03-24-2023 Tobacco smoking status NHIS Unknown if ever smoked [facility] Start: 1955 Sex Assigned At Male [facility] Start: 03-24-2023 Tobacco smoking stat us NHIS Ex-smoker [facility] End: 07-09-1993 History of tobacco use Current smoker [facility] End: 07-09-1993 History of tobacco use Cigarette Smoker [facility] Start: 05-07-2023 Alcohol intake Current non-dr shoe maker of alcohol (finding) [facility] Start: 05-07-2023 History of Social function [facility] Start: 05-07-2023 Tobacco use panel [facility] Start: 1955 Sex Assigned At Not on file [facility] Sex Assigned At Sex [facility] Start: 08-18-2024 Sex Male (finding) [facility] Functional Status Date Assessment Result Facility 10-10-2023 Functional Status Awake [facility] 10-10-2023 Functional Status Maintained [facility] Mental Status Date Assessment Result Facility 10-10-2023 Mental Status Orientation Oriented x 4 [facility] 10-10-2023 [facility] Clinical Notes 05-10-2023 to 12-18-2024 Telephone Encounter - Shruthi Monreal RN - 05/10/2023 4:12 PM ESTTelephone Encounter - Shruthi Monreal RN - 05/10/2023 2:14 PM EST Note Date & Type Note Facility 12-18-2024 Radiology Diagnostic study note [facility] Imaging Services [address] [place], [place] [address] Ribs Uni Min 3V w/PA Chest MR#: [id number] Acct: [id number] Name: DIANE HERNANDES Rep #: [id number] : 1955 M 69 From: Micki Curtis MD PCP: Dr. Vern Alvarenga MD Status: REG C LI Study:Ribs Uni Min 3V w/PA Chest Date of Exam : 12/17/24 Exam# [id number] Ordering Dr: Vern Alvarenga MD EXAM: XR Right Ribs and AP Chest, 3 or More Views CLINICAL INDICATION: PAIN TECHNIQUE: Frontal and oblique views of the right ribs and frontal view of the chest. COMPARISON: No relevant prior studies available. FINDINGS: LUNGS AND PLEURAL SPACES: Unremarkable. No consolidation. No pneumothorax. HEART: Unremarkable. No cardiomegaly. MEDIASTINUM: Unremarkable. Normal mediastinal contour. BONES/JOINTS: Unremarkable. No displaced rib fractures. RAD/Ribs Uni Min 3V w/PA Chest IMPRESSION: No displaced rib fractures. Reading [facility] CC: Dr. Vern Alvarenga MD ~ [employer] [facility] Worker: Signed [facility] 10-10-2023 Hospital Discharge instructions Patient Education 10/10/2023 09:19:05 Monitored Anesthesia Care, Care After Monitored Anesthesia Care, Care After These instructions provide you with information about caring for yourself after your procedure. Your health care provider may also give you more specific instructions. Your treatment has been planned according to current medical practices, but problems sometimes occur. Call your health care provider if you have any problems or questions after your procedure. What can I expect after the procedure? After your procedure, you may: Feel sleepy for several hours. Feel clumsy and have poor balance for several hours. Feel forgetful about what happened after the procedure. Have poor judgment for several hours. Feel nauseous or vomit. Have a sore throat if you had a breathing tube during the procedure. Follow these instructions at home: For at least 24 hours after the procedure: Have a responsible adult stay with you. It is important to have someone help care for you until you are awake and alert. Rest as needed. Do not: ?Participate in activities in which you could fall or become injured. ?Drive. ?Use heavy machinery. ?Drink alcohol. ?Take sleeping pills or medicines that cause drowsiness. ?Make important decisions or sign legal documents. ?Take care of children on your own. Eating and drinking Follow the diet that is recommended by your health care provider. If you vomit, drink water, juice, or soup when you can drink without vomiting. Make sure you have little or no nausea before eating solid foods. General instructions Take fvyf-nic-hxejvgr and prescription medicines only as told by your health care provider. If you have sleep apnea, surgery and certain medicines can increase your risk for breathing problems. Follow instructions from your health care provider about wearing your sleep device: ?Anytime you are sleeping, including during daytime naps. ?While taking prescription pain medicines, sleeping medicines, or medicines that make you drowsy. If you smoke, do not smoke without supervision. Keep all follow-up visits as told by your health care provider. This is important. Contact a health care provider if: You keep feeling nauseous or you keep vomiting. You feel light-headed. You develop a rash. You have a fever. Get help right away if: You have trouble breathing. Summary For several hours after your procedure, you may feel sleepy and have poor judgment. Have a responsible adult stay with you for at least 24 hours or until you are awake and alert. This information is not intended to replace advice given to you by your health care provider. Make sure you discuss any questions you have with your health care provider. Document Released: 09/12/2016 Document Revised: 08/21/2018 Document Reviewed: 09/12/2016 [employer] Patient Education 2020 [employer]. 10/10/2023 09:18:47 9 - AO Minor Esophagogastroduodenoscopy (08/17) (CUSTOM) Esophagogastroduodenoscopy This is an endoscopic procedure (a procedure that uses a device like a flexible telescope) that allows your caregiver to view the upper stomach and small bowel. This test allows your caregiver to look at the esophagus. The esophagus carries food from your mouth to your stomach. They can also look at your duodenum. This is the first part of the small intestine that attaches to the stomach. This test is used to detect problems in the bowel such as ulcers and inflammation. MEANING OF TEST Your caregiver will go over the test results with you and discuss the importance and meaning of your results, as well as treatment options and the need for additional tests if necessary. OBTAINING THE TEST RESULTS Your caregiver s office will call you with the results of the test. POST SEDATION INSTRUCTIONS Rest at home today. Since your coordination may be impaired, be cautious on stairways, do not drive any vehicle or operate any heavy machinery, or use any sharp instruments for the remainder of the day. Do not drink any alcoholic beverages or make any major decisions for 24 hours. POST PROCEDURE INSTRUCTIONS Progress slowly with full liquids then resume previous diet and medications. Belching or passing of gas is to be expected. Notify the physician if you have severe chest pain, fever, or if difficulty when swallowing persists. 08/14/13 Custom Follow Up Care 09/27/2023 08:15:01 With:ARON ALVAREZ Address: [facility] [address] [place] [address]- [phone] Business (1) When: only if needed Comments:No specimens were taken today. [facility] 10-10-2023 Note Discharge Instructions Thank you for allowing [facility] to assist you with your healthcare needs. The following is important discharge information regarding your hospital visit. What to do next Follow Up Appointments Follow Up with ARON ALVAREZ When Only if needed Why: No specimens were taken today. Where: [facility] [address] [place] [address]- [phone] Business (1) The Following Activity and Diet Have Been Ordered for You Do NOT drive for 24 hours. Allergies Ancef (becomes red and itchy) Niaspan ER (becomes red and itchy) Medications Please ask your primary doctor or pharmacist before taking any other medication not listed, including over the counter drugs, herbal medications, vitamins and or supplements as they may interact with your home medications. What How Much When Instructions Last Dose Unchanged acetaminophen-OXYcodone (Percocet 325/ 5 oral tablet) 5-325 by mouth Every 6 hours Unchanged ALPRAZolam (Xanax 1 mg oral tablet) 1 tab(s) by mouth Three (3) times a day Unchanged hydrochlorothiazide-lisinopril (hydrochlorothiazide-lisinopril 12.5 mg-10 mg oral tablet) 10-12.5mg by mouth Every day Unchanged meclizine (meclizine 25 mg oral tablet) 25 Milligram by mouth Three (3) times a day Unchanged naproxen (naproxen 500 mg oral tablet) 500 Milligram by mouth Twice daily with meals as needed for for pain Unchanged oxymorphone (oxymorphone 10 mg oral tablet) 1 tab(s) by mouth Every 4 hours Unchanged pravastatin (pravastatin 80 mg oral tablet) 80 Milligram by mouth Every day Unchanged QUEtiapine (SEROquel 25 mg oral tablet) 200 Milligram by mouth Once a day Unchanged rivaroxaban (Xarelto 20 mg oral tablet) 1 tab(s) by mouth Daily at bedtime Unchanged SUMAtriptan (Imitrex 100 mg oral tablet) 100 Milligram by mouth Every day as needed for for migraine headache Unchanged tiZANidine (Zanaflex 4 mg oral tablet) 4 Milligram by mouth Two (2) times a day Unchanged topiramate (Topamax 50 mg oral tablet) 1 tab(s) by mouth Daily at bedtime Unchanged zolpidem (Ambien 10 mg oral tablet) 12.5 by mouth Daily at bedtime Please take this list to your next doctor s visit. Bring all medications you take, including over the counter medications, herbals and other supplements with you to your doctor s visit. Patients and families are reminded to discard old lists and to update any records with all medication providers or retail pharmacies. Medication Leaflets onabotulinumtoxinA (Botox) (ON a BOT ue LYE num TOX in A) Botox, Botox Cosmetic What is the most important information I should know about onabotulinumtoxinA (Botox)? The botulinum toxin contained in this medicine can spread to other body areas beyond where it was injected. This can cause serious life-threatening side effects. Call your doctor at once if you have a hoarse voice, drooping eyelids, vision problems, severe eye irritation, severe muscle weakness, loss of bladder control, or trouble breathing, talking, or swallowing. What is onabotulinumtoxinA (Botox)? Botox is used in adults to treat cervical dystonia (abnormal head position and neck pain). Botox is also used to treat muscle spasms and stiffness (spasticity) of the arms, hands, legs, and feet in adults and children at least 2 years old. This medicine will not treat spasticity caused by cerebral palsy. Botox is also used to treat certain eye muscle conditions caused by nerve disorders in adults and children who are at least 12 years old. This includes uncontrolled blinking or spasm of the eyelids, and a condition in which the eyes do not point in the same direction. Botox is also used in adults to treat overactive bladder and incontinence (urine leakage) that has not been helped by other medication. Botox may be used to treat incontinence caused by nerve disorders such as spinal cord injury or multiple sclerosis. Botox is also used to treat overactive bladder caused by a neurologic disorder (such as multiple sclerosis or spinal cord injury) in children at least 5 years old when other medicines cannot be used or have not worked. Botox is also used in adults to prevent chronic migraine headaches that occur more than 15 days per month and last 4 hours or longer. Botox should not be used to treat a common tension headache. Botox is also used to treat severe underarm sweating (hyperhidrosis) in adults. Botox Cosmetic is used to temporarily lessen the appearance of facial wrinkles in adults. Botox may also be used for purposes not listed in this medication guide. What should I discuss with my healthcare provider before I receive onabotulinumtoxinA (Botox)? You should not be treated with Botox if you are allergic to botulinum toxin, or if you have: an infection in the area where the medicine will be injected; or (for overactive bladder and incontinence) if you have a current bladder infection or if you are unable to urinate and you do not routinely use a catheter. Tell your doctor if you have ever had: other botulinum toxin injections such as Dysport, Xeomin, or Myobloc (especially in the last 4 months); amyotrophic lateral sclerosis (ALS, or 'Lulu Gehrig's disease'); myasthenia gravis; Lambert-Eaton syndrome; a side effect after prior use of botulinum toxin; a breathing disorder such as asthma or emphysema; problems with swallowing; facial muscle weakness (droopy eyelids, weak forehead, trouble raising your eyebrows); a change in the normal appearance of your face; bleeding problems; or surgery (especially on your face). Botox is made from donated human plasma and may contain viruses or other infectious agents. Donated plasma is tested and treated to reduce the risk of contamination, but there is still a small possibility it could transmit disease. Ask your doctor about your individual risk. Tell your doctor if you are or . How is onabotulinumtoxinA (Botox) given? Botox injections should be given only by a trained medical professional, even when used for cosmetic purposes. This medicine is injected into a muscle by a healthcare provider. Botox injections should be spaced at least 3 months apart. Botox injections may be given into more than one area at a time, depending on the condition being treated. While receiving injections for eye muscle conditions, you may need to use eye drops, ointment, a special contact lens or other device to protect the surface of your eye. Follow your doctor's instructions. If you are being treated for excessive sweating, shave your underarms about 24 hours before your injection. Do not apply antiperspirant or deodorant for 24 hours before or after you receive the injection. Avoid exercise and hot foods or beverages within 30 minutes before the injection. It may take up to 2 weeks after injection before neck muscle spasm symptoms begin to improve. You may notice the greatest improvement after 6 weeks. It may take only 1 to 3 days after injection before eye muscle spasm symptoms begin to improve. You may notice the greatest improvement after 2 to 6 weeks. The effects of a Botox injection are temporary. Your symptoms may return completely within 3 months. After repeat injections, it may take less and less time before your symptoms return, especially if your body develops antibodies to the botulinum toxin. Do not seek botulinum toxin injections from more than one medical professional at a time. If you switch healthcare providers, tell your new provider how long it has been since your last botulinum toxin injection. Using this medication more often than prescribed will not make it more effective and may result in serious side effects. What happens if I miss a dose? Since botulinum toxin has a temporary effect and is given at widely spaced intervals, missing a dose is not likely to be harmful. What happens if I overdose? Seek emergency medical attention or call the Poison Help line at . Overdose symptoms may not appear right away, but can include muscle weakness, trouble swallowing, and weak or shallow breathing. What should I avoid after receiving onabotulinumtoxinA (Botox)? Botox may impair your vision or depth perception. Avoid driving or hazardous activity until you know how this medicine will affect you. Avoid going back to your normal physical activities too quickly after receiving an injection. What are the possible side effects of onabotulinumtoxinA (Botox)? Get emergency medical help if you have signs of an allergic reaction: hives, itching; wheezing, difficult breathing; feeling like you might pass out; swelling of your face, lips, tongue, or throat. The botulinum toxin contained in Botox can spread to other body areas beyond where it was injected. This has caused serious life-threatening side effects in some people receiving botulinum toxin injections, even for cosmetic purposes. Call your doctor at once if you have any of these side effects (up to several hours or several weeks after an injection): unusual or severe muscle weakness (especially in a body area that was not injected with the medication); loss of bladder control; hoarse voice, trouble talking or swallowing; drooping eyelids or eyebrows; vision changes, eye pain, severely dry or irritated eyes (your eyes may also be more sensitive to light); chest pain or pressure, pain spreading to your jaw or shoulder, irregular heartbeats; pain or burning when you urinate, trouble emptying your bladder; sore throat, cough, chest tightness, shortness of breath; or eyelid swelling, crusting or drainage from your eyes, problems with vision. Common side effects may include: painful or difficult urination; headache, neck pain, back pain, pain in your arms or legs; cold symptoms such as stuffy nose, sneezing, sore throat; trouble swallowing; fever, chills, body aches, flu symptoms; increased sweating in areas other than the underarms; or bruising, bleeding, pain, redness, or swelling where the injection was given. This is not a complete list of side effects and others may occur. Call your doctor for medical advice about side effects. You may report side effects to FDA at 9-375-VZO-1889. What other drugs will affect onabotulinumtoxinA (Botox)? Tell your doctor about all your other medicines, especially: a muscle relaxer; cold or allergy medicine; sleep medicine; an injectable antibiotic; a blood thinner--warfarin, Coumadin, Jantoven; or medicine used to prevent blood clots--alteplase, clopidogrel, dipyridamole, ticlopidine, and others. This list is not complete. Other drugs may affect Botox, including prescription and dkwk-wzt-kknrbsn medicines, vitamins, and herbal products. Not all possible drug interactions are listed here. Where can I get more information? Your doctor or pharmacist can provide more information about Botox (onabotulinumtoxinA). Remember, keep this and all other medicines out of the reach of children, never share your medicines with others, and use this medication only for the indication prescribed. Every effort has been made to ensure that the information provided by [employer]. ('[employer]') is accurate, up-to-date, and complete, but no guarantee is made to that effect. Drug information contained herein may be time sensitive. [employer] information has been compiled for use by healthcare practitioners and consumers in the [place] and therefore [employer] does not warrant that uses outside of the [place] are appropriate, unless specifically indicated otherwise. The [employer] drug information does not endorse drugs, diagnose patients or recommend therapy. The [employer] drug information is an informational resource designed to assist licensed healthcare practitioners in caring for their patients and/or to serve consumers viewing this service as a supplement to, and not a substitute for, the expertise, skill, knowledge and judgment of healthcare practitioners. The absence of a warning for a given drug or drug combination in no way should be construed to indicate that the drug or drug combination is safe, effective or appropriate for any given patient. [employer] does not assume any responsibility for any aspect of healthcare administered with the aid of information [employer] provides. The information contained herein is not intended to cover all possible uses, directions, precautions, warnings, drug interactions, allergic reactions, or adverse effects. If you have questions about the drugs you are taking, check with your doctor, nurse or pharmacist. Copyright 3563-1452 [employer]. Version: 03.06. Revision Date: 03/19/2022. Education Materials Monitored Anesthesia Care, Care After These instructions provide you with information about caring for yourself after your procedure. Your health care provider may also give you more specific instructions. Your treatment has been planned according to current medical practices, but problems sometimes occur. Call your health care provider if you have any problems or questions after your procedure. What can I expect after the procedure? After your procedure, you may: Feel sleepy for several hours. Feel clumsy and have poor balance for several hours. Feel forgetful about what happened after the procedure. Have poor judgment for several hours. Feel nauseous or vomit. Have a sore throat if you had a breathing tube during the procedure. Follow these instructions at home: For at least 24 hours after the procedure: Have a responsible adult stay with you. It is important to have someone help care for you until you are awake and alert. Rest as needed. Do not: ? Participate in activities in which you could fall or become injured. ? Drive. ? Use heavy machinery. ? Drink alcohol. ? Take sleeping pills or medicines that cause drowsiness. ? Make important decisions or sign legal documents. ? Take care of children on your own. Eating and drinking Follow the diet that is recommended by your health care provider. If you vomit, drink water, juice, or soup when you can drink without vomiting. Make sure you have little or no nausea before eating solid foods. General instructions Take ysxl-zjv-ntjqvyu and prescription medicines only as told by your health care provider. If you have sleep apnea, surgery and certain medicines can increase your risk for breathing problems. Follow instructions from your health care provider about wearing your sleep device: ? Anytime you are sleeping, including during daytime naps. ? While taking prescription pain medicines, sleeping medicines, or medicines that make you drowsy. If you smoke, do not smoke without supervision. Keep all follow-up visits as told by your health care provider. This is important. Contact a health care provider if: You keep feeling nauseous or you keep vomiting. You feel light-headed. You develop a rash. You have a fever. Get help right away if: You have trouble breathing. Summary For several hours after your procedure, you may feel sleepy and have poor judgment. Have a responsible adult stay with you for at least 24 hours or until you are awake and alert. This information is not intended to replace advice given to you by your health care provider. Make sure you discuss any questions you have with your health care provider. Document Released: 09/12/2016 Document Revised: 08/21/2018 Document Reviewed: 09/12/2016 [employer] Patient Education 2020 [employer] Esophagogastroduodenoscopy This is an endoscopic procedure (a procedure that uses a device like a flexible telescope) that allows your caregiver to view the upper stomach and small bowel. This test allows your caregiver to look at the esophagus. The esophagus carries food from your mouth to your stomach. They can also look at your duodenum. This is the first part of the small intestine that attaches to the stomach. This test is used to detect problems in the bowel such as ulcers and inflammation. MEANING OF TEST Your caregiver will go over the test results with you and discuss the importance and meaning of your results, as well as treatment options and the need for additional tests if necessary. OBTAINING THE TEST RESULTS Your caregiver s office will call you with the results of the test. POST SEDATION INSTRUCTIONS Rest at home today. Since your coordination may be impaired, be cautious on stairways, do not drive any vehicle or operate any heavy machinery, or use any sharp instruments for the remainder of the day. Do not drink any alcoholic beverages or make any major decisions for 24 hours. POST PROCEDURE INSTRUCTIONS Progress slowly with full liquids then resume previous diet and medications. Belching or passing of gas is to be expected. Notify the physician if you have severe chest pain, fever, or if difficulty when swallowing persists. 08/14/13 Custom Additional Information VACCINATE! IT SAVES LIVES! Members of the community who have not yet received the COVID-19 vaccine and would like to receive it can visit one of [facility] vaccine clinics. There are many vaccine clinic locations within the [facility]. For locations and available times, please visit [email or web address] It is important to note that some COVID mobile vaccine clinics are held outdoors and may be canceled in rainy or stormy conditions. To learn more about pediatric vaccinations (ages 5-11), we invite you to visit the [facility] webpage. [email or web address]/[email or web address]-Lqsjg-Bbwbeswhwtc-Frequently-[email or web address] -Questions.html To learn more about the COVID-19 vaccine, we invite you to visit the CDC website for a list of frequently asked questions.https://www.cdc.gov/coronavi marty/2019-ncov/vaccines/faq.html [facility] Patient Portal Access Instructions: Stay connected with your healthcare team and access your personal medical information anytime with the [facility] Patient Portal. Please follow the directions below to create your [facility] account: 1.Access the email account you provided upon registration to the hospital/physician office.2.Look for an invitation email from [facility].3.Open the email and access the invitation link: Accept Invitation to [facility].4.Fill in the required copeland to create your account. To access your account, visit [employer]. Click the blue button labeled Access Patient Portal and then log in with the username and password that you created in the steps above. You will be able to view your test results, lab results, a summary of your visits, upcoming appointments and more. There is also a convenient messaging option where you can send secure messages to your provider. In addition, you will have the ability to download any documents or summaries to your computer and/or send the information securely to a physician. Remember that your healthcare information is confidential, so carefully consider who you will allow to register on the [facility] Patient Portal for access to your information. You can also access [facility] on the [facility]tha. Simply click on Patient Portal and then log into your account. If you would like to receive a full copy of your medical records, please contact the [facility] Medical Records Department by calling [phone], Tuesday through Tuesday between 8 a.m. and 4:30 p.m. HOW TO SAFELY DISPOSE OF PRESCRIPTION MEDICATIONS Please use one of the following methods to safely dispose of your unused medications. 1.Use a drug disposal kit: the drug disposal pouch allows you to safely discard your old and unused drugs. Ask your nurse to give you one when you are discharged.2.Visit a local take-back location: Many local pharmacies and police departments have programs that collect old and unwanted prescription drugs. Call your local pharmacy or go to http://Breadcrumbtracking.PowerFile/7P0Gn2c to find one close to you.3.Make use of household items: Use cat litter or old coffee grounds to dispose medications if other options are not available. Mix your drugs with these household products, seal them in an airtight container and throw it into the garbage. Call [facility]: [phone] to be sure your drugs can be disposed of in this way. Some medicines may require a different approach.4.Never flush your medications down the toilet. IF YOU HAVE BEEN PRESCRIBED AN OPIOID FOR PAIN If you have been prescribed an opioid (such as hydrocodone, oxycodone or morphine), it is critical to understand the possible side effects and risks of opioid pain medications. Even when taken as directed, opioids can have several side effects including: Tolerance, meaning you might need to take more of a medication for the same pain relief. Nausea, vomiting and/or constipation. Sleepiness, dizziness, dry mouth, confusion, depression or itching. Physical dependence, meaning you have withdrawal symptoms when a medication is stopped, can develop within a few days. KNOW YOUR RESPONSIBILITIES It is important to know exactly how much and how often to take the opioid pain medications you are prescribed. Never take opioids in higher amounts or more often than prescribed. Do not combine opioids with alcohol or other drugs that cause drowsiness, such as benzodiazepines, also known as benzos, including diazepam and alprazolam, muscle relaxants or sleep aids. Never sell or share prescription opioids. This is illegal. Store opioids in a secure place and out of reach of others (including children, family, friends and visitors). The last page of this document has been signed and retained as a CHART COPY. Signatures Patient Education Materials Monitored Anesthesia Care, Care After 9 - AO Minor Esophagogastroduodenoscopy (08/17) (CUSTOM) Medication Leaflets Botox 100 units injection My discharge plan and instructions have been reviewed and explained to me and I,DIANE HERNANDES understand my current condition and have read and understand these discharge instructions. I have received a written copy of the plan/instructions. If I have questions, I am aware that I should contact my doctor. 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 The endoscope was passed direct visualization down into the esophagus. Stomach was easily insufflated. Duodenum was unremarkable. The endoscope was withdrawn back into the stomach. Retroflexion was performed and there was a small hiatal hernia noted. The endoscope was withdrawn back up to the GE junction. Using a 25-gauge sclerotherapy needle, 20 units of Botox was injected into each quadrant of the esophagus. The final 20 units was injected into the distal esophagus. The endoscope was withdrawn and the patient tolerated the procedure well. Post-Procedure Exam EGD with Botox injection successful Complications None Total Time Approximately 20 minutes Follow Up/Recommendation Reevaluate the patient swallowing after the injection. Digitally Signed by ARON ALVAREZ MD on 10/10/2023 09:12 AM [facility] 10-10-2023 Anesthesiology Consult note Patient: DIANE HERNANDES Age: 68 years Sex: Male : 1955 Associated Diagnoses: None Author: DREW MARRERO APRN-SILVIA Preoperative Information Anesthesia history Patient's history: negative. Family's history: negative. Health Status Allergies: Allergic Reactions (Selected) Moderate Ancef- Becomes red and itchy. Niaspan ER- Becomes red and itchy., Allergies (2) ActiveReaction Ancefbecomes red and itchy Niaspan ERbecomes red and itchy Current medications: (Selected) Inpatient Medications Ordered Botox: 100 unit(s), 1 vial(s), Other, AsDirected Documented Medications Documented Ambien 10 mg oral tablet: 12.5, Oral, qHS Imitrex 100 mg oral tablet: 100 mg, Oral, Daily, 9 tab(s), PRN: for migraine headache Percocet 325/5 oral tablet: 5-325, Oral, q6hr SEROquel 25 mg oral tablet: 200 mg, Oral, qDay Topamax 50 mg oral tablet: 50 mg, 1 tab(s), Oral, qHS Xanax 1 mg oral tablet: 1 mg, 1 tab(s), Oral, TID Xarelto 20 mg oral tablet: 20 mg, 1 tab(s), Oral, qHS, 30 tab(s) Zanaflex 4 mg oral tablet: 4 mg, Oral, BID hydrochlorothiazide-lisinopril 12.5 mg-10 mg oral tablet: 10-12.5mg, Oral, Daily, 30 tab(s) meclizine 25 mg oral tablet: 25 mg, Oral, TID naproxen 500 mg oral tablet: 500 mg, Oral, BIDM, 20 tab(s), PRN: for pain oxymorphone 10 mg oral tablet: 10 mg, 1 tab(s), Oral, q4h pravastatin 80 mg oral tablet: 80 mg, Oral, Daily, Medications (1) Active Scheduled: (1) botulinum toxin type A 100 units 100 unit(s) 1 vial(s), Other, AsDirected Continuous: (0) PRN: (0) Problem list: Medical Sleep apnea / ICD-9-CM 780.57 / Confirmed, Active Problems (1) Sleep apnea Histories Past Medical History: Resolved Shoulder pain ([id number]) : Resolved. Comments: 12/05/2014 EDT 7:22 Kandace Pandey RN left DDD (degenerative disc disease), lumbar ([id number]) : Resolved. DDD (degenerative disc disease), cervical ([id number]) : Resolved. Osteoarthropathy ([id number]): Resolved. MPDS - Myofacial pain dysfunction syndrome ([id number]): Resolved. Facial twitching ([id number]) : Resolved. Family History: Heart disease Father Sister Brother Hyperchloremia Brother Cancer Mother Procedure history: Injection of trigger points ([id number]) on 04/24/2015 at 60 Years. Comments: 04/24/2015 10:58 KATLIN SHELTON LEFT SHOULDER; ALSO SHOULDER INJECTION LEFT SHOULDER Injection of facet joint ([id number]) on 04/03/2015 at 60 Years. Comments: 04/03/2015 12:14 KATLIN Panedy CERVICAL C4,C5,C6 Injection of steroid into shoulder joint ([id number]) on 04/02/2015 at 60 Years. Arthroscopic knee operation ([id number]) in 2010 at 56 Years. Vasectomy ([id number]) in 1986 at 32 Years. Tonsillectomy and adenoidectomy ([id number]) in 1960 at 5 Years. Radiofrequency ablation of nerve root of cervical spine using fluoroscopic guidance ([id number]). TPI - Trigger point injection ([id number]). Comments: 12/05/2014 7:24 EDT - KATLIN Zhu left shoulder and neck Past surgical history of ([id number]). Comments: 12/05/2014 7:48 EDT - KATLIN Zhu left shoulder injections Social History: Social & Psychosocial Habits No Data Available Physical Examination Vital Signs 10/10/2023 7:42 EDT Temperature Temporal Artery 36.6 DegC Apical Heart Rate 78 bpm Respiratory Rate 16 br/min Systolic Blood Pressure Non-Invasive 155 mmHg HI Diastolic Blood Pressure Non-Invasive 87 mmHg Vital Signs(last 24 hrs) Last Charted SBPH 155mmHg (OCTOBER 09 07:42) DBP87 mmHg (OCTOBER 09 07:42) BMI32.36 (OCTOBER 09 07:49) Measurements from flowsheet : Measurements 10/10/2023 7:49 EDT Height 177.8 cm Admission Weight 102.3 kg Mina Body Weight 73.00 kg BSA Admission 2.2 Body Mass Index 32.36 kg/m2 10/10/2023 7:42 EDT Height 177.8 cm Admission Weight 102.3 kg Mina Body Weight 73.00 kg Admission Body Mass Index 32.36 m2 Pain assessment: Pain Assessment 10/10/2023 7:42 EDT Primary Pain Location Lower back Primary Pain Laterality Right Primary Pain Intensity 6 Pain Scale Type 0-10 Pain scale . General: Alert and oriented. Airway: Normal temporomandibular joint mobility. Mallampati classification: II (soft palate, fauces, uvula visible). Dentition Evaluation: Denies loose/chipped teeth. Respiratory: Lungs are clear to auscultation, Respirations are non-labored. Cardiovascular: Normal rate, Regular rhythm. Neurologic: Alert, Oriented. Review / Management Results review: No qualifying data available , Lab results 10/10/2023 7:49 EDT Designated Person #1 We May Share MARCO SCHMITZ Designated Person #1 Relationship Spouse Height 177.8 cm Admission Weight 102.3 kg Mina Body Weight 73.00 kg BSA Admission 2.2 Body Mass Index 32.36 kg/m2 Status N/A Sensory Deficits Hearing deficit, left ear Infectious Disease Symptoms Patient states no symptoms Infectious Disease Recent Exposure No Alcohol and Drug Use No Employee of Institutional Living No Health Care Employee No History of Exposure to TB No History of Positive Chest X-Ray for TB No History of Positive TB Skin Test No Homeless No Known Immunosuppression No Recent Immigrant No Resident of Institutional Living No Bloody Sputum No Fatigue No Fever No Loss of Appetite No Night Sweats No Persistent Cough > 3 Weeks No Weight Loss No Barriers to Learning None evident Teaching Method Explanation, Printed materials Preferred Spoken Language Hebrew Preferred Written Language Hebrew Information Given by Patient Patient's Current Physicians Patient's Current Physicians Discharge To, Anticipated Home independently Prev Test Positive/Diagnosis w/COVID-19 No Current Quarantine/Isolated any Illness No Any Contact with Sick Animals/Birds No Traveled Anywhere in Last 30 Days Yes Travel Where Within [facility] State(s) [place] N/A Personal Devices, Patient Valuables None Admission Note-Nursing Procedure/Therapy Intake 10/10/2023 7:42 EDT Height 177.8 cm Admission Weight 102.3 kg Mina Body Weight 73.00 kg Admission Body Mass Index 32.36 m2 Temperature Temporal Artery 36.6 DegC Apical Heart Rate 78 bpm Respiratory Rate 16 br/min Systolic Blood Pressure Non-Invasive 155 mmHg HI Diastolic Blood Pressure Non-Invasive 87 mmHg Primary Pain Location Lower back Primary Pain Laterality Right Primary Pain Intensity 6 Pain Scale Type 0-10 Pain scale Heart Sounds ICU S1S2 Heart Rhythm Regular Respirations Unlabored All Lobes Breath Sounds Clear, Diminished Oxygen Saturation 97 % Abdomen Description Non-distended, Rounded Bowel Sounds All Quadrants Hyperactive Skin Temperature Warm Skin Description [place], Dry Skin Integrity Intact Mucous Membrane Color [place] Skin Moisture General Dry Characteristics of Speech Clear Level of Consciousness Alert Strength All Extremities Strong Affect/Behavior Appropriate, Calm, Cooperative Orientation Oriented x 4 Patient Identified Identification band, Verbal Arrival Mode Ambulatory Raissa Motor (2) Moves 4 extremities voluntarily or on command Raissa Respirations (2) Spontaneous respiration without support, RR > 10 [place]issa Blood Pressure (2) BP 20% above or below preanesthetic level Raissa Pulse (2) Pulse 20% above or below preanesthetic level Raissa Oxygen Saturation (2) 94% or more Raissa Level of Consciousness (2) Fully awake Raissa III Score 12 Standard Safety ID band on, Allergy Band on, Call device within reach, Bed in low position 10/10/2023 7:39 EDT Urinary Elimination Voiding, no difficulties Allergies Yes Anesthesia Extension Set Applied Yes Flight Operations Manager On Yes Consent Form Signed Yes Patient Dressed In Hospital gown Pre-op Preparation Jewelry removed History & Physical Update On Chart Yes History & Physical On Chart Yes Obstructive Sleep Apnea Assess Completed Yes Belongings At Bedside Transferred with patient Personal Home Medications Received No home medications were brought in NPO Status Maintained Allergy Band on and Verified Yes Blood Band on and Verified No Patient ID Band on and Verified Yes Implants Verified Yes Pacemaker/AICD Verified Yes Site Verified by Patient/Family Yes Anesthesia Consent Signed Yes Blood Consent Signed No Last Fluid Intake 10/09/2023 23:45 Last Food Intake 10/09/2023 20:00 Last Void 10/10/2023 6:00 . Assessment and Plan [place] [employer] (ASA) physical status classification: Class III. Anesthetic Preoperative Plan Anesthetic technique: MAC. Postoperative pain management: Per surgeon. Risks discussed: nausea, vomiting, sore throat, dental injury, hypotension, allergic reaction, serious complications. Informed consent: signed by patient. Digitally Signed by DREW MARRERO on 10/10/2023 07:54 AM [facility] 05-10-2023 Miscellaneous Notes The patient returned my call and we verbally discussed and reviewed the information about esophageal manometry. All of patient's questions were answered. Patient agreed to be scheduled on 05/26/23 at 10:00 AM I sent the patient written information via [employer] about esophageal manometry and the prep instructions, including holding any NSAIDs for 7 days before the test, and directions for the appointment. Patient was informed that he will need to follow up with Dr. Alvarez for test results. Shruthi Monreal RN documented in this encounter [facility] 05-10-2023 Miscellaneous Notes I called patient on 05/07/23 and again today attempting to schedule the esophageal manometry ordered by Dr. Alvarez. I left a message with my contact number requesting a return call. Shruthi Monreal RN documented in this encounter [facility] Evaluation + Plan note No data available for this section [facility] Evaluation note No assessment information availa [facility] Work Phone: Evaluation note Diagnosis Dysphagia, unspecified type- Primary Spasm of throat muscle Achalasia and cardiospasm Gastroesophageal reflux disease, unspecified whether esophagitis present documented in this encounter [facility] (narrative)No reason for referral information availableWUniversity Hospitals [facility] Work Phone: Advance Directives No Advanced Directives Records Found Advance Directive Response Recorded Date/ Time Advance Directives Yes December 31 1:12pm Living Will Yes January 01, 2016 1:12pm Power of Coin Box Collector Yes December 31 1:12pm Advance Directive Response Recorded Date/ Time Advance Directives Yes December 31 12:12pm Living Will Yes January 01, 2016 12:12pm Power of Coin Box Collector Yes December 31 12:12pm Advance Directive Response Recorded Date/ Time Name of Medical Power of Coin Box Collector Ellie Hernandes March 24, 2023 6:04pm Advance Directives Yes December 31 1:12pm Living Will Yes March 24 6:04pm Power of Coin Box Collector Yes March 24, 2023 6:04pm Documents on File Type Date Recorded Patient Medical Sonographer Expl anation Advance Directive(s) 11/01/2008 10:23 PM Advance Directive(s) 07/22/2006 Advance Directive Response Recorded Date/ Time Advance Directives Yes December 31 1:12pm Living Will Yes March 24 6:04pm Power of Coin Box Collector Yes March 24, 2023 6:04pm Advance Directive Response Recorded Date/ Time Advance Directives Yes December 31 1:12pm Chief Complaint and Reason for Visit Chief Complaint CERVICAL RAD Chief Complaint lac Summary Purpose Family History No Family History Records Found No data available for this section No Family History Records FoundNo Family History Records Found Additional Source Comments Goals (unrecognized section and content) Goals may be documented in a n alternate sectionGoals may be documented in an alternate sectionGoals may be documented in an alternate sectionGoals may be documented in an alternate sectionGoals may be documented in an alternate section No data available for this sectionGoals may be documented in an alternate sectionGoals may be documented in an alternate section Care Teams (unrecognized sec tion and content) Team Status: Active Member Role Status Dates Dr. Vern Alvarenga MD Family Provider Active Dr. Vern Alvarenga MD Primary Care Provider Active Team Status: Inactive Member Role Status Dates Dr. Vern Alvarenga MD Primary Care Provi goldy, Attending Provider, Referring Provider Active Team Status: Inactive Member Role Status Dates Dr. Vern Alvarenga MD Primary Care Provider Active Dr. Diane Olivarez MD Attending Provider Active Team Status: Inactive Member Role Status Dates Dr. Vern Alvarenga MD Primary Care Provider Active Vern LOTT Attending Provider Active Team Status: Inactive Member Role Status Dates Dr. Vern Alvarenga MD Primary Care Provider Active Dr. Kiran Coyle MD Emergency Provider Active Strip Machine Tender Relationship Specialty Start Date End Date Vern Alvarenga MD [address] [facility] [address] [place] [address] PCP - General 09/07/12 Team Status: Inactive Member Role Status Dates Dr. Vern Alvarenga MD Primary Care Provider, Attending Provider Active Team Status: Inactive Member Role Status Dates Dr. Vern Alvarenga MD Primary Care Provider Active Start: August 08, 2024 End: August 08, 2024 Dr. Vern Alvarenga MD Attending Provider Active Start: August 08, 2024 End: August 08, 2024 Dr. Vern Alvarenga MD Referring Provider Active Start: August 08, 2024 End: August 08, 2024 Team Status: Active Member Role/Relationship Status Dates Dr. Vern Alvarenga MD Family Provider Active Dr. Vern Alvarenga MD Primary Care Provider Active Team Status: Inactive Member Role/Relationship Status Dates Dr. Vern Alvarenga MD Primary Care Provider Active Start: December 17, 2024 End: December 17, 2024 Dr. Vern Alvarenga MD Attending Provider Active Start: December 17, 2024 End: December 17, 2024 Dr. Vern Alvarenga MD Referring Provider Active Start: December 17, 2024 End: December 17, 2024 Source Comments (unrecognize d section and content) In the event this informatio n is protected by the Federal Confidentiality of Alcohol and Drug Abuse Patient Records regulations: The Federal rules restrict any use of the information to criminally investigate or prosecute any alcohol or drug abuse patient.[facility] the event this information is protected by the Federal Confidentiality of Alcohol and Drug Abuse Patient Records regulations: The Federal rules restrict any use of the information to criminally investigate or prosecute any alcohol or drug abuse patient.[facility] the event this information is protected by the Federal Confidentiality of Alcohol and Drug Abuse Patient Records regulations: The Federal rules restrict any use of the information to criminally investigate or prosecute any alcohol or drug abuse patient.[facility] Reason for Visit (unrecogniz ed section and content) Reason Comments Future Appointment Esophageal manometry Reason Comments Future Appointment Esophageal manometry 05/26/23 (unrecognized sect ion and content) No Status Records FoundNo Status Records FoundNo Status Records Found INFORMATION SOURCE (unrecogn ized section and content) DATE CREATED AUTHOR 06/23/2023 [facility] DATE CREATED AUTHOR AUTHOR'S ORGANIZ ATION 10/13/2023 [facility] ([place]) DATE CREATED AUTHOR AUTHOR'S ORGANIZ ATION 12/21/2024 [facility] FOR RECORDS PERTAINING TO PATIENTS WHO ARE OR HAVE BEEN ENROLLED IN A CHEMICAL DEPENDENCY/SUBSTANCEABUSE PROGRAM, SOME INFORMATION MAY BE OMITTED. This clinical summary was aggregated from multiple sources. Caution should be exercised in using it in the provision of clinical care. This summary normalizes information from multiple sources, and as a consequence, information in this document may materially change the coding, format and clinical context of patient data. In addition, data may be omitted in some cases. CLINICAL DECISIONS SHOULD BE BASED ON THE PRIMARY CLINICAL RECORDS. [facility] [employer], [facility]. provides no warranty or guarantee of the accuracy or completeness of information in this document.
[2025-02-25 18:51] LABS: AST(SGOT) 23 U/L (<=37); Alanine Aminotransfer ALT/SGPT 19 U/L (<=46); Albumin, Serum 4.1 g/dL (3.4-4.8); Alkaline Phosphatase 106 U/L (40-129); Anion Gap 11 (5-15); BUN 20 mg/dL (4-19); BUN/Creat Ratio 19.1 RATIO (10-20); Calcium,Total 9.2 mg/dL (7.6-11.0); Carbon Dioxide 23.9 mmol/L (21.0-32.0); Chloride 104 mmol/L (98-108); Cholesterol 154 mg/dL (<=200); Globulin 3.2 g/dL (2.2-4.2); Glucose 92 mg/dL (70-99); Low Density Lipoprotein Calc. 78 mg/dL; Potassium 4.3 mmol/L (3.3-5.1); Triglycerides 153 mg/dL; Very Low Density Lipoprotein 31 mg/dL (5-40); cholesterol:hdl ratio screen 3.38
== END | disposition home or self-care (01) ==
LOC: MFPLAB 14:57
PROVIDERS: PCP Family Medicine; Visit Provider Family Medicine
DX: I10 Essential (primary) hypertension (principal)
CPT/HCPCS: 36415; 80053; 80061

== ENCOUNTER → 2025-06-04 | Outpatient (CLI) | payer MEDICARE, OTHER, SELFPAY ==
--- NOTE | 2025-06-04 14:21 | RAD_ITS ---
PROCEDURE: L/S SPINE W BEND MIN 6 VW 06/04/2025 REASON FOR EXAM: BACK PAIN TECHNIQUE: Procedure Code: [id number] Modality: DX Procedure: L/S SPINE W BEND MIN 6 VW COMPARISON: None FINDINGS: No acute or chronic fracture, pars defect or spondylolisthesis. Age consistent disc space narrowing noted throughout the lumbar spine with sclerotic endplate changes and multiple anterior spurs. No instability on the flexion or extension views. Range of motion however is extremely limited. 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 No acute abno rmalities No instability Reading Location: [id number]
--- NOTE | 2025-06-04 14:21 | RAD_ITS ---
PROCEDURE: KNEE 4 OR MORE VIEWS 06/04/2025 REASON FOR EXAM: PAIN IN KNEE TECHNIQUE: Procedure Code: RADKN Modality: DX Procedure: KNEE 4 OR MORE VIEWS COMPARISON: 06/13/2020 FINDINGS: No acute fracture or suspicious osseous lesion Severe narrowing of the medial compartment of the left knee joint with sclerotic changes on the articular surfaces of the distal femur and proximal tibia. The lateral knee joint compartment is normal with mild posterior patellar joint space narrowing. No joint effusion or suspicious soft tissue swelling no foreign body RAD/Knee 4 or More Views IMPRESSION: Severe narrowing of the medial knee joint compartment with sclerotic changes on the distal femur and proximal tibia with spur formation. Mild posterior patellar femoral narrowing No fracture or suspicious osseous lesion. No joint effusion Reading Location: [id number]
--- OUTSIDE RECORDS SUMMARY | 2025-06-04 19:29 | XMS RPT_ITS | CCD ---
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 Porras Primary Care Provider [phone] Dylan RATLIFF, Dr. Porras Attending Provider Dylan RATLIFF, Dr. Porras Referring Provider Dylan RATLIFF, Dr. Porras Primary Care Provider Dylan RATLIFF, Dr. Porras Attending Provider Dylan RATLIFF, Dr. Porras Referring Provider Dylan RATLIFF, Dr. Porras Primary Care Physician Dylan RATLIFF, Dr. Porras Attending Physician Vern Alvarenga Primary Care Unavailable Vern Alvarenga Attending Unavailable Vern Alvarenga Referring Unavailable Vern Alvarenga Primary Care Unavailable Vern Alvarenga Attending Unavailable Vern Alvarenga Referring Unavailable Dylan, Vern Primary Care Unavailable Vern Alvarenga Attending Unavailable Allergies Allergy Classification Reported Allergen(s) Allergy Type Date of Onset Reaction(s) Facility (13 sources) ceFAZolin; Translations: [CEFAZOLIN SODIUM] Drug Allergy 1 [facility] (13 sources) Niacin; Translations: [NIACIN] Drug Allergy 3 [facility] (4 sources) Citalopram; Translations: [CITALOPRAM] Drug Allergy 3 Unknown [facility] (1 source) ceFAZolin; Translations: [cefazolin] Drug Allergy becomes red and itchy [facility] (1 source) Niacin Drug Allergy 3 [facility] Repository Medications Current Medications Medication Drug Class(es) Dates Sig (Normalized) Sig (Original) acetaminophen 325 mg / oxyCODONE hydrochloride 5 mg oral tablet (17 sources) Opioid Agonist Start: 01-06-2016 Start: 01-06-2016 take 1 tablet by hunter th every four hours as needed Oxycodone-Acetaminophen Active 1 - 2 TABLET PO EVERY 4 HOURS NEEDED 90 January 06, 2016 12:00am Start: 01-30-2015 take 1 tablet by hunter th every six hours as needed Oxycodone-Acetaminophen Active 1 TABLET PO EVERY 6 HOURS NEEDED January 30, 2015 12:00am Start: 12-11-2013 ALPRAZolam 1 mg oral tablet (9 sources) Benzodiazepine Start: 12-11-2013 take 1 tablet by mouth four times daily aspirin 325 mg delayed release oral tablet (8 sources) Platelet Aggregation Inhibitor, Nonsteroidal Anti-inflammatory Drug Start: 01-01-2016 take 1 tablet by mouth once daily 12 hr buPROPion hydrochloride 150 mg extended release oral tablet (8 sources) Aminoketone Start: 01-01-2016 take 1 tablet by mouth twice daily docusate sodium 100 mg oral capsule (8 sources) Start: 01-06-2016 take 1 capsule by mouth twice daily as needed for constipation doxycycline monohydrate 100 mg oral capsule (5 sources) Tetracycline-class Drug Start: 03-24-2023 take 1 capsule by mouth twice daily hydroCHLOROthiazide 12.5 mg / lisinopril 10 mg oral tablet (12 sources) Thiazide Diuretic, Angiotensin Converting Enzyme Inhibitor Start: 12-11-2013 take 1 tablet by mouth once daily take 10-12.5 mg by mouth once li sinopril-hydrochlorothiazide (PRINZIDE) 10-12.5 mg per tablet Take 1 tablet by mouth once daily. 0 Active Comment on above: Take 1 tablet by hunter th once daily. meclizine hydrochloride 25 mg oral tablet (12 sources) Antiemetic Start: 01-30-2015 take 1 tablet by mouth four times daily as needed Start: 12-11-2013 take 1 tablet by hunter th three times daily meclizine 25 mg oral tablet Dose : 25 mg =, Oral, TID, 0 Refill(s) Start Date: 12/11/13 Status: Ordered Comment on above: Take by mouth. naproxen 500 mg oral tablet (12 sources) Nonsteroidal Anti-inflammatory Drug Start: 12-11-2013 take 1 tablet by mouth twice daily as needed for pain Naproxen Sodium 550 mg tablet Take 550 mg by mouth as needed. 0 Active Comment on above: Take 550 mg by mouth as needed. 12 hr oxyMORphone hydrochloride 20 mg extended release oral tablet (17 sources) Opioid Agonist Start: 01-06-2016 take 1 tablet by mouth every twelve hours Start: 01-01-2016 take 1 tablet by hunter th twice daily Start: 04-03-2015 oxymorphone 10 mg oral tablet Dose : 10 mg = 1 tab(s), Oral, q4h, 0 Refill(s) Start Date: 04/03/15 Status: Ordered pravastatin sodium 40 mg oral tablet (12 sources) HMG-CoA Reductase Inhibitor Start: 01-30-2015 take 1 tablet by mouth at bedtime Start: 12-11-2013 take 1 tablet by hunter [...] bedtime. promethazine hydrochloride 25 mg oral tablet (8 sources) Phenothiazine Start: 01-06-2016 take 1 tablet by mouth every four hours as needed for nausea QUEtiapine 300 mg oral tablet (9 sources) Atypical Antipsychotic Start: 01-01-2016 take 1 tablet by mouth at bedtime Start: 12-11-2013 take 1 tablet by hunter [...] Status: Ordered SUMAtriptan 100 mg oral tablet (12 sources) Serotonin-1b and Serotonin-1d Receptor Agonist Start: 12-11-2013 Start: 10-21-2010 Sumatriptan Oropeza ccinate (Imitrex) 100 MG tablet Active 100 MG PO .X1 PRN January 30, 2015 12:00am Comment on above: Take 1 tablet by hunter th as needed. at onset of headache. May repeat after 2 hours. tiZANidine 4 mg oral tablet (12 sources) Central alpha-2 Adrenergic Agonist Start: 01-01-2016 Start: 07-31-2012 take 1 tablet by hunter [...] tartrate 12.5 mg extended release oral tablet (12 sources) gamma-Aminobutyr ic Acid-ergic Agonist Start: 01-01-2016 take 1 tablet by mouth at bedtime as needed Start: 12-11-2013 Ambien 10 mg o ral [...] [Headache] 10-06-2006 Episodic Open wounds of extremities (5 sources) Laceration of left ring finger; Translations: [...] body region, initial encounter] 03-24-2023 Episodic Other injuries and conditions due to external causes (1 source) Sutured skin wound; Translations: [Other injury of unspecified body region, initial encounter] 04-01-2023 Episodic Other lower respiratory disease (1 source) Pleurodynia; Translations: [Pleurodynia] Onset: 5 Episodic Other nutritional; endocrine; and metabolic disorders (3 sources) Obesity; Translations: [Obesity, unspecified] 10-07-2006 Chronic Pulmonary heart disease (8 sources) Pulmonary embolism; Translations: [Other pulmonary embolism [...] Test Name Value Interpretation Reference Range Facility Anion gap in Serum or Plasma Ordered By: Vern Alvarenga on 02-25-2025 Anion gap [Moles/Vol] 11 mmol/L 5-15 [facility] BUN/creatinine ratioOrdered By: Vern Alvarenga on 02-25-2025 Urea nitrogen/Creatinine [Mass ratio] 19.1 mg/mg 10-20 [facility] Bilirubin, totalOrdered By: Vern Alvarenga on 02-25-2025 Bilirubin [Mass/Vol] 0.29 mg/dL 0.00-1.30 [facility] Calculated very low density lipoprotein (VLDL) cholesterol measurementOrdered By: Vern Alvarenga on 02-25-2025 Calculated very low density lipoprotein (VLDL) cholesterol measurement 31 mg/dL 5-40 [facility] Carbon dioxide, total [Moles /volume] in Central venous bloodOrdered By: Vern Alvarenga on 02-25-2025 CO2 [Moles/Vol] 23.9 mmol/L 21.0-32.0 [facility] Chloride assayOrdered By: Isidoro Alvarenga on 02-25-2025 Chloride [Moles/Vol] 104 mmol/L 98-108 [facility] Comprehensive Metabolic Prof ilon 02-25-2025 Albumin [Mass/Vol] 4.1 g/dL Normal 3.4-4.8 [facility] Comment on above: Performed By: #### L 500.4050, L500.4100 #### [facility] [address] [place], [address] Albumin/Globulin [Mass ratio] 1.3 {ratio} Normal 0.9-2.4 [facility] Comment on above: Performed By: #### L 500.4050, L500.4100 #### [facility] [address] [place], [address] ALK PHOS 106 U/L Normal 40-129 [facility] Comment on above: Performed By: #### L 500.4050, L500.4100 #### [facility] [address] [place], [address] ALT [Catalytic activity/Vol] 19 U/L Normal <=46 [facility] Comment on above: Performed By: #### L 500.4050, L500.4100 #### [facility] [address] [place], [address] AST [Catalytic activity/Vol] 23 U/L Normal <=37 [facility] Comment on above: Performed By: #### L 500.4050, L500.4100 #### [facility] [address] [place], [address] Bilirubin [Mass/Vol] 0.29 mg/dL Normal 0.00-1.30 [facility] Comment on above: Performed By: #### L 500.4050, L500.4100 #### [facility] [address] [place], [address] BUN/CRE 19.1 RATIO Normal 10-20 [facility] Comment on above: Performed By: #### L 500.4050, L500.4100 #### [facility] [address] [place], [address] Calcium [Mass/Vol] 9.2 mg/dL Normal 7.6-11.0 [facility] Comment on above: Performed By: #### L 500.4050, L500.4100 #### [facility] [address] [place], [address] Chloride [Moles/Vol] 104 mmol/L Normal 98-108 [facility] Comment on above: Performed By: #### L 500.4050, L500.4100 #### [facility] [address] [place], [address] CO2 [Moles/Vol] 23.9 mmol/L Normal 21.0-32.0 [facility] Comment on above: Performed By: #### L 500.4050, L500.4100 #### [facility] [address] [place], [address] Creatinine [Mass/Vol] 1.05 mg/dL Normal 0.70-1.20 [facility] Comment on above: Performed By: #### L 500.4050, L500.4100 #### [facility] [address] [place], [address] GAP 11 Normal 5-15 [facility] Comment on above: Performed By: #### L 500.4050, L500.4100 #### [facility] [address] [place], [address] GFR/1.73 sq M.predicted among non-blacks MDRD (S/P/Bld) [Vol rate/Area] 76 mL/min/{1.73_m2} Normal >60 [facility] Comment on above: Result Comment: mL/m in/1.73m2 CKD-EPI Creatinine Equation (2020) Performed By: #### L 500.4050, L500.4100 #### [facility] [address] [place], [address] Globulin (S) [Mass/Vol] 3.2 g/dL Normal 2.2-4.2 [facility] Comment on above: Performed By: #### L 500.4050, L500.4100 #### [facility] [address] [place], [address] Glucose [Mass/Vol] 92 mg/dL Normal 70-99 [facility] Comment on above: Performed By: #### L 500.4050, L500.4100 #### [facility] [address] [place], [address] Potassium [Moles/Vol] 4.3 mmol/L Normal 3.3-5.1 [facility] Comment on above: Performed By: #### L 500.4050, L500.4100 #### [facility] [address] [place], [address] Sodium [Moles/Vol] 139 mmol/L Normal 133-145 [facility] Comment on above: Performed By: #### L 500.4050, L500.4100 #### [facility] [address] [place], [address] T PROT 7.4 g/dL Normal 5.9-8.4 [facility] Comment on above: Performed By: #### L 500.4050, L500.4100 #### [facility] [address] [place], [address] Urea nitrogen [Mass/Vol] 20 mg/dL High 4-19 [facility] Comment on above: Performed By: #### L 500.4050, L500.4100 #### [facility] [address] [place], [address] Glomerular filtration rate ( GFR) estimation/1.73 sq m using serum, plasma, or whole bOrdered By: Vern Alvarenga on 02-25-2025 GFR/1.73 sq M.predicted among non-blacks MDRD (S/P/Bld) [Vol rate/Area] 76 mL/min/{1.73_m2} >60 [facility] Comment on above: mL/min/1.73m2 CKD-EP I Creatinine Equation (2020) LDL calc ser/plasOrdered By: Vern Alvarenga on 02-25-2025 Cholesterol in LDL [Mass/Vol] 78 mg/dL [facility] Comment on above: Ijfzwhmlxh=386-163 m g/dL & Higher Fyun=041 mg/dL or greaterFriedwald Equation for LDL-C Laboratory - Chemistry and C hemistry - challengeOrdered By: Vern Alvarenga on 02-25-2025 AST [Catalytic activity/Vol] 23 U/L <38 [facility] Lipid Profileon 02-25-2025 CHOL:HDL 3.38 Normal [facility] Comment on above: Performed By: #### L 500.4050, L500.4100 #### [facility] [address] [place], [address] Cholesterol [Mass/Vol] 154 mg/dL Normal <=200 [facility] Comment on above: Result Comment: Chol esterol level, Desirable <200 mg/dL Borderline high cholesterol 200-239 mg/dL High cholesterol >=240 mg/dL Recommendations of the NCEP Adult Treatment Panel for the following risk-cutoff thresholds for the [place] population. Performed By: #### L 500.4050, L500.4100 #### [facility] [address] [place], [address] Cholesterol in HDL [Mass/Vol] 46 mg/dL Normal [facility] Comment on above: Result Comment: Asha onal Cholesterol Education Program (NCEP) guidelines: <40 mg/dL: Low HDL-cholesterol (major risk factor for CHD) >= 60 mg/dL: High HDL-cholesterol (negative risk factor for CHD) HDL-cholesterol is affected by a number of factors, e.g. smoking, exercise, hormones, sex and age. Performed By: #### L 500.4050, L500.4100 #### [facility] [address] [place], [address] Cholesterol in LDL [Mass/Vol] 78 mg/dL Normal [facility] Comment on above: Result Comment: Bord pjqaga=282-678 mg/dL Higher Qyce=026 mg/dL or greater Friedwald Equation for LDL-C Performed By: #### L 500.4050, L500.4100 #### [facility] [address] [place], [address] Cholesterol in VLDL [Mass/Vol] 31 mg/dL Normal 5-40 [facility] Comment on above: Performed By: #### L 500.4050, L500.4100 #### [facility] [address] [place], [address] Triglyceride [Mass/Vol] 153 mg/dL Normal [facility] Comment on above: Result Comment: The drugs N-Acetylcysteine and Metamizole may falsely depress this assay. Normal range: <150 mg/dL Borderline High: 150-199 mg/dL High: 200-499 mg/dL Very High: >500 mg/dL Performed By: #### L 500.4050, L500.4100 #### [facility] [address] [place], [address] Potassium measurement (mass/ volume)Ordered By: Vern Alvarenga on 02-25-2025 Potassium (Unsp spec) [Mass/Vol] 4.3 mmol/L 3.3-5.1 [facility] Screening total cholesterol/ high density lipoprotein (HDL) cholesterol ratioOrdered By: Vern Alvarenga on 02-25-2025 Cholesterol.total/Rosa sterol in HDL [Mass ratio] 3.38 {ratio} [facility] Serum creatinine measurement (mass/volume)Ordered By: Vern Alvarenga on 02-25-2025 Creatinine [Mass/Vol] 1.05 mg/dL 0.70-1.20 [facility] Serum globulin measurementOr dered By: Vern Alvarenga on 02-25-2025 Globulin (S) [Mass/Vol] 3.2 g/dL 2.2-4.2 [facility] Serum glucose measurement (m ass/volume)Ordered By: Vern Alvarenga on 02-25-2025 Glucose [Mass/Vol] 92 mg/dL 70-99 [facility] Serum or plasma alanine duron otransferase (ALT) measurementOrdered By: Vern Alvarenga on 02-25-2025 ALT [Catalytic activity/Vol] 19 U/L <47 [facility] Serum or plasma albumin andres urement (mass/volume)Ordered By: Vern Alvarenga on 02-25-2025 Albumin [Mass/Vol] 4.1 g/dL 3.4-4.8 [facility] Serum or plasma albumin/glob ulin mass ratioOrdered By: Vern Alvarenga on 02-25-2025 Albumin/Globulin [Mass ratio] 1.3 {ratio} 0.9-2.4 [facility] Serum or plasma alkaline tuan sphatase measurementOrdered By: Vern Alvarenga on 02-25-2025 ALP [Catalytic activity/Vol] 106 U/L 40-129 [facility] Serum or plasma calcium andres urement (mass/volume)Ordered By: Vern Alvarenga on 02-25-2025 Calcium [Mass/Vol] 9.2 mg/dL 7.6-11.0 [facility] Serum or plasma cholesterol in HDL measurement (mass/volume)Ordered By: Vern Alvarenga on 02-25-2025 Cholesterol in HDL [Mass/Vol] 46 mg/dL >40 [facility] Comment on above: National Cholesterol Education Program (NCEP) guidelines:<40 mg/dL: Low HDL-cholesterol (major risk factor for CHD)>= 60 mg/dL: High HDL-cholesterol (negative risk factor for CHD)HDL-cholesterol is affected by a number of factors, e.g. smoking, exercise, hormones, sex and age. Serum or plasma cholesterol measurement (mass/volume)Ordered By: Vern Alvarenga on 02-25-2025 Cholesterol [Mass/Vol] 154 mg/dL <201 [facility] Comment on above: Cholesterol level, D esirable <200 mg/dLBorderline high cholesterol 200-239 mg/dLHigh cholesterol >=240 mg/dLRecommendations of the NCEP Adult Treatment Panel for the following risk-cutoff thresholds for the [place] population. Serum or plasma urea nitroge n measurement (mass/volume)Ordered By: Vern Alvarenga on 02-25-2025 Urea nitrogen [Mass/Vol] 20 mg/dL High 4-19 [facility] Sodium levelOrdered By: Vern Alvarenga on 02-25-2025 Sodium [Moles/Vol] 139 mmol/L 133-145 [facility] Total proteinOrdered By: Arabella Alvarenga on 02-25-2025 Protein [Mass/Vol] 7.4 g/dL 5.9-8.4 [facility] Triglycerides measurementOrd ered By: Vern Alvarenga on 02-25-2025 Triglyceride [Mass/Vol] 153 mg/dL <199 [facility] Comment on above: The drugs N-Acetylcy steine and Metamizole may falsely depress this assay. Normal range: <150 mg/dLBorderline High: 150-199 mg/dLHigh: 200-499 mg/dLVery High: >500 mg/dL Ribs Uni Min 3V w/PA Cheston 12-17-2024 Ribs Uni Min 3V w/PA Chest [facility] Services [address], [place] [address] Ribs Uni Min 3V w/PA Chest MR#: [id number] Acct: [id number] Name: DIANE HERNANDES Rep #: [id number] : [id number] M [id number] From: Gerardo Curtis MD PCP: Dr. Vern Alvarenga MD Status: REG CLI Study: Ribs Uni Min 3V w/PA Chest Date of Exam: 12/17 Exam# [id number] Ordering Dr: Vern Alvarenga MD EXAM: XR [...] IMPRESSION: No displaced rib fractures. [facility] CC: Dr. Vern Alvarenga MD Help Aid: Signed Normal [facility] Anion gap in Serum or Plasma Ordered By: Vern Alvarenga on 08-08-2024 Anion gap [Moles/Vol] 12 mmol/L 5-15 [facility] BUN/creatinine ratioOrdered By: Vern Alvarenga on 08-08-2024 Urea nitrogen/Creatinine [Mass ratio] 21.8 mg/mg High 10-20 [facility] Bilirubin, totalOrdered By: Vern Alvarenga on 08-08-2024 Bilirubin [Mass/Vol] 0.26 mg/dL 0.00-1.30 [facility] Calculated very low density lipoprotein (VLDL) cholesterol measurementOrdered By: Vern Alvarenga on 08-08-2024 VLDL Cholesterol 36 mg/dL 5-40 [facility] Carbon dioxide, total [Moles /volume] in Central venous bloodOrdered By: Vern Alvarenga on 08-08-2024 CO2 [Moles/Vol] 24.5 mmol/L 21.0-32.0 [facility] Chloride assayOrdered By: Isidoro Alvarenga on 08-08-2024 Chloride [Moles/Vol] 104 mmol/L 98-108 [facility] Comprehensive Metabolic Prof ilon 08-08-2024 Albumin [Mass/Vol] 4.3 g/dL Normal 3.4-4.8 [facility] Comment on above: Performed By: #### L 500.4100, L500.4050 #### [facility] [address] [place], [address] Albumin/Globulin [Mass ratio] 1.3 {ratio} Normal 0.9-2.4 [facility] Comment on above: Performed By: #### L 500.4100, L500.4050 #### [facility] [address] [place], [address] ALK PHOS 106 U/L Normal 40-129 [facility] Comment on above: Performed By: #### L 500.4100, L500.4050 #### [facility] [address] [place], [address] ALT [Catalytic activity/Vol] 19 U/L Normal <=46 [facility] Comment on above: Performed By: #### L 500.4100, L500.4050 #### [facility] [address] [place], [address] AST [Catalytic activity/Vol] 21 U/L Normal <=37 [facility] Comment on above: Performed By: #### L 500.4100, L500.4050 #### [facility] [address] [place], [address] Bilirubin [Mass/Vol] 0.26 mg/dL Normal 0.00-1.30 [facility] Comment on above: Performed By: #### L 500.4100, L500.4050 #### [facility] [address] [place], [address] BUN/CRE 21.8 RATIO High 10-20 [facility] Comment on above: Performed By: #### L 500.4100, L500.4050 #### [facility] [address] [place], [address] Calcium [Mass/Vol] 9.2 mg/dL Normal 7.6-11.0 [facility] Comment on above: Performed By: #### L 500.4100, L500.4050 #### [facility] [address] [place], [address] Chloride [Moles/Vol] 104 mmol/L Normal 98-108 [facility] Comment on above: Performed By: #### L 500.4100, L500.4050 #### [facility] [address] [place], [address] CO2 [Moles/Vol] 24.5 mmol/L Normal 21.0-32.0 [facility] Comment on above: Performed By: #### L 500.4100, L500.4050 #### [facility] [address] [place], [address] Creatinine [Mass/Vol] 1.05 mg/dL Normal 0.70-1.20 [facility] Comment on above: Performed By: #### L 500.4100, L500.4050 #### [facility] [address] [place], [address] GAP 12 Normal 5-15 [facility] Comment on above: Performed By: #### L 500.4100, L500.4050 #### [facility] [address] [place], [address] GFR/1.73 sq M.predicted among non-blacks MDRD (S/P/Bld) [Vol rate/Area] 77 mL/min/{1.73_m2} Normal >60 [facility] Comment on above: Result Comment: mL/m in/1.73m2 CKD-EPI Creatinine Equation (2020) Performed By: #### L 500.4100, L500.4050 #### [facility] [address] [place], [address] Globulin (S) [Mass/Vol] 3.3 g/dL Normal 2.2-4.2 [facility] Comment on above: Performed By: #### L 500.4100, L500.4050 #### [facility] [address] [place], [address] Glucose [Mass/Vol] 103 mg/dL High 70-99 [facility] Comment on above: Performed By: #### L 500.4100, L500.4050 #### [facility] [address] [place], [address] Potassium [Moles/Vol] 4.2 mmol/L Normal 3.3-5.1 [facility] Comment on above: Performed By: #### L 500.4100, L500.4050 #### [facility] [address] [place], [address] Sodium [Moles/Vol] 140 mmol/L Normal 133-145 [facility] Comment on above: Performed By: #### L 500.4100, L500.4050 #### [facility] [address] [place], [address] T PROT 7.6 g/dL Normal 5.9-8.4 [facility] Comment on above: Performed By: #### L 500.4100, L500.4050 #### [facility] [address] [place], [address] Urea nitrogen [Mass/Vol] 23 mg/dL High 4-19 [facility] Comment on above: Performed By: #### L 500.4100, L500.4050 #### [facility] [address] [place], [address] GFR/1.73 sq M.predicted anuj g non-blacks MDRD (S/P/Bld) [Vol rate/Area]Ordered By: Vern Alvarenga on 08-08-2024 Estimated GFR (MDRD) Non-Af Amer 77 >60 [facility] Comment on above: mL/min/1.73m2 CKD-EP I Creatinine Equation (2020) LDL calc ser/plasOrdered By: Vern Alvarenga on 08-08-2024 LDL Cholesterol, Calculated 79 mg/dL [facility] Comment on above: Fvxrqinxww=598-780 m g/dL & Higher Mxbt=461 mg/dL or greater Laboratory - Chemistry and C hemistry - challengeOrdered By: Vern Alvarenga on 08-08-2024 AST [Catalytic activity/Vol] 21 U/L <38 [facility] Lipid Profileon 08-08-2024 CHOL:HDL 3.45 Normal [facility] Comment on above: Performed By: #### L 500.4100, L500.4050 #### [facility] [address] [place], [address] Cholesterol [Mass/Vol] 163 mg/dL Normal <=200 [facility] Comment on above: Result Comment: Chol esterol level, Desirable <200 mg/dL Borderline high cholesterol 200-239 mg/dL High cholesterol >=240 mg/dL Recommendations of the NCEP Adult Treatment Panel for the following risk-cutoff thresholds for the [place] population. Performed By: #### L 500.4100, L500.4050 #### [facility] [address] [place], [address] Cholesterol in HDL [Mass/Vol] 47 mg/dL Normal [facility] Comment on above: Result Comment: Asha onal Cholesterol Education Program (NCEP) guidelines: <40 mg/dL: Low HDL-cholesterol (major risk factor for CHD) >= 60 mg/dL: High HDL-cholesterol (negative risk factor for CHD) HDL-cholesterol is affected by a number of factors, e.g. smoking, exercise, hormones, sex and age. Performed By: #### L 500.4100, L500.4050 #### [facility] [address] [place], [address] Cholesterol in LDL [Mass/Vol] 79 mg/dL Normal [facility] Comment on above: Result Comment: Bord cmslxu=745-105 mg/dL Higher Wcgo=117 mg/dL or greater Performed By: #### L 500.4100, L500.4050 #### [facility] [address] [place], [address] Cholesterol in VLDL [Mass/Vol] 36 mg/dL Normal 5-40 [facility] Comment on above: Performed By: #### L 500.4100, L500.4050 #### [facility] [address] [place], [address] Triglyceride [Mass/Vol] 182 mg/dL Normal [facility] Comment on above: Result Comment: The drugs N-Acetylcysteine and Metamizole may falsely depress this assay. Normal range: <150 mg/dL Borderline High: 150-199 mg/dL High: 200-499 mg/dL Very High: >500 mg/dL Performed By: #### L 500.4100, L500.4050 #### [facility] [address] [place], [address] Potassium (Unsp spec) [Mass/ Vol]Ordered By: Vern Alvarenga on 08-08-2024 Potassium [Moles/Vol] 4.2 mmol/L 3.3-5.1 [facility] Screening total cholesterol/ high density lipoprotein (HDL) cholesterol ratioOrdered By: Vern Alvarenga on 08-08-2024 Cholesterol.total/Rosa sterol in HDL [Mass ratio] 3.45 {ratio} [facility] Serum creatinine measurement (mass/volume)Ordered By: Vern Alvarenga on 08-08-2024 Creatinine [Mass/Vol] 1.05 mg/dL 0.70-1.20 [facility] Serum globulin measurementOr dered By: Vern Alvarenga on 08-08-2024 Globulin (S) [Mass/Vol] 3.3 g/dL 2.2-4.2 [facility] Serum glucose measurement (m ass/volume)Ordered By: Vern Alvarenga on 08-08-2024 Glucose [Mass/Vol] 103 mg/dL High 70-99 [facility] Serum or plasma alanine duron otransferase (ALT) measurementOrdered By: Vern Alvarenga on 08-08-2024 ALT [Catalytic activity/Vol] 19 U/L <47 [facility] Serum or plasma albumin andres urement (mass/volume)Ordered By: Vern Alvarenga on 08-08-2024 Albumin [Mass/Vol] 4.3 g/dL 3.4-4.8 [facility] Serum or plasma albumin/glob ulin mass ratioOrdered By: Vern Alvarenga on 08-08-2024 Albumin/Globulin [Mass ratio] 1.3 {ratio} 0.9-2.4 [facility] Serum or plasma alkaline tuan sphatase measurementOrdered By: Vern Alvarenga on 08-08-2024 ALP [Catalytic activity/Vol] 106 U/L 40-129 [facility] Serum or plasma calcium andres urement (mass/volume)Ordered By: Vern Alvarenga on 08-08-2024 Calcium [Mass/Vol] 9.2 mg/dL 7.6-11.0 [facility] Serum or plasma cholesterol in HDL measurement (mass/volume)Ordered By: Vern Alvarenga on 08-08-2024 Cholesterol in HDL [Mass/Vol] 47 mg/dL >40 [facility] Comment on above: National Cholesterol Education Program (NCEP) guidelines:<40 mg/dL: Low HDL-cholesterol (major risk factor for CHD)>= 60 mg/dL: High HDL-cholesterol (negative risk factor for CHD)HDL-cholesterol is affected by a number of factors, e.g. smoking, exercise, hormones, sex and age. Serum or plasma cholesterol measurement (mass/volume)Ordered By: Vern Alvarenga on 08-08-2024 Cholesterol [Mass/Vol] 163 mg/dL <201 [facility] Comment on above: Cholesterol level, D esirable <200 mg/dLBorderline high cholesterol 200-239 mg/dLHigh cholesterol >=240 mg/dLRecommendations of the NCEP Adult Treatment Panel for the following risk-cutoff thresholds for the [place] population. Serum or plasma urea nitroge n measurement (mass/volume)Ordered By: Vern Alvarenga on 08-08-2024 Urea nitrogen [Mass/Vol] 23 mg/dL High 4-19 [facility] Sodium levelOrdered By: Vern Alvarenga on 08-08-2024 Sodium [Moles/Vol] 140 mmol/L 133-145 [facility] Total proteinOrdered By: Arabella Alvarenga on 08-08-2024 Protein [Mass/Vol] 7.6 g/dL 5.9-8.4 [facility] Triglycerides measurementOrd ered By: Vern Alvarenga on 08-08-2024 Triglyceride [Mass/Vol] 182 mg/dL <199 [facility] Comment on above: The drugs N-Acetylcy steine and Metamizole may falsely depress this assay. Normal range: <150 mg/dLBorderline High: 150-199 mg/dLHigh: 200-499 mg/dLVery High: >500 mg/dL Basophil percentageOrdered B y: Vern Alvarenga on 08-26-2023 Chloride [Moles/Vol] 109 mmol/L 98-107 [facility] Cholesterol [Mass/Vol] 135 mg/dL <200 [facility] Comment on above: <200 mg/dL Desirable 200-240 mg/dL Borderline >240 mg/dL High Risk Glucose [Mass/Vol] 111 mg/dL 74-106 [facility] Comment on above: Fasting Glucose resu lt from 100 to 125 mg/dL suggests IMPAIRED HOMEOSTASIS per A.D.A. criteria. Potassium [Moles/Vol] 3.9 mmol/L 3.5-5.1 [facility] Sodium [Moles/Vol] 141 mmol/L 136-145 [facility] Triglyceride [Mass/Vol] 155 mg/dL <199 [facility] Comment on above: The drugs N-Acetylcy steine and Metamizole may falsely depress this assay.Serum Triglycerides Reference Interval Normal <150 mg/dL Borderline high 150 - 199 mg/dL High 200 - 499 mg/dL Very High > or = 500 mg/dL Laboratory - Chemistry and C hemistry - challengeOrdered By: Vern Alvarenga on 08-26-2023 Cholesterol in HDL [Mass/Vol] 54 mg/dL >40 [facility] Comment on above: The drugs N-Acetylcy steine and Metamizole may falsely depress this assay. Reference Range HDL <40 mg/dL Low HDL Cholesterol HDL >or= 60 mg/dL High HDL Cholesterol Cholesterol in LDL [Mass/Vol] 50 mg/dL 0-130 [facility] CO2 [Moles/Vol] 27.0 mmol/L 21.0-32.0 [facility] Urea nitrogen/Creatinine [Mass ratio] 13.2 mg/mg 10-20 [facility] No Panel InformationOrdered By: Vern Alvarenga on 08-26-2023 Estimated GFR (MDRD) Amer 77 mL/min >60 [facility] Comment on above: GFR Calc Estimated GFR (MDRD) Non-Af Amer 63 mL/min >60 [facility] Comment on above: Non- GFR Calc VLDL Cholesterol 31 mg/dL 5-40 [facility] Serum or plasma calcium andres urement (mass/volume)Ordered By: Vern Alvarenga on 08-26-2023 Calcium [Mass/Vol] 8.9 mg/dL 8.5-10.1 [facility] Serum or plasma creatinine m easurement (mass/volume)Ordered By: Vern Alvarenga on 08-26-2023 Creatinine [Mass/Vol] 1.21 mg/dL 0.70-1.30 [facility] Comment on above: The validity of the calculated GFR & GFRAA in patients over 70 years has not been determined. Clinical correlation is essential. Serum or plasma urea nitroge n measurement (mass/volume)Ordered By: Vern Alvarenga on 08-26-2023 Urea nitrogen [Mass/Vol] 16 mg/dL 7-18 [facility] Thin prep Papanicolaou smear with manual screeningOrdered By: Vern Alvarenga on 08-26-2023 Thin prep Papanicolaou smear with manual screening 5 5-15 [facility] NURSING PROGon 06-22-2023 NURSING PROG HNO ID: [id number] Author: MILIND HALEY RN Service: Nursing Author [...] noted when catheter removed. Milind Haley RN [facility] 06-09-2023 [facility] Telephone (AGGENS4) DIANE HERNANDES ([id number]) 1955 M Date Time Provider Department 06/09/23 [...] Reschedule manometry Prescriptions as of 06/09/2023 - lisinopril-hydrochlor othiazide (PRINZIDE) 10-12.5 mg per tablet Take 1 tablet by mouth once daily. - HYDROCODONE-ACETAMINO PHEN ES 7.5-750 mg per tablet - TIZANIDINE [...] Encounter Status:Closed by SHRUTHI MONREAL on 06/09/23 [facility] 05-10-2023 [facility] Telephone (AGGENS4) DIANE HERNANDES ([id number]) 1955 M Date Time Provider Department 05/10/23 FELIPE ADAMSON4 During your visit today, we [...] Esophageal manometry Prescriptions as of 05/10/2023 - lisinopril-hydrochlor othiazide (PRINZIDE) 10-12.5 mg per tablet Take 1 tablet by mouth once daily. - HYDROCODONE-ACETAMINO PHEN ES 7.5-750 mg per tablet - TIZANIDINE [...] on 05/10/23 [facility] Telephone (AGGENS4) DIANE HERNANDES ([id number]) 1955 M Date Time Provider Department 05/10/23 FELIPE ADAMSONENS4 During your visit today, we recorded the following information about you: Shruthi Monreal RN 05/10/2023 4:24 PM Signed The patient returned my call and we verbally discussed and reviewed the information about esophageal manometry. All of patient's questions were answered. Patient agreed to be scheduled on 05/26/23 at 10:00 AM I sent the patient written information via [employer] about esophageal manometry and the prep instructions, [...] manometry 05/26/23 Prescriptions as of 05/10/2023 - lisinopril-hydrochlor othiazide (PRINZIDE) 10-12.5 mg per tablet Take 1 tablet by mouth once daily. - HYDROCODONE-ACETAMINO PHEN ES 7.5-750 mg per tablet - TIZANIDINE [...] by SHRUTHI MONREAL on 05/10/23 [facility] Basophil percentageOrdered B y: Vern Alvarenga on 12-03-2022 Bilirubin [Mass/Vol] 0.30 mg/dL 0.20-1.00 [facility] Comment on above: For patients on eltr ombopag therapy, use of Dimension [place] TBIL is not recommended. Chloride [Moles/Vol] 107 mmol/L 98-107 [facility] Cholesterol [Mass/Vol] 134 mg/dL <200 [facility] Comment on above: <200 mg/dL Desirable 200-240 mg/dL Borderline >240 mg/dL High Risk Glucose [Mass/Vol] 99 mg/dL 74-106 [facility] Potassium [Moles/Vol] 4.1 mmol/L 3.5-5.1 [facility] Protein [Mass/Vol] 7.5 g/dL 6.4-8.2 [facility] Sodium [Moles/Vol] 139 mmol/L 136-145 [facility] Triglyceride [Mass/Vol] 125 mg/dL <199 [facility] Comment on above: The drugs N-Acetylcy steine and Metamizole may falsely depress this assay.Serum Triglycerides Reference Interval Normal <150 mg/dL Borderline high 150 - 199 mg/dL High 200 - 499 mg/dL Very High > or = 500 mg/dL Laboratory - Chemistry and C hemistry - challengeOrdered By: Vern Alvarenga on 12-03-2022 ALP [Catalytic activity/Vol] 109 U/L 45-117 [facility] ALT [Catalytic activity/Vol] 30 U/L 16-61 [facility] CO2 [Moles/Vol] 26.0 mmol/L 21.0-32.0 [facility] Globulin (S) [Mass/Vol] 3.9 g/dL 2.2-4.2 [facility] Urea nitrogen/Creatinine [Mass ratio] 11.8 mg/mg 10-20 [facility] No Panel InformationOrdered By: Vern Alvarenga on 12-03-2022 Estimated GFR (MDRD) Amer 73 mL/min >60 [facility] Comment on above: GFR Calc Estimated GFR (MDRD) Non-Af Amer 60 mL/min >60 [facility] Comment on above: Non- GFR Calc Serum or plasma albumin andres urement (mass/volume)Ordered By: Vern Alvarenga on 12-03-2022 Albumin [Mass/Vol] 3.6 g/dL 3.2-5.0 [facility] Serum or plasma albumin/glob ulin mass ratioOrdered By: Vern Alvarenga on 12-03-2022 Albumin/Globulin [Mass ratio] 0.9 {ratio} 0.9-2.4 [facility] Serum or plasma calcium andres urement (mass/volume)Ordered By: Vern Alvarenga on 12-03-2022 Calcium [Mass/Vol] 9.1 mg/dL 8.5-10.1 [facility] Serum or plasma cholesterol in HDL measurement (mass/volume)Ordered By: Vern Alvarenga on 12-03-2022 Cholesterol in HDL [Mass/Vol] 49 mg/dL >40 [facility] Comment on above: The drugs N-Acetylcy steine and Metamizole may falsely depress this assay. Reference Range HDL <40 mg/dL Low HDL Cholesterol HDL >or= 60 mg/dL High HDL Cholesterol Serum or plasma cholesterol in VLDL measurement (mass/volume)Ordered By: Vern Alvarenga on 12-03-2022 Cholesterol in VLDL [Mass/Vol] 25 mg/dL 5-40 [facility] Serum or plasma creatinine m easurement (mass/volume)Ordered By: Vern Alvarenga on 12-03-2022 Creatinine [Mass/Vol] 1.27 mg/dL 0.70-1.30 [facility] Comment on above: The validity of the calculated GFR & GFRAA in patients over 70 years has not been determined. Clinical correlation is essential. Serum or plasma low density lipoprotein (LDL) cholesterol measurement (mass/volume)Ordered By: Vern Alvarenga on 12-03-2022 Cholesterol in LDL [Mass/Vol] 60 mg/dL 0-130 [facility] Serum or plasma urea nitroge n measurement (mass/volume)Ordered By: Vern Alvarenga on 12-03-2022 Urea nitrogen [Mass/Vol] 15 mg/dL 7-18 [facility] Thin prep Papanicolaou smear with manual screeningOrdered By: Vern Alvarenga on 12-03-2022 Thin prep Papanicolaou smear with manual screening 20 U/L 15-37 [facility] Thin prep Papanicolaou smear with manual screening 6 5-15 [facility] Basophil percentageOrdered B y: Dr. Alvarenga on 03-18-2022 Bilirubin [Mass/Vol] 0.40 mg/dL 0.20-1.00 [facility] Comment on above: For patients on eltr ombopag therapy, use of Dimension [place] TBIL is not recommended. Chloride [Moles/Vol] 110 mmol/L 98-107 [facility] Cholesterol [Mass/Vol] 131 mg/dL <200 [facility] Comment on above: <200 mg/dL Desirable 200-240 mg/dL Borderline >240 mg/dL High Risk Glucose [Mass/Vol] 96 mg/dL 74-106 [facility] Potassium [Moles/Vol] 4.1 mmol/L 3.5-5.1 [facility] Protein [Mass/Vol] 7.5 g/dL 6.4-8.2 [facility] Sodium [Moles/Vol] 141 mmol/L 136-145 [facility] Triglyceride [Mass/Vol] 97 mg/dL <199 [facility] Comment on above: The drugs N-Acetylcy steine and Metamizole may falsely depress this assay.Serum Triglycerides Reference Interval Normal <150 mg/dL Borderline high 150 - 199 mg/dL High 200 - 499 mg/dL Very High > or = 500 mg/dL Laboratory - Chemistry and C hemistry - challengeOrdered By: Dr. Alvarenga on 03-18-2022 ALP [Catalytic activity/Vol] 92 U/L 45-117 [facility] ALT [Catalytic activity/Vol] 35 U/L 16-61 [facility] CO2 [Moles/Vol] 25.0 mmol/L 21.0-32.0 [facility] Globulin (S) [Mass/Vol] 3.9 g/dL 2.2-4.2 [facility] Urea nitrogen/Creatinine [Mass ratio] 22.4 mg/mg 10-20 [facility] No Panel InformationOrdered By: Dr. Alvarenga on 03-18-2022 Estimated GFR (MDRD) Amer 89 mL/min >60 [facility] Comment on above: GFR Calc Estimated GFR (MDRD) Non-Af Amer 73 mL/min >60 [facility] Comment on above: Non- GFR Calc Serum or plasma albumin andres urement (mass/volume)Ordered By: Dr. Alvarenga on 03-18-2022 Albumin [Mass/Vol] 3.6 g/dL 3.2-5.0 [facility] Serum or plasma albumin/glob ulin mass ratioOrdered By: Dr. Alvarenga on 03-18-2022 Albumin/Globulin [Mass ratio] 0.9 {ratio} 0.9-2.4 [facility] Serum or plasma calcium andres urement (mass/volume)Ordered By: Dr. Alvarenga on 03-18-2022 Calcium [Mass/Vol] 8.8 mg/dL 8.5-10.1 [facility] Serum or plasma cholesterol in HDL measurement (mass/volume)Ordered By: Dr. Alvarenga on 03-18-2022 Cholesterol in HDL [Mass/Vol] 53 mg/dL >40 [facility] Comment on above: The drugs N-Acetylcy steine and Metamizole may falsely depress this assay. Reference Range HDL <40 mg/dL Low HDL Cholesterol HDL >or= 60 mg/dL High HDL Cholesterol Serum or plasma cholesterol in VLDL measurement (mass/volume)Ordered By: Dr. Alvarenga on 03-18-2022 Cholesterol in VLDL [Mass/Vol] 19 mg/dL 5-40 [facility] Serum or plasma creatinine m easurement (mass/volume)Ordered By: Dr. Alvarenga on 03-18-2022 Creatinine [Mass/Vol] 1.07 mg/dL 0.70-1.30 [facility] Comment on above: The validity of the calculated GFR & GFRAA in patients over 70 years has not been determined. Clinical correlation is essential. Serum or plasma low density lipoprotein (LDL) cholesterol measurement (mass/volume)Ordered By: Dr. Alvarenga on 03-18-2022 Cholesterol in LDL [Mass/Vol] 59 mg/dL 0-130 [facility] Serum or plasma urea nitroge n measurement (mass/volume)Ordered By: Dr. Alvarenga on 03-18-2022 Urea nitrogen [Mass/Vol] 24 mg/dL 7-18 [facility] Thin prep Papanicolaou smear with manual screeningOrdered By: Dr. Alvarenga on 03-18-2022 Thin prep Papanicolaou smear with manual screening 26 U/L 15-37 [facility] Thin prep Papanicolaou smear with manual screening 6 5-15 [facility] Vital Signs Date Time Vital Sign Value Performing Clinician Facility 10-10-2023 09:22-0400 Diastolic Blood Pressure Non-Invasive 90 mm[Hg] DR ARON ALVAREZ MD [facility] 10-10-2023 09:22-0400 Heart rate 82 /min DR ARON ALVAREZ MD [facility] 10-10-2023 09:22-0400 Respiratory rate 14 /min DR ARON ALVAREZ MD [facility] 10-10-2023 09:22-0400 Systolic Blood Pressure Non-Invasive 143 mm[Hg] DR ARON ALVAREZ MD [facility] 10-10-2023 09:17-0400 Diastolic Blood Pressure Non-Invasive 90 mm[Hg] DR ARON ALVAREZ MD [facility] 10-10-2023 09:17-0400 Heart rate 89 /min DR ARON ALVAREZ MD [facility] 10-10-2023 09:17-0400 Respiratory rate 20 /min DR ARON ALVAREZ MD [facility] 10-10-2023 09:17-0400 Systolic Blood Pressure Non-Invasive 144 mm[Hg] DR ARON ALVAREZ MD [facility] 10-10-2023 09:12-0400 Diastolic Blood Pressure Non-Invasive 94 mm[Hg] DR ARON ALVAREZ MD [facility] 10-10-2023 09:12-0400 Heart rate 77 /min DR ARON ALVAREZ MD [facility] 10-10-2023 09:12-0400 Respiratory rate 14 /min DR ARON ALVAREZ MD [facility] 10-10-2023 09:12-0400 Systolic Blood Pressure Non-Invasive 139 mm[Hg] DR ARON ALVAREZ MD [facility] 10-10-2023 09:07-0400 Body temperature 97.7 [degF] DR ARON ALVAREZ MD [facility] 10-10-2023 09:05-0400 Respiratory Rate - Anes 17 br/min DR ARON ALVAREZ MD [facility] 10-10-2023 09:00-0400 Respiratory Rate - Anes 13 br/min DR ARON ALVAREZ MD [facility] 10-10-2023 08:55-0400 Respiratory Rate - Anes 12 br/min DR ARNO ALVAREZ MD [facility] 10-10-2023 07:49-0400 Body height 177.[address] ARON ALVAREZ MD [facility] 10-10-2023 07:49-0400 Body weight 102.[address] ARON ALVAREZ MD [facility] 10-10-2023 07:49-0400 Body weight 32.36 kg/m2 DR ARON ALVAREZ MD [facility] 10-10-2023 07:42-0400 Body height 177.[address] ARON ALVAREZ MD [facility] 10-10-2023 07:42-0400 Body temperature 97.88 [degF] DR ARON ALVAREZ MD [facility] 10-10-2023 07:42-0400 Body weight 102.[address] ARON ALVAREZ MD [facility] 10-10-2023 07:42-0400 Heart rate 78 /min DR ARON ALVAREZ MD [facility] 03-24-2023 19:50-0400 Heart rate 76 /min [facility] 03-24-2023 19:50-0400 Respiratory rate 16 /min [facility] 03-24-2023 19:50-0400 SaO2% (BldA) [Mass fraction] 98 % [facility] 03-24-2023 16:54-0400 Body height 175.26 cm [facility] 03-24-2023 16:54-0400 Body mass index (BMI) [Ratio] 22.3 kg/m2 [facility] 03-24-2023 16:54-0400 Body temperature 97 [degF] [facility] 03-24-2023 16:54-0400 Body weight 68.49 kg [facility] 03-24-2023 16:54-0400 Diastolic blood pressure 76 mm[Hg] [facility] 03-24-2023 16:54-0400 Systolic blood pressure 152 mm[Hg] [facility] Encounters Encounter Date Encounter Type Care Provider Facility Start: 02-25-2025 End: 02-25-[address] Vern Alvarenga MD Work Phone: -Laboratory [facility] Start: 02-25-2025 End: 02-25-[address] Vern Alvarenga MD -Laboratory [facility] Start: 02-25-2025 End: 02-25-2025 ambulatory Vern Alvarenga Facility:[facility] Start: 12-17-2024 End: 12-17-[address] Vern Alvarenga MD Work Phone: -Radiology [facility] Start: 12-17-2024 End: 12-17-[address] Vern Alvarenga MD -Radiology [facility] Work Phone: Start: 12-17-2024 End: 12-17-2024 ambulatory Vern Alvarenga Facility:[facility] Start: 08-08-2024 End: 08-08-[address] Vern Alvarenga MD Work Phone: [facility] Work Phone: Start: 08-08-2024 End: 08-08-[address] Vern Alvarenga MD [facility] Start: 08-08-2024 End: 08-08-2024 ambulatory Vern Alvarenga Facility:[facility] Start: 10-10-2023 End: 10-11-[address] ARON ALVAREZ MD Facility:B Start: 10-10-2023 End: 10-10-[address] ARON ALVAREZ MD [facility] Start: 08-26-2023 End: 08-26-2023 ambulatory [facility] Work Phone: Start: 08-26-2023 End: 08-26-2023 Patient encounter procedure [facility] Start: 06-22-2023 End: 06-22-2023 ambulatory VERN ALVARENGA Facility:[facility] Start: 05-10-2023 Telephone encounter Felipe bravo MD Work Phone: [facility] Comment on above: Future Appointment ( Esophageal manometry/) Future Appointment ( Esophageal manometry 05/26/23) Dysphagia, unspecifi ed type (Primary Dx); Spasm of throat muscle; Gastroesophageal reflux disease, unspecified whether esophagitis present Start: 03-24-2023 End: 03-24-2023 Emergency department patient visit [facility]-Emergency Department Work Phone: Start: 12-03-2022 End: 12-03-2022 ambulatory [facility] Work Phone: Start: 12-03-2022 End: 12-03-2022 Patient encounter procedure [facility] Start: 06-26-2022 End: 06-26-2022 ambulatory [facility] Work Phone: Start: 06-26-2022 End: 06-26-2022 Patient encounter procedure [facility] Start: 03-18-2022 End: 03-18-2022 ambulatory [facility] Work Phone: Start: 03-18-2022 End: 03-18-2022 Patient encounter procedure [facility] Procedures Date Procedure Procedure Detail [...] Date Care Activity Detail Author Start: 03-24-2023 [facility] Start: 02-04-2023 Influenza vaccination Influ[facility] Vaccine (#1) [facility] Start: 09-07-2022 Colonoscopy Colonoscopy [facility] Start: 09-07-2022 Colorectal Cancer Screening Colorectal Cancer Screening [facility] Start: 06-06-2022 Advance Directive Discussion Advance Directive Discussion [facility] Start: 06-06-2022 Depression Assessment Depression Assessment [facility] Start: 01-21-2020 Pneumococcal Vaccine: 65+ (1 - PCV) Pneumococcal Vaccine: 65+ (1 - PCV) [facility] Start: 09-07-2017 Sigmoidoscopy Sigmoidoscopy [facility] Start: 07-09-2015 Urine microalbumin profile DTaP,Tdap,Td Vaccine (2 - Td or Tdap) [facility] Start: 2015 RSV Vaccine (1 - 1-dose 60+ series) RSV Vaccine (1 - 1-dose 60+ series) [facility] Start: 11-17-2011 Lipid 1996 panel - Serum or Plasma Lipid Screening [facility] Start: 06-30-2010 Prostate Cancer Screening Discussion Prostate Cancer Screening Discussion [facility] Start: 06-30-2008 Diabetes Screening Diabetes Screening [facility] Start: 2005 Shingrix Vaccine (1 of 2) Shingrix Vaccine (1 of 2) [facility] Start: 01-21-2000 Cologuard (FIT-DNA) Cologuard (FIT-DNA) [facility] Start: 01-21-[address] Colonography [facility] Start: 01-21-2000 Fecal Occult Blood Fecal Occult Blood [facility] Start: 1973 Hepatitis C Screening Hepatitis C Screening [facility] Start: 1955 Covid-19 Vaccine (#1) Covid-19 Vaccine (#1) [facility] Start: 1955 Abdominal Aortic Aneurysm Screening Abdominal Aortic Aneurysm Screening [facility] Patient Education ED Laceration, Hand: All Closures [facility] Work Phone: Patient referral [facility] Work Phone: [facility] Immunizations Immunization Date Immunization Notes Care Provider Tony rodriguez 03-24-2023 tetanus toxoid, redu geraldine diphtheria toxoid, and acellular pertussis vaccine, adsorbed [facility] 05-17-2014 influenza virus vaccine, unspecified formulation Felipe Adamson MD Work Phone: [facility] 07-09-2005 tetanus toxoid, redu geraldine diphtheria toxoid, and acellular pertussis vaccine, adsorbed Felipe Adamson MD Work Phone: [facility] Work Phone: Payers Date Payer Category Payer Self-pay [id number] 2021 Unknown [id number] 2021 Unknown MMO MMO MEDICARE SUPPLEMENT [id number] 2021-Present [phone] [address] [place] [address] Indemnity [id number] 2017 Medicare [id number] 2017 Medicare MEDICARE MEDICAR E A AND B [id number] 2017-Present [phone] [address] [address] [place] [address] Medicare [id number] 2015 Unknown [id number] 1955 Unknown [id number] Private Health Insurance [id number] Unknown [id number] Unknown [id number] Unknown [id number] Unknown [id number] Social History Date Type Detail Facility Start: 01-01-2016 End: 03-24-2023 Tobacco smoking status NHIS Unknown if ever smoked [facility] Start: 1955 Sex Assigned At Male [facility] Start: 03-24-2023 Tobacco smoking stat us NHIS Ex-smoker [facility] End: 07-09-1993 History of tobacco use Current smoker [facility] End: 07-09-1993 History of tobacco use Cigarette Smoker [facility] Start: 05-07-2023 Alcohol intake Current non-dr skein yard drier of alcohol (finding) [facility] Start: 05-07-2023 History of Social function [facility] Start: 05-07-2023 Tobacco use panel [facility] Start: 1955 Sex Assigned At Not on file [facility] Sex Assigned At Sex [facility] Start: 08-18-2024 Sex Male (finding) [facility] Functional Status Date Assessment Result Facility 10-10-2023 Functional Status Awake [facility] 10-10-2023 Functional Status Maintained [facility] Mental Status Date Assessment Result Facility 10-10-2023 Mental Status Orientation Oriented x 4 [facility] 10-10-2023 Mental Status [facility] Clinical Notes 05-10-2023 to 12-18-2024 Telephone Encounter - Shruthi Monreal RN - 05/10/2023 4:12 PM ESTTelephone Encounter - Shruthi Monreal RN - 05/10/2023 2:14 PM EST Note Date & Type Note Facility 12-18-2024 Radiology Diagnostic study note [facility] Imaging Services [address], [place] [address] Ribs Uni Min 3V w/PA Chest MR#: [id number] Acct: [id number] Name: DIANE HERNANDES Rep #: [id number] : 1955 M 69 From: Micki Curtis MD PCP: Dr. Vern Alvarenga MD Status: REG C ZENON Study:Ribs Uni Min 3V w/PA Chest Date of Exam : 12/17/24 Exam# [id number] Ordering Dr: Vern Alvarenga MD EXAM: XR [...] IMPRESSION: No displaced rib fractures. [facility] CC: Dr. Vern Alvarenga MD ~ Help Aid: Signed [facility] 10-10-2023 Hospital Discharge instructions Patient Education 10/10/2023 [...] before eating solid foods. General instructions Take srze-ssg-owastqi and prescription medicines only as told by [...] 09/12/2016 Document Revised: 08/21/2018 Document Reviewed: 09/12/2016 [employer] Patient Education 2020 [employer]. 10/10/2023 09:18:47 9 - AO Minor Esophagogastroduodenoscopy [...] Up Care 09/27/2023 08:15:01 With:ARON ALVAREZ Address: [address] [facility] [address] [place] [phone] Business (1) When: only if needed Comments:No specimens were taken today. [facility] Note Discharge Instructions Thank you for allowing [facility] to assist you with your healthcare needs. The following is important discharge information regarding your hospital visit. What to do next Follow Up Appointments Follow Up with ARON ALVAREZ When Only if needed Why: No specimens were taken today. Where: [address] [facility] [address] [place] [phone] Business (1) The Following Activity and Diet [...] may report side effects to FDA at 8-712-VLO-7345. What other drugs will affect onabotulinumtoxinA (Botox)? Tell your doctor about all your other medicines, especially: a muscle relaxer; cold or allergy medicine; sleep medicine; an injectable antibiotic; a blood thinner--warfarin, Coumadin, Jantoven; or medicine used to prevent blood clots--alteplase, clopidogrel, dipyridamole, ticlopidine, and others. This list is not complete. Other drugs may affect Botox, including prescription and dskk-qql-xrtzfvo medicines, vitamins, and herbal products. Not all [...] to ensure that the information provided by [employer]. ('Multum') is accurate, up-to-date, and complete, but no guarantee is made to that effect. Drug information contained herein may be time sensitive. [employer] information has been compiled for use by healthcare practitioners and consumers in the [place] and therefore [employer] does not warrant that uses outside of the [place] are appropriate, unless specifically indicated otherwise. [employer] drug information does not endorse drugs, diagnose patients or recommend therapy. [employer] drug information is an informational resource designed [...] effective or appropriate for any given patient. [employer] does not assume any responsibility for any aspect of healthcare administered with the aid of information [employer] provides. The information contained herein is not intended to cover all possible uses, directions, precautions, warnings, drug interactions, allergic reactions, or adverse effects. If you have questions about the drugs you are taking, check with your doctor, nurse or pharmacist. Copyright 6014-5883 [employer]. Version: 10. Revision Date: 03/19/2022. Education Materials Monitored Anesthesia [...] before eating solid foods. General instructions Take tsqc-vtf-ruiubak and prescription medicines only as told by [...] 09/12/2016 Document Revised: 08/21/2018 Document Reviewed: 09/12/2016 [employer] Patient Education 2020 [employer] Esophagogastroduodenoscopy This is an endoscopic procedure [...] to receive it can visit one of [facility] vaccine clinics. There are many vaccine clinic locations within the [facility]. For locations and available times, please visit [email or web address] It is important to note that some COVID mobile vaccine clinics are held outdoors and may be canceled in rainy or stormy conditions. To learn more about pediatric vaccinations (ages 5-11), we invite you to visit the [employer] webpage. https://[email or web address].org/pages/[email or web address] 017-Rqwxv-Voejuywolcx-Frequently-Asked -Questions.html To learn more about the COVID-19 vaccine, we invite you to visit the CDC website for a list of frequently asked questions.https://www.cdc.gov/coronavi marty/2019-ncov/vaccines/faq.html [employer] Patient Portal Access Instructions: Stay connected with your healthcare team and access your personal medical information anytime with the [employer] Patient Portal. Please follow the directions below to create your [employer] account: 1.Access the email account you provided upon registration to the hospital/physician office.2.Look for an invitation email from [facility].3.Open the email and access the invitation link: Accept Invitation to [employer].4.Fill in the required copeland to create your account. To access your account, visit [employer]. Click the blue button labeled Access Patient [...] you will allow to register on the [facility] for access to your information. You can also access the [facility] OneChart Patient Portal on the [facility] Anywhere mirtha. Simply click on Patient Portal and then log into your account. If you would like to receive a full copy of your medical records, please contact the [facility] Medical Records Department by calling [phone], Tuesday through Tuesday between 8 a.m. and [...] Call your local pharmacy or go to [email or web address]/[email or web address] to find one close to you.3.Make use of household items: Use cat litter or old coffee grounds to dispose medications if other options are not available. Mix your drugs with these household products, seal them in an airtight container and throw it into the garbage. Call [facility]: [phone] to be sure your drugs can be [...] aware that I should contact my doctor. Patient/Case Manager Specialist Signature: _ Date/Time: Relationship to Patient: Witness Name/Signature: Date/Time: [facility] 10-10-2023 Note Date of Service October 10, 2023 Procedure Name EGD with Botox injection Consent Taken before procedure Indication Patient with dysphagia and E [id number] Location [facility] Pre-Procedure Exam Dysphagia abnormal esophageal manometry study [...] ARON ALVAREZ MD on 10/10/2023 09:12 AM [facility] 10-10-2023 Anesthesiology Consult note Patient: DIANE HERNANDES Age: 68 years Sex: Male : 1955 Associated Diagnoses: None Author: DREW MARRERO CEMENT CUTTER-TICKET COLLECTOR OR USHER Preoperative Information Anesthesia history Patient's history: negative. [...] Histories Past Medical History: Resolved Shoulder pain ([id number]) : Resolved. Comments: 12/05/2014 EDT 7:22 Kandace Pandey RN left DDD (degenerative disc disease), lumbar ([id number]) : Resolved. DDD (degenerative disc disease), cervical ([id number]) : Resolved. Osteoarthropathy ([id number]): Resolved. MPDS - Myofacial pain dysfunction syndrome ([id number]): Resolved. Facial twitching ([id number]) : Resolved. Family History: Heart disease Father Sister Brother Hyperchloremia Brother Cancer Mother Procedure history: Injection of trigger points ([id number]) on 04/24/2015 at 60 Years. Comments: 04/24/2015 10:58 FELECIA QUIÑONES RN JOSE LEFT SHOULDER; ALSO SHOULDER INJECTION LEFT SHOULDER Injection of facet joint ([id number]) on 04/03/2015 at 60 Years. Comments: 04/03/2015 12:14 KATLIN Pandey CERVICAL C4,C5,C6 Injection of steroid into shoulder joint ([id number]) on 04/02/2015 at 60 Years. Arthroscopic knee operation ([id number]) in 2010 at 56 Years. Vasectomy ([id number]) in 1986 at 32 Years. Tonsillectomy and adenoidectomy (355622985) in 1959 at 5 Years. Radiofrequency ablation of nerve root of cervical spine using fluoroscopic guidance ([id number]). TPI - Trigger point injection ([id number]). Comments: 12/05/2014 7:24 EDT - KATLIN Zhu left shoulder and neck Past surgical history of ([id number]). Comments: 12/05/2014 7:48 EDT - KATLIN Zhu [...] Height 177.8 cm Admission Weight 102.3 kg [place] Body Weight 73.00 kg BSA Admission 2.2 Body Mass Index 32.36 kg/m2 10/10/2023 7:42 EDT Height 177.8 cm Admission Weight 102.3 kg [place] Body Weight 73.00 kg Admission Body Mass [...] Height 177.8 cm Admission Weight 102.3 kg [place] Body Weight 73.00 kg BSA Admission 2.2 [...] Method Explanation, Printed materials Preferred Spoken Language Algerian Preferred Written Language Algerian Information Given by Patient Patient's Current Physicians Patient's Current Physicians Discharge To, Anticipated Home independently Prev Test Positive/Diagnosis w/COVID-19 No Current Quarantine/Isolated any Illness No Any Contact with Sick Animals/Birds No Traveled Anywhere in Last 30 Days Yes Travel Where Within [facility] State(s) [place] N/A Personal Devices, Patient Valuables None Admission Note-Nursing Procedure/Therapy Intake 10/10/2023 7:42 EDT Height 177.8 cm Admission Weight 102.3 kg [place] Body Weight 73.00 kg Admission Body Mass [...] Quadrants Hyperactive Skin Temperature Warm Skin Description [place], Dry Skin Integrity Intact Mucous Membrane Color [place] Skin Moisture General Dry Characteristics of Speech [...] Allergies Yes Anesthesia Extension Set Applied Yes 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 Assessment and Plan [place] Society of Anesthesiologists (ASA) physical status classification: Class III. Anesthetic Preoperative Plan Anesthetic technique: MAC. Postoperative pain management: Per surgeon. Risks discussed: nausea, vomiting, sore throat, dental injury, hypotension, allergic reaction, serious complications. Informed consent: signed by patient. Digitally Signed by DREW MARRERO on 10/10/2023 07:54 AM [facility] 05-10-2023 Miscellaneous Notes The patient returned my [...] Shruthi Monreal RN documented in this encounter [facility] 05-10-2023 Miscellaneous Notes I called patient on 05/07/23 and again today attempting to schedule the esophageal manometry ordered by Dr. Alvarez. I left a message with my contact number requesting a return call. Shruthi Monreal RN documented in this encounter [facility] Evaluation + Plan note No data available for this section [facility] Evaluation note No assessment information availa [facility] Work Phone: Evaluation note Diagnosis Dysphagia, unspecified type- Primary Spasm of throat muscle Achalasia and cardiospasm Gastroesophageal reflux disease, unspecified whether esophagitis present documented in this encounter [facility] for referral (narrative)No reason for [facility] Work Phone: Advance Directives No Advanced Directives Records Found Advance Directive Response Recorded Date/ Time Advance Directives Yes December 31 1:12pm Living Will Yes January 01, 2016 1:12pm Power of Manager Sales Training Yes December 31 1:12pm Advance Directive Response Recorded Date/ Time Advance Directives Yes December 31 12:12pm Living Will Yes January 01, 2016 12:12pm Power of Manager Sales Training Yes December 31 12:12pm Advance Directive Response Recorded Date/ Time Name of Medical Power of Manager Sales Training Ellie Hernandes March 24, 2023 6:04pm Advance Directives Yes December 31 1:12pm Living Will Yes March 24 6:04pm Power of Manager Sales Training Yes March 24, 2023 6:04pm Documents on File Type Date Recorded Patient Case Manager Specialist Expl anation Advance Directive(s) 11/01/2008 10:23 PM Advance Directive(s) 07/22/2006 Advance Directive Response Recorded Date/ Time Advance Directives Yes December 31 1:12pm Living Will Yes March 24 6:04pm Power of Manager Sales Training Yes March 24, 2023 6:04pm Advance Directive [...] Dr. 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 Vern Alvarenga MD Primary care physician Active Team Status: Inactive Member Role/Relationship Status Dates Dr. Vern Alvarenga MD Primary care physician Active Start: December 17, 2024 End: December 17, 2024 Dr. Vern Alvarenga MD Attending physician Active Start: December 17, 2024 End: December 17, 2024 Dr. Vern Alvarenga MD Referring Provider Active Start: December 17, 2024 End: December 17, 2024 Team Status: Inactive Member Role/Relationship Status Dates Dr. Vern Alvarenga MD Primary care physician Active Start: February 25, 2025 End: February 25, 2025 Dr. Vern Alvarenga MD Attending physician Active Start: February 25, 2025 End: February 25, 2025 Source Comments (unrecognize d section and content) In the event this informatio n is protected by the Federal Confidentiality of Alcohol and Drug Abuse Patient Records regulations: The Federal rules restrict any use of the information to criminally investigate or prosecute any alcohol or drug abuse patient.[facility] the event this information is protected by the Federal Confidentiality of Alcohol and Drug Abuse Patient Records regulations: The Federal rules restrict any use of the information to criminally investigate or prosecute any alcohol or drug abuse patient.[facility] the event this information is protected by the Federal Confidentiality of Alcohol and Drug Abuse Patient Records regulations: The Federal rules restrict any use of the information to criminally investigate or prosecute any alcohol or drug abuse patient.[facility] Reason for Visit (unrecogniz ed section and content) Reason Comments Future Appointment Esophageal manometry Reason Comments Future Appointment Esophageal manometry 05/26/23 (unrecognized sect ion and content) No Status Records FoundNo Status Records FoundNo Status Records Found INFORMATION SOURCE (unrecogn ized section and content) DATE CREATED AUTHOR 06/23/2023 [facility] DATE CREATED AUTHOR AUTHOR'S ORGANIZ ATION 10/13/2023 [facility] ([place]) DATE CREATED AUTHOR AUTHOR'S ORGANIZ ATION 03/09/2025 [facility] FOR RECORDS PERTAINING TO PATIENTS [...] BE BASED ON THE PRIMARY CLINICAL RECORDS. [facility]. provides no warranty or guarantee of the accuracy or completeness of information in this document.
== END | disposition home or self-care (01) ==
LOC: MTRAD 14:19
PROVIDERS: PCP Family Medicine; Referring Provider Clinical Nurse Specialist Adult Health; Visit Provider Clinical Nurse Specialist Adult Health
DX: M17.12 Unilateral primary osteoarthritis, left knee (principal); M51.369 Other intervertebral disc degeneration, lumbar region without mention of lumbar back pain or lower extremity pain
CPT/HCPCS: 72114; 73564